=== PATIENT | female | born 1950 | race Caucasian/White ===

== ENCOUNTER 2020-04-20 09:05 | Outpatient (REF) | payer MEDICARE, MEDICAID, SELFPAY ==
--- NOTE | 2020-04-20 09:09 | MM_ITS ---
EXAMINATION: MM SCREENING DIGITAL BREAST TOMOSYNTHESIS, BILATERAL CLINICAL INFORMATION: Screening. Asymptomatic. The lifetime risk of breast cancer based on the Tyrer-Cuzick Model is 7.0%. COMPARISON: Mammography: April 15, 2019 and studies dating back to February 12, 2012 TECHNIQUE: Digital breast tomosynthesis is performed in both the craniocaudal and mediolateral oblique views along with computer-aided detection (CAD). Synthesized 2D images are generated from the tomosynthesis. FINDINGS: The breasts are heterogeneously dense, which may obscure small masses (ACR BI-RADS breast composition Category c). There are no significant masses, abnormal calcifications, or other abnormalities. MM/MM tomosynthesis screening BI IMPRESSION: There are no significant changes from prior study. ASSESSMENT: BI-RADS 1: Negative RECOMMENDATION: Routine annual mammography screening. This patient's information was entered into a reminder system with a target due date for their next mammogram.
== END 2020-04-20 09:06 | disposition home or self-care (01) ==
LOC: HO.MAMMO 09:05
PROVIDERS: PCP Internal Medicine; Visit Provider Internal Medicine
DX: Z12.31 Encounter for screening mammogram for malignant neoplasm of breast (principal)
CPT/HCPCS: 77063; 77067

== ENCOUNTER 2020-06-20 06:21 | Outpatient (REF) | payer MEDICARE, MEDICAID, SELFPAY ==
[2020-06-20 07:05] LABS: Basophils Absolute Auto 0.1 X10*3/uL (0.0-0.2); Basophils Percent Auto 0.9 % (0-2); Eosinophils Absolute Auto 0.3 X10*3/uL (0.0-0.4); Eosinophils Percent Auto 4.7 % (0-4); Hematocrit 38.9 % (37-47); Hemoglobin 12.8 g/dl (12.0-16.0); Imm Gran Abs Auto 0.02 X10*3/uL (0.00-0.03); Imm Gran Pct Auto 0.3 % (0.0-0.4); Lymphocytes Absolute Auto 1.7 X10*3/uL (1.2-4.9); Lymphocytes Percent Auto 24.8 % (20-40); MANUAL DIFF FLAG NO; Mean Corpuscular HGB Conc 32.9 g/dl (31.0-35.0); Mean Corpuscular Hemoglobin 29.3 pg (27.0-33.0); Mean Platelet Volume 10.2 fL (9.4-12.3); Monocytes Absolute Auto 0.5 X10*3/uL (0.1-1.2); Monocytes Percent Auto 7.5 % (2-11); Neutrophils Absolute Auto 4.2 X10*3/uL (2.0-8.3); Neutrophils Percent Auto 61.8 % (45-73); Platelet Count 289 X10*3/uL (160-400); Red Blood Count 4.37 X10*6/uL (4.20-5.50); Red Cell Distribution Width 12.1 % (11.0-16.0); White Blood Count 6.8 X10*3/uL (4.8-10.8)
[2020-06-20 07:24] LABS: Glucose Urine UA NEG (NEG); Leukocyte Esterase Urine 1+ (NEG); Nitrite Urine NEG (NEG); Urine Blood TRACE (NEG); Urine Ketones NEG (NEG); Urine Protein NEG (NEG-TRACE)
[2020-06-20 07:29] LABS: Appearance Urine HAZY; Color Urine YELLOW
[2020-06-20 07:47] LABS: Alanine Aminotransferase 16 U/L (0-31); Albumin Level 4.3 g/dL (3.5-5.0); Alkaline Phosphatase 60 U/L (39-117); Anion Gap 11 (12-20); Aspartate Amino Transferase 19 U/L (5-31); Bilirubin Total 0.7 mg/dL (0.0-1.0); Blood Urea Nitrogen 23 mg/dL (9-16); Calcium 9.2 mg/dL (8.4-10.2); Carbon Dioxide 29 mmol/L (22-29); Chloride 101 mmol/L (96-108); Cholesterol 182 mg/dL; Estimated Glomerular Filt Rate > 60; Glucose Fasting 108 mg/dL (60-99); HDL Cholesterol 51 mg/dL; LDL Cholesterol Calculated 110 mg/dl; Potassium 3.9 mmol/l (3.3-5.1); Sodium 137 mmol/L (135-145); Total Protein 7.1 g/dL (6.5-8.0); Triglycerides 109 mg/dL
[2020-06-20 07:57] LABS: Bacteria Urine 1+ /LPF; Squamous Epithelial Cell Urine 3+ /LPF
[2020-06-20 07:58] LABS: Estimated Average Glucose 126 mg/dL
[2020-06-20 08:13] LABS: TSH reflex Free T4 5.96 mIU/mL (0.32-4.0); Vitamin D 25-OH Total 21.7 ng/mL (>30)
[2020-06-20 08:55] LABS: Free T4 (Free Thyroxine) 1.01 ng/dL (0.71-1.85)
== END 2020-06-20 06:22 | disposition home or self-care (01) ==
LOC: HO.LAB 06:21
PROVIDERS: PCP Internal Medicine; Visit Provider Internal Medicine
DX: Z00.00 Encounter for general adult medical examination without abnormal findings (principal); E78.00 Pure hypercholesterolemia, unspecified; I10 Essential (primary) hypertension; R73.01 Impaired fasting glucose; M81.0 Age-related osteoporosis without current pathological fracture
CPT/HCPCS: 36415; 80053; 80061; 81001; 82306; 83036; 84439; 84443; 85025; 87086

== ENCOUNTER 2021-02-21 06:10 | Outpatient (REF) | payer MEDICARE, OTHER, SELFPAY ==
[2021-02-21 06:58] LABS: MANUAL DIFF FLAG NO
[2021-02-21 07:00] LABS: Basophils Absolute Auto 0.1 X10*3/uL (0.0-0.2); Basophils Percent Auto 0.8 % (0-2); Eosinophils Absolute Auto 0.4 X10*3/uL (0.0-0.4); Eosinophils Percent Auto 4.7 % (0-4); Hematocrit 38.6 % (37-47); Hemoglobin 12.8 g/dl (12.0-16.0); Imm Gran Abs Auto 0.02 X10*3/uL (0.00-0.03); Imm Gran Pct Auto 0.3 % (0.0-0.4); Lymphocytes Absolute Auto 1.9 X10*3/uL (1.2-4.9); Lymphocytes Percent Auto 25.4 % (20-40); Mean Corpuscular HGB Conc 33.2 g/dl (31.0-35.0); Mean Corpuscular Hemoglobin 29.9 pg (27.0-33.0); Mean Corpuscular Volume 90.2 fL (80-98); Mean Platelet Volume 10.5 fL (9.4-12.3); Monocytes Absolute Auto 0.6 X10*3/uL (0.1-1.2); Monocytes Percent Auto 7.8 % (2-11); Neutrophils Absolute Auto 4.5 X10*3/uL (2.0-8.3); Platelet Count 296 X10*3/uL (160-400); Red Blood Count 4.28 X10*6/uL (4.20-5.50); Red Cell Distribution Width 12.9 % (11.0-16.0); White Blood Count 7.4 X10*3/uL (4.8-10.8)
[2021-02-21 07:15] LABS: Glucose Urine UA NEG (NEG); Leukocyte Esterase Urine NEG (NEG); Nitrite Urine NEG (NEG); Urine Blood NEG (NEG); Urine Ketones NEG (NEG); Urine Protein NEG (NEG-TRACE)
[2021-02-21 07:18] LABS: Appearance Urine CLEAR; Color Urine YELLOW
[2021-02-21 07:28] LABS: Cholesterol 185 mg/dL; HDL Cholesterol 58 mg/dL; LDL Cholesterol Calculated 101 mg/dl; Triglycerides 131 mg/dL
[2021-02-21 07:51] LABS: Free T4 (Free Thyroxine) 0.98 ng/dL (0.71-1.85); Vitamin D 25-OH Total 37.3 ng/mL (>30)
== END 2021-02-21 06:11 | disposition home or self-care (01) ==
LOC: HO.LAB 06:10
PROVIDERS: PCP Internal Medicine; Visit Provider Internal Medicine
DX: E55.9 Vitamin D deficiency, unspecified (principal); I10 Essential (primary) hypertension; E78.00 Pure hypercholesterolemia, unspecified; R79.89 Other specified abnormal findings of blood chemistry; J30.9 Allergic rhinitis, unspecified
CPT/HCPCS: 36415; 80061; 81003; 82306; 84439; 84443; 85025

== ENCOUNTER 2021-03-13 08:18 | Outpatient (REF) | payer MEDICARE, MEDICAID, SELFPAY ==
--- NOTE | ~2021-03-13 | MM_ITS ---
EXAMINATION: BONE DENSITOMETRY CLINICAL INDICATION: Menopause. COMPARISON: Previous BD dated 02/10/2018 and baseline BD dated 06/01/2014. TECHNIQUE: Using a tydy DXA System (software version: 13.1) manufactured by [employer], dual-energy x-ray absorptiometry was performed of the lumbar spine and left hip. The images are of good technical quality. Summary results are attached. FINDINGS: AP SPINE L1-L4: Current: BMD 0.989 g/cm2, Z-score 0.2, T-score -1.6, osteopenia, 13.0% increase from previous, 9.2% increase from baseline (<5% change is not significant). Prior: BMD 0.875 g/cm2. Baseline: BMD 0.906 g/cm2. LEFT FEMUR, NECK: Current: BMD 0.855 g/cm2, Z-score 0.5, T-score -1.3, osteopenia. Prior: BMD 0.836 g/cm2. Baseline: BMD 0.832 g/cm2. LEFT FEMUR, TOTAL: Current: BMD 0.928 g/cm2, Z-score 1.0, T-score -0.6, normal, 3.8% increase from previous, 5.3% increase from baseline (<5% change is not significant). Prior: BMD 0.894 g/cm2. Baseline: BMD 0.881 g/cm2. IDENTIFIED RISK FACTORS: Menopause, Thiazide. HISTORY OF FRACTURE: None listed. MEDICATIONS: Vitamin D, bisphosphonate. MM/XR DEXA axial skeleton IMPRESSION: 1. DIAGNOSIS: Osteopenia based on the lowest T-score value of -1.6 in the lumbar spine applying World Health Organization criteria. 2. 10-YEAR FRACTURE RISK PREDICTION, FRAX: Major osteoporotic fracture (clinical spine, forearm, hip or shoulder) 5.4%. Hip fracture 0.8%. 3. Treatment Recommendations: NOF guidelines recommend consideration for treatment in postmenopausal women and men age 50 and older presenting with the following: -A hip or vertebral (clinical or morphometric) fracture. -T-score less than or equal to -2.5 at the femoral neck or spine after appropriate evaluation to exclude secondary causes. -Low bone mass at the hip or spine and a 10-year fracture probability by FRAX of greater than or equal to 3% for hip fracture or greater than or equal to 20% for major osteoporotic fracture based on the [place] adapted WHO algorithm. 4. Other Recommendations: All treatment decisions require clinical judgment and consideration of individual patient factors, including patient preferences, comorbidities, previous drug use, risk factors not captured in the FRAX model (e.g. frailty, falls, vitamin D deficiency, increased bone turnover, interval significant decline in bone density) and possible under or overestimation of fracture risk by FRAX. Additional medical evaluation for secondary cause of low bone mineral density may be appropriate. FUTURE SCAN RECOMMENDATION: People with diagnosed cases of osteoporosis or at high risk for fracture should have regular bone mineral density tests. For patients eligible for Medicare, routine testing is allowed once every 2 years. The testing frequency can be increased to one year for patients who have rapidly progressing disease, those who are receiving or discontinuing medical therapy to restore bone mass, or have additional risk factors.
== END 2021-03-13 08:19 | disposition home or self-care (01) ==
LOC: HO.MAMMO 08:18
PROVIDERS: Visit Provider Internal Medicine
DX: Z13.820 Encounter for screening for osteoporosis (principal); M85.80 Other specified disorders of bone density and structure, unspecified site; Z78.0 Asymptomatic menopausal state; Z79.899 Other long term (current) drug therapy
CPT/HCPCS: 77080

== ENCOUNTER 2021-04-22 08:13 | Outpatient (REF) | payer MEDICARE, MEDICAID, SELFPAY ==
--- NOTE | ~2021-04-22 | MM_ITS ---
EXAMINATION: MM SCREENING DIGITAL BREAST TOMOSYNTHESIS, BILATERAL CLINICAL INFORMATION: Screening. Asymptomatic. The lifetime risk of breast cancer based on the Tyrer-Cuzick Model is 6.5%. COMPARISON: Mammography: April 20, 2020 and studies dating back to July 20, 2011 TECHNIQUE: Digital breast tomosynthesis is performed in both the craniocaudal and mediolateral oblique views along with computer-aided detection (CAD). Synthesized 2D images are generated from the tomosynthesis. FINDINGS: The breasts are heterogeneously dense, which may obscure small masses (ACR BI-RADS breast composition Category c). There are no significant masses, abnormal calcifications, or other abnormalities. MM/MM tomosynthesis screening BI IMPRESSION: There are no significant changes from prior study. ASSESSMENT: BI-RADS 1: Negative RECOMMENDATION: Routine annual mammography screening. This patient's information was entered into a reminder system with a target due date for their next mammogram.
== END 2021-04-22 08:14 | disposition home or self-care (01) ==
LOC: HO.MAMMO 08:13
PROVIDERS: Visit Provider Internal Medicine
DX: Z12.31 Encounter for screening mammogram for malignant neoplasm of breast (principal)
CPT/HCPCS: 77063; 77067

== ENCOUNTER 2021-10-22 06:15 | Outpatient (REF) | payer MEDICARE, OTHER, SELFPAY ==
[2021-10-22 06:36] LABS: MANUAL DIFF FLAG NO
[2021-10-22 07:23] LABS: Basophils Absolute Auto 0.1 X10*3/uL (0.0-0.2); Basophils Percent Auto 0.8 % (0-2); Eosinophils Absolute Auto 0.3 X10*3/uL (0.0-0.4); Eosinophils Percent Auto 4.9 % (0-4); Hematocrit 37.1 % (37.0-47.0); Hemoglobin 12.2 g/dl (12.0-16.0); Imm Gran Abs Auto 0.02 X10*3/uL (0.00-0.03); Imm Gran Pct Auto 0.3 % (0.0-0.4); Lymphocytes Absolute Auto 1.8 X10*3/uL (1.2-4.9); Lymphocytes Percent Auto 27.2 % (20-40); Mean Corpuscular HGB Conc 32.9 g/dl (31.0-35.0); Mean Corpuscular Hemoglobin 29.8 pg (27.0-33.0); Mean Corpuscular Volume 90.5 fL (80.0-98.0); Mean Platelet Volume 10.4 fL (9.4-12.3); Monocytes Absolute Auto 0.6 X10*3/uL (0.1-1.2); Monocytes Percent Auto 9.4 % (2-11); Neutrophils Absolute Auto 3.7 x10*3/uL (2.0-8.3); Neutrophils Percent Auto 57.4 % (45-73); Platelet Count 288 X10*3/uL (160-400); Red Cell Distribution Width 12.5 % (11.0-16.0); White Blood Count 6.5 X10*3/uL (4.8-10.8)
[2021-10-22 07:51] LABS: Alanine Aminotransferase 16 U/L (0-31); Albumin Level 4.1 g/dL (3.5-5.0); Alkaline Phosphatase 63 U/L (39-117); Anion Gap 11 (12-20); Aspartate Amino Transferase 19 U/L (5-31); Bilirubin Total 0.7 mg/dL (0.0-1.0); Blood Urea Nitrogen 26 mg/dL (9-16); Calcium 9.6 mg/dL (8.4-10.2); Carbon Dioxide 30 mmol/L (22-29); Chloride 101 mmol/L (96-108); Cholesterol 188 mg/dL; Estimated Glomerular Filt Rate > 60; Glucose Fasting 123 mg/dL (60-99); HDL Cholesterol 48 mg/dL; LDL Cholesterol Calculated 112 mg/dl; Sodium 138 mmol/L (135-145); Triglycerides 143 mg/dL
[2021-10-22 08:14] LABS: TSH reflex Free T4 5.15 uIU/mL (0.32-4.0); Vitamin D 25-OH Total 24.8 ng/mL (>30)
[2021-10-22 08:21] LABS: Appearance Urine CLEAR; Color Urine YELLOW; Glucose Urine UA NEG (NEG); Leukocyte Esterase Urine NEG (NEG); Nitrite Urine NEG (NEG); Urine Blood NEG (NEG); Urine Ketones NEG (NEG); Urine Protein NEG (NEG-TRACE)
[2021-10-22 08:22] LABS: Estimated Average Glucose 128 mg/dL; Hemoglobin A1c % 6.1 %
[2021-10-22 09:17] LABS: Free T4 (Free Thyroxine) 0.92 ng/dL (0.71-1.85)
== END 2021-10-22 06:16 | disposition home or self-care (01) ==
LOC: HO.LAB 06:15
PROVIDERS: PCP Internal Medicine; Visit Provider Internal Medicine
DX: I10 Essential (primary) hypertension (principal); E78.00 Pure hypercholesterolemia, unspecified; E55.9 Vitamin D deficiency, unspecified; R73.01 Impaired fasting glucose
CPT/HCPCS: 36415; 80053; 80061; 81003; 82306; 83036; 84439; 84443; 85025

== ENCOUNTER 2021-10-31 10:04 | Outpatient (REF) | payer MEDICARE, OTHER, SELFPAY ==
--- NOTE | ~2021-10-31 | XR_ITS ---
EXAMINATION: XR FINGER, RIGHT CLINICAL INFORMATION: Pain in joints. COMPARISON: None. TECHNIQUE: 3 views right 2nd digit. FINDINGS: There is mild loss of joint space with periarticular spurring DIP joint 2nd digit with mild soft tissue swelling. In addition, there is mild loss of joint space in the PIP and DIP joints of all digits with mild periarticular spurring in the PIP joints of the 2nd and 3rd digits. Also visualized is mild loss of 1st carpometacarpal joint space with irregular-appearing articular surface. No acute fracture or lytic process seen. XR/XR finger RT min 2V IMPRESSION: Advanced degenerative changes in the DIP joint of the 2nd digits with exuberant periarticular spurring and mild soft tissue swelling. There are mild degenerative osteoarthritic changes PIP and DIP joints of the 2nd through 5th digits.
== END 2021-10-31 10:05 | disposition home or self-care (01) ==
LOC: HO.XRAY 10:04
PROVIDERS: PCP Internal Medicine; Visit Provider Internal Medicine
DX: M25.541 Pain in joints of right hand (principal)
CPT/HCPCS: 73140

== ENCOUNTER 2022-02-25 06:11 | Outpatient (REF) | payer MEDICARE, OTHER, SELFPAY ==
[2022-02-25 06:22] LABS: MANUAL DIFF FLAG NO
[2022-02-25 07:15] LABS: Basophils Absolute Auto 0.1 X10*3/uL (0.0-0.2); Basophils Percent Auto 1.1 % (0-2); Eosinophils Absolute Auto 0.4 X10*3/uL (0.0-0.4); Eosinophils Percent Auto 5.8 % (0-4); Hematocrit 37.1 % (37.0-47.0); Hemoglobin 12.4 g/dl (12.0-16.0); Imm Gran Abs Auto 0.02 X10*3/uL (0.00-0.03); Imm Gran Pct Auto 0.3 % (0.0-0.4); Lymphocytes Absolute Auto 2.2 X10*3/uL (1.2-4.9); Lymphocytes Percent Auto 34.3 % (20-40); Mean Corpuscular HGB Conc 33.4 g/dl (31.0-35.0); Mean Corpuscular Volume 89.6 fL (80.0-98.0); Mean Platelet Volume 10.4 fL (9.4-12.3); Monocytes Absolute Auto 0.5 X10*3/uL (0.1-1.2); Monocytes Percent Auto 7.8 % (2-11); Neutrophils Absolute Auto 3.2 x10*3/uL (2.0-8.3); Neutrophils Percent Auto 50.7 % (45-73); Platelet Count 283 X10*3/uL (160-400); Red Blood Count 4.14 X10*6/uL (4.20-5.50); Red Cell Distribution Width 12.7 % (11.0-16.0); White Blood Count 6.3 X10*3/uL (4.8-10.8)
[2022-02-25 07:17] LABS: Appearance Urine Clear; Color Urine Yellow; Glucose Urine UA Negative (Negative); Leukocyte Esterase Urine Negative (Negative); Nitrite Urine Negative (Negative); Urine Blood Negative (Negative); Urine Ketones Negative (Negative); Urine Protein Negative (Neg-Trace)
[2022-02-25 07:41] LABS: Alanine Aminotransferase 14 U/L (0-31); Albumin Level 4.3 g/dL (3.5-5.0); Alkaline Phosphatase 64 U/L (39-117); Anion Gap 14 (12-20); Aspartate Amino Transferase 18 U/L (5-31); Bilirubin Total 0.6 mg/dL (0.0-1.0); Blood Urea Nitrogen 23 mg/dL (9-16); Calcium 9.2 mg/dL (8.4-10.2); Carbon Dioxide 29 mmol/L (22-29); Chloride 102 mmol/L (96-108); Cholesterol 174 mg/dL; Estimated Glomerular Filt Rate 50; Glucose Fasting 104 mg/dL (60-99); HDL Cholesterol 55 mg/dL; LDL Cholesterol Calculated 90 mg/dl; Sodium 141 mmol/L (135-145); Total Protein 7.2 g/dL (6.5-8.0); Triglycerides 147 mg/dL; Uric Acid 7.8 mg/dL (2.4-5.7)
[2022-02-25 08:00] LABS: Erythrocyte Sedimentation Rate 7 MM/HR (0-20)
[2022-02-25 08:03] LABS: Thyroid Stimulating Hormone 5.28 uIU/mL (0.32-4.0); Vitamin D 25-OH Total 29.2 ng/mL (>30)
== END 2022-02-25 06:12 | disposition home or self-care (01) ==
LOC: HO.LAB 06:11
PROVIDERS: PCP Internal Medicine; Visit Provider Internal Medicine
DX: M25.549 Pain in joints of unspecified hand (principal); E78.00 Pure hypercholesterolemia, unspecified; R79.89 Other specified abnormal findings of blood chemistry; E55.9 Vitamin D deficiency, unspecified; I10 Essential (primary) hypertension
CPT/HCPCS: 36415; 80053; 80061; 81003; 82306; 84439; 84443; 84550; 85025; 85652

== ENCOUNTER 2022-04-28 09:13 | Outpatient (REF) | payer MEDICARE, OTHER, SELFPAY ==
--- NOTE | ~2022-04-28 | MM_ITS ---
EXAMINATION: MM SCREENING DIGITAL BREAST TOMOSYNTHESIS, BILATERAL CLINICAL INFORMATION: Screening. Asymptomatic. Status post left breast lumpectomy 1994 COMPARISON: Mammography: April 22, 2021 and studies dating back to January 10, 2014 TECHNIQUE: Digital breast tomosynthesis is performed in both the craniocaudal and mediolateral oblique views along with computer-aided detection (CAD). Synthesized 2D images are generated from the tomosynthesis. FINDINGS: There are scattered areas of fibroglandular density (ACR BI-RADS breast composition Category b). There are no significant masses, abnormal calcifications, or other abnormalities. MM/MM tomosynthesis screening BI IMPRESSION: No significant changes from prior exam. ASSESSMENT: BI-RADS 1: Negative RECOMMENDATION: Routine annual mammography screening. This patient's information was entered into a reminder system with a target due date for their next mammogram.
== END 2022-04-28 09:14 | disposition home or self-care (01) ==
LOC: HO.MAMMO 09:13
PROVIDERS: PCP Internal Medicine; Visit Provider Internal Medicine
DX: Z12.31 Encounter for screening mammogram for malignant neoplasm of breast (principal)
CPT/HCPCS: 77063; 77067

== ENCOUNTER 2022-06-25 06:21 | Outpatient (REF) | payer MEDICARE, OTHER, SELFPAY ==
[2022-06-25 06:26] LABS: MANUAL DIFF FLAG NO
[2022-06-25 07:26] LABS: Basophils Absolute Auto 0.1 X10*3/uL (0.0-0.2); Basophils Percent Auto 0.9 % (0-2); Eosinophils Absolute Auto 0.4 X10*3/uL (0.0-0.4); Eosinophils Percent Auto 5.8 % (0-4); Hemoglobin 12.6 g/dl (12.0-16.0); Imm Gran Abs Auto 0.01 X10*3/uL (0.00-0.03); Imm Gran Pct Auto 0.1 % (0.0-0.4); Lymphocytes Absolute Auto 1.8 X10*3/uL (1.2-4.9); Lymphocytes Percent Auto 27.4 % (20-40); Mean Corpuscular HGB Conc 32.3 g/dl (31.0-35.0); Mean Corpuscular Hemoglobin 29.2 pg (27.0-33.0); Mean Corpuscular Volume 90.5 fL (80.0-98.0); Mean Platelet Volume 10.6 fL (9.4-12.3); Monocytes Absolute Auto 0.5 X10*3/uL (0.1-1.2); Monocytes Percent Auto 7.3 % (2-11); Neutrophils Absolute Auto 3.9 x10*3/uL (2.0-8.3); Neutrophils Percent Auto 58.5 % (45-73); Platelet Count 305 X10*3/uL (160-400); Red Blood Count 4.31 X10*6/uL (4.20-5.50); Red Cell Distribution Width 12.5 % (11.0-16.0); White Blood Count 6.7 X10*3/uL (4.8-10.8)
[2022-06-25 07:58] LABS: Estimated Average Glucose 120 mg/dL; Hemoglobin A1c % 5.8 %
[2022-06-25 08:20] LABS: Alanine Aminotransferase 16 U/L (0-31); Albumin Level 4.4 g/dL (3.5-5.0); Alkaline Phosphatase 68 U/L (39-117); Anion Gap 14 (12-20); Aspartate Amino Transferase 17 U/L (5-31); Bilirubin Total 0.6 mg/dL (0.0-1.0); Blood Urea Nitrogen 29 mg/dL (9-16); Calcium 9.7 mg/dL (8.4-10.2); Carbon Dioxide 29 mmol/L (22-29); Chloride 102 mmol/L (96-108); Cholesterol 197 mg/dL; Estimated Glomerular Filt Rate 52; Glucose Fasting 108 mg/dL (60-99); HDL Cholesterol 54 mg/dL; LDL Cholesterol Calculated 112 mg/dl; Potassium 3.8 mmol/L (3.3-5.1); Sodium 141 mmol/L (135-145); Thyroid Stimulating Hormone 6.44 uIU/mL (0.32-4.0); Total Protein 7.3 g/dL (6.5-8.0); Triglycerides 159 mg/dL; Uric Acid 7.5 mg/dL (2.4-5.7)
[2022-06-25 08:25] LABS: Folate 16.2 ng/mL (> or = 4.0); Vitamin B12 462 pg/mL (200-900)
[2022-06-25 09:05] LABS: Appearance Urine Turbid; Color Urine Yellow; Glucose Urine UA Negative (Negative); Leukocyte Esterase Urine Moderate (2+) (Negative); Nitrite Urine Negative (Negative); PH 5.5 (5.0-9.0); UMIC TRIGGER UACC YES; Urine Blood Trace (Negative); Urine Ketones Negative (Negative); Urine Protein Negative (Neg-Trace)
[2022-06-25 09:13] LABS: Bacteria Urine 3+ (None Seen); Hyaline Casts Urine 0-2 /LPF (0-2); RBC Urine 0-2 /HPF (0-2); Squamous Epithelial Cell Urine >20 /HPF (0-2); UACC Culture Trigger YES; WBC Urine 21-50 /HPF (0-5)
[2022-06-25 13:12] LABS: Free T4 (Free Thyroxine) 0.88 ng/dL (0.71-1.85)
== END 2022-06-25 06:22 | disposition home or self-care (01) ==
LOC: HO.LAB 06:21
PROVIDERS: PCP Internal Medicine; Visit Provider Internal Medicine
DX: R73.01 Impaired fasting glucose (principal); E55.9 Vitamin D deficiency, unspecified; B02.29 Other postherpetic nervous system involvement; R20.2 Paresthesia of skin; E79.0 Hyperuricemia without signs of inflammatory arthritis and tophaceous disease; I10 Essential (primary) hypertension; E78.00 Pure hypercholesterolemia, unspecified
CPT/HCPCS: 36415; 80053; 80061; 81001; 81003; 82306; 82607; 82746; 83036; 84439; 84443; 84550; 85025; 87086

== ENCOUNTER 2023-01-13 06:02 | Outpatient (REF) | payer MEDICARE, OTHER, SELFPAY ==
[2023-01-13 06:19] LABS: MANUAL DIFF FLAG NO
[2023-01-13 07:25] LABS: Basophils Absolute Auto 0.1 X10*3/uL (0.0-0.2); Basophils Percent Auto 0.7 % (0-2); Eosinophils Absolute Auto 0.3 X10*3/uL (0.0-0.4); Hematocrit 36.4 % (37.0-47.0); Imm Gran Abs Auto 0.02 X10*3/uL (0.00-0.03); Imm Gran Pct Auto 0.3 % (0.0-0.4); Lymphocytes Percent Auto 29.2 % (20-40); Mean Corpuscular Hemoglobin 30.2 pg (27.0-33.0); Mean Corpuscular Volume 91.5 fL (80.0-98.0); Mean Platelet Volume 10.5 fL (9.4-12.3); Monocytes Absolute Auto 0.5 X10*3/uL (0.1-1.2); Monocytes Percent Auto 7.6 % (2-11); Neutrophils Absolute Auto 3.9 x10*3/uL (2.0-8.3); Neutrophils Percent Auto 57.2 % (45-73); Platelet Count 269 X10*3/uL (160-400); Red Blood Count 3.98 X10*6/uL (4.20-5.50); Red Cell Distribution Width 12.5 % (11.0-16.0); White Blood Count 6.9 X10*3/uL (4.8-10.8)
[2023-01-13 07:29] LABS: Appearance Urine Cloudy; Color Urine Yellow; Glucose Urine UA Negative (Negative); Leukocyte Esterase Urine Small (1+) (Negative); Nitrite Urine Negative (Negative); Specific Gravity - Urine 1.015 (1.005-1.025); UMIC TRIGGER UACC YES; Urine Blood Negative (Negative); Urine Ketones Negative (Negative); Urine Protein Negative (Neg-Trace)
[2023-01-13 07:31] LABS: Bacteria Urine 1+ (None Seen); Hyaline Casts Urine 0-2 /LPF (0-2); RBC Urine 0-2 /HPF (0-2); UACC Culture Trigger YES
[2023-01-13 07:31] LABS: Estimated Average Glucose 120 mg/dL; Hemoglobin A1c % 5.8 %
[2023-01-13 08:12] LABS: Alanine Aminotransferase 15 U/L (0-31); Albumin Level 4.2 g/dL (3.5-5.0); Alkaline Phosphatase 54 U/L (39-117); Anion Gap 12 (12-20); Aspartate Amino Transferase 18 U/L (5-31); Bilirubin Total 0.6 mg/dL (0.0-1.0); Blood Urea Nitrogen 24 mg/dL (9-16); Calcium 9.7 mg/dL (8.4-10.2); Carbon Dioxide 29 mmol/L (22-29); Chloride 103 mmol/L (96-108); Cholesterol 174 mg/dL; Estimated Glomerular Filt Rate > 60; Glucose Fasting 105 mg/dL (60-99); HDL Cholesterol 51 mg/dL; LDL Cholesterol Calculated 95 mg/dl; Potassium 3.8 mmol/L (3.3-5.1); Sodium 140 mmol/L (135-145); Total Protein 7.1 g/dL (6.5-8.0); Triglycerides 142 mg/dL
[2023-01-13 08:30] LABS: TSH reflex Free T4 5.46 uIU/mL (0.32-4.0); Vitamin D 25-OH Total 40.2 ng/mL (>30)
[2023-01-13 09:13] LABS: Free T4 (Free Thyroxine) 0.93 ng/dL (0.71-1.85)
== END 2023-01-13 06:03 | disposition home or self-care (01) ==
LOC: HO.LAB 06:02
PROVIDERS: PCP Internal Medicine; Visit Provider Internal Medicine
DX: E55.9 Vitamin D deficiency, unspecified (principal); I10 Essential (primary) hypertension; R73.01 Impaired fasting glucose; E78.00 Pure hypercholesterolemia, unspecified; R82.90 Unspecified abnormal findings in urine
CPT/HCPCS: 36415; 80053; 80061; 81001; 82306; 83036; 84439; 84443; 85025; 87086

== ENCOUNTER 2023-01-20 14:48 | Outpatient (AMB) | payer MEDICARE, MEDICAID, SELFPAY ==
[2023-01-20 14:52] VITALS: BP 116/60; PULSE 78; O2SAT 96; BMI 22.9
--- NOTE | 2023-01-20 14:52 | MHC.PC.OV ---
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 Accompanied by: Self / Same As Patient Allergies No Known Allergies [No Known Allergies*] Allergy (Verified 01/20/23 15:36) Medication List - Last Reconciled 01/20/23 by Jean Marie Lindsay MD alendronate 70 mg PO QWEEK 90 days atorvastatin 20 mg PO DAILY cholecalciferol (vitamin D3) 50 mcg PO DAILY 90 days famotidine 40 mg PO BEDTIME fluticasone propionate 50 mcg/actuation 2 sprays intranasal DAILY PRN 30 days hydrochlorothiazide 25 mg PO QAM latanoprost 0.005% 1 drp ophthalmic (eye) BEDTIME loratadine 10 mg PO DAILY PRN ropinirole 0.25 mg PO BEDTIME 30 days timolol maleate 0.5% 0 drps ophthalmic (eye) valsartan 160 mg PO DAILY 90 days Tobacco use date assessed: 01/20/23 Fall risk assessment: No Falls in past year Last assessed Fall Risk: 01/20/23 Dental Screening Dental Screen Date: 01/20/23 Did you have a dental visit in the last 12 months?: No Did you have a dental problem in the last 6 months where you did not have access to dental care?: No Was dental information given to patient?: Patient has dentist HPI 4M Follow Up hyperlipidemia, HTN HPI Details Patient comes in today for her follow up visit States that she feels okay She denies any headaches or dizziness Denies any chest pains, no SOB No nausea/vomiting, no abdominal pain No change in bowel habits noted Had her follow up labs done last week - to discuss her results [facility] Medical History Allergic rhinitis Benign essential hypertension Elevated TSH Glaucoma IFG (impaired fasting glucose) Impaired fasting glucose Medicare annual wellness visit, initial Osteoporosis Pure hypercholesterolemia Vitamin D deficiency Surgical History History of biopsy History of breast biopsy History of foot surgery History of hard lump in extremity History of tubal ligation Hx of colonoscopy (~09/22/16) Family History Father No problems noted. Mother Breast cancer Sister Breast cancer Sister Uterine cancer Brother DVT (deep venous thrombosis) Social History Housing: House Alcohol intake: current Alcohol intake frequency: a few times a week Alcohol type: wine Patient Tobacco Use Status: Former Tobacco user Second Hand Smoke Exposure: Yes service: No Current occupational status: retired Cognitive needs: No Hearing needs: No Vision needs: Yes Questionnaire PHQ-9 Over the last 2 weeks, how often have you been bothered by any of the following problems? 1. Little interest or pleasure in doing things: not at all 2. Feeling down, depressed, or hopeless: not at all 3. Trouble falling or staying asleep, or sleeping too much: not at all 4. Feeling tired or having little energy: not at all 5. Poor appetite or overeating: not at all 6. Feeling bad about yourself - or that you are a failure or have let yourself or your family down: not at all 7. Trouble concentrating on things, such as reading the newspaper or watching television: not at all 8. Moving or speaking so slowly that other people could have noticed. Or the opposite - being so fidgety or restless that you have been moving around a lot more than usual: not at all 9. Thoughts that you would be better off or of hurting yourself in some way: not at all Total score: 0 Depression Screening Interpretation: Negative 85223 - PHQ-9 Billing: Yes Source: Developed by Drs. Louis House, Supriya Dang, Severo Cid and colleagues, with an educational justine from [employer]. Thrive Questionnaire Date Thrive assessed: 01/20/23 I am a: Patient What is your living situation today?: I have a steady place to live Within the past 12 months, did the food you bought not last and you didn't have the money to get more?: Never true Within the past 12 months, did you worry whether your food would run out before you got money to buy more?: Never true Do you have trouble paying for medicines?: No Do you have trouble getting transportation to medical appointments?: No Do you have trouble paying your heating and electricity bill?: No Do you have trouble taking care of your child, family member or friend?: No Do you have trouble with day-to-day activities such as bathing, preparing meals, shopping, managing finances, etc.?: No Are you currently unemployed and looking for a job?: No Are you interested in more education?: No Please select the resources that you would like help with: None Currently or been in a relationship where the following occur: no concerns reported AUDIT C Alcohol Use Questionnaire (AUDIT-C) 1. How often do you have a drink containing alcohol?: 2-3 times a week 2. How many drinks containing alcohol do you have on a typical day when you are drinking?: 1 or 2 3. How often do you have six or more drinks on one occasion?: Never Total Score: 3 Score Reviewed/Action Taken: Yes LAITH-7 AMB Questionnaire LAITH-7 Date LAITH - 7 assessed: 01/20/23 Feeling nervous, anxious, or on edge: 0 = Not at all Not being able to stop or control worryin = Not at all Worrying too much about different things: 0 = Not at all Trouble relaxin = Not at all Being so restless that it is hard to sit still: 0 = Not at all Becoming easily annoyed or irritable: 0 = Not at all Feeling afraid as if something awful might happen: 0 = Not at all Total LAITH-7 score (0-4 normal; 5-9 mild; 10-14 moderate; 15-21 severe): 0 Source: Developed by Drs. Louis House, Supriya Dang, Severo Cid and colleagues, with an educational justine from [employer]. Review of Systems Const Denies chills, Denies fatigue, Denies fever(s) and Denies headache(s) ENT Denies dysphagia, Denies dizziness, Denies otalgia, Denies headache(s), Denies neck pain, Denies odynophagia and Denies sore throat Card Denies chest pain, Denies palpitations and Denies dyspnea Resp Denies cough and Denies dyspnea GI Denies abdominal pain, Denies constipation, Denies dysphagia, Denies heartburn, Denies diarrhea, Denies nausea, Denies odynophagia and Denies vomiting Denies difficulty voiding, Denies nocturia and Denies dysuria Musc Denies neck pain and Reports numbness (in the toes - worse at night) Neuro Details: (+) recurrent cramping pain in legs, worse at night Denies dizziness, Denies headache(s) and Reports numbness (in the toes - worse at night) Endo Denies fatigue and Denies palpitations Physical exam (Primary Care) Vital Signs: Last Vital Signs Pulse 78 01/20/23 14:52 BP 116/60 01/20/23 14:52 Pulse Ox 96 01/20/23 14:52 Oxygen Delivery Method Room Air 01/20/23 14:52 BMI result Body Mass Index 22.9 Tobacco/Smoking Status: Tobacco use Status Tobacco use date assessed 01/20/23 01/20/23 14:59 Patient Tobacco Use Status Former Tobacco user 01/20/23 14:59 PHQ-9: PHQ-9 Score PHQ-9: Total score 0 01/20/23 14:59 Depression Screening Interpretation: Negative Thrive Assessment: Date of Thrive Assessment Date Thrive assessed 01/20/23 01/20/23 14:59 Currently or been in a relationship where the following occur: no concerns reported Const General: no acute distress and alert HENMT Ears: TM's normal bilaterally and EAC's normal Face and sinus: Yes sinuses nontender Throat: Yes posterior oropharynx normal and Yes tonsils normal (no TP congestion noted) Neck Neck: Yes no lymphadenopathy and Yes supple Resp Auscultation: clear to auscultation bilaterally, no rales and no wheezes Cardio Rate: regular rate Rhythm: regular rhythm Heart sounds: no murmurs GI Palpation (GI): Soft to palpation and nontender Auscultation: normal bowel sounds Extrem General: Yes no clubbing, cyanosis or edema Results Reviewed Results Reviewed: Laboratory Tests 01/13/23 01/13/23 01/13/23 06:10 06:17 06:17 WBC 6.9 Hgb 12.0 Hct 36.4 L Plt Count 269 Sodium 140 Potassium 3.8 Creatinine 0.88 Estimated GFR > 60 Fasting Glucose 105 H Hemoglobin A1c % Calcium 9.7 AST 18 ALT 15 Triglycerides 142 Cholesterol 174 LDL Cholesterol, Calc 95 HDL Cholesterol 51 25-OH Vitamin D Total 40.2 TSH 5.46 H Free T4 0.93 Ur Specific [place] 1.015 Urine Protein Negative Urine Glucose (UA) Negative Urine Blood Negative 01/13/23 06:17 WBC Hgb Hct Plt Count Sodium Potassium Creatinine Estimated GFR Fasting Glucose Hemoglobin A1c % 5.8 Calcium AST ALT Triglycerides Cholesterol LDL Cholesterol, Calc HDL Cholesterol 25-OH Vitamin D Total TSH Free T4 Ur Specific [place] Urine Protein Urine Glucose (UA) Urine Blood Assessment and Plan Assessment & Plan (1) Pure hypercholesterolemia: Code(s): E78.00 - Pure hypercholesterolemia, unspecified Plan: Results of her labs done last week reviewed and discussed with patient - lipids have improved slightly from previous Reinforced low cholesterol diet Continue Atorvastatin 20 mg QD Will recheck labs in 4 months for follow up (2) Benign essential hypertension: Code(s): I10 - Essential (primary) hypertension Plan: Reinforced low sodium diet - goal is systolic BP of 130 to 140 mm or less Continue Valsartan 160 mg QD and HCTZ 25 mg QD (3) Impaired fasting glucose: Code(s): R73.01 - Impaired fasting glucose Plan: HgbA1c was at 5.8% on her labs done last week; was also at 5.8% a few months ago Reinforced low calorie diet/exercise as tolerated (4) Osteoporosis: Comment: BMD done in 2017 showed (+) osteoporosis - was started by previous PCP (Dr. Shearer) on Alendronate Rx in 2017 Code(s): M81.0 - Age-related osteoporosis without current pathological fracture Qualifiers: Osteoporosis type: age-related Presence of current pathological fracture: without current pathological fracture Qualified Code(s): M81.0 - Age-related osteoporosis without current pathological fracture Plan: Continue Alendronate 70 mg once a week and advised to continue Tx for a total of 5 years - Tx should be completed towards the end of this year since it was started sometime in 2018 Encouraged again to continue to stay active and exercise regularly and to continue on oral Calcium and Vitamin D supplements daily Repeat BMD done in February 2021 revealed (+) improvement in her BMD - AP spine BMD improved 13% from previous; left femur BMD is unchanged from previous but improved 5.3% from baseline Will continue to monitor BMD regularly to track her progress (5) Allergic rhinitis: Code(s): J30.9 - Allergic rhinitis, unspecified Qualifiers: Allergic rhinitis trigger: unspecified Allergic rhinitis seasonality: non-seasonal Qualified Code(s): J30.89 - Other allergic rhinitis Plan: Continue Loratadine 10 mg QD PRN and Fluticasone 50 mcg nasal spray QD PRN (6) Postherpetic neuralgia: Comment: S/P shingles in late April 2021 Code(s): B02.29 - Other postherpetic nervous system involvement Plan: S/P shingles in late April 2021; symptoms have gotten a lot better since Continue Gabapentin 100 mg TID (7) Vitamin D deficiency: Code(s): E55.9 - Vitamin D deficiency, unspecified Plan: Continue Vitamin D3 2000 units QD (8) Elevated TSH: Code(s): R79.89 - Other specified abnormal findings of blood chemistry Plan: TSH is still slightly elevated; Free T4 remains normal on her recent labs Patient remains clinically euthyroid - will continue to monitor her TFTs regularly (9) Osteoarthritis of finger: Code(s): M19.049 - Primary osteoarthritis, unspecified hand Qualifiers: Laterality: unspecified laterality Qualified Code(s): M19.049 - Primary osteoarthritis, unspecified hand Plan: X-rays of the right hand done in October 2021 revealed (+) advanced degenerative changes in the DIP joint of the 2nd digits with exuberant periarticular spurring and mild soft tissue swelling. There are mild degenerative osteoarthritic changes PIP and DIP joints of the 2nd through 5th digits (10) Glaucoma: Code(s): H40.9 - Unspecified glaucoma Qualifiers: Glaucoma type: unspecified Laterality: unspecified laterality Qualified Code(s): H40.9 - Unspecified glaucoma Plan: Continue Xalatan 0.005% eye drops 1 drop into affected eye once a day in the evening and Timolol 0.5% eyedrops 1 drop into affected eye once a day Follow up with ophthalmology (Dr. Powell) as scheduled Plan Follow up in 4 months Orders: Orders Comprehensive [place]. Panel Fast 4 Months E78.00 - Pure hypercholesterolemia, unspecified Lipid Panel 4 Months E78.00 - Pure hypercholesterolemia, unspecified Complete Blood Count Auto Diff 4 Months I10 - Essential (primary) hypertension Uric Acid 4 Months E79.0 - Hyperuricemia without signs of inflammatory arthritis and tophaceous disease Hemoglobin A1c 4 Months R73.01 - Impaired fasting glucose Free T4 (Free Thyroxine) 4 Months R79.89 - Other specified abnormal findings of blood chemistry Thyroid Stimulating Hormone 4 Months R79.89 - Other specified abnormal findings of blood chemistry Vitamin D 25-OH Total 4 Months E55.9 - Vitamin D deficiency, unspecified UA CC w/rflx Micro + Cult 4 Months R30.0 - Dysuria Coding Level of Care Code Est Pt Level 4 (92076) Diagnoses Pure hypercholesterolemia E78.00 Benign essential hypertension I10 Impaired fasting glucose R73.01 Osteoporosis M81.0 Osteoporosis type: age-related Presence of current pathological fracture: without current pathological fracture Allergic rhinitis J30.89 Allergic rhinitis trigger: unspecified Allergic rhinitis seasonality: non-seasonal Postherpetic neuralgia B02.29 Vitamin D deficiency E55.9 Elevated TSH R79.89 Osteoarthritis of finger M19.049 Laterality: unspecified laterality Glaucoma H40.9 Glaucoma type: unspecified Laterality: unspecified laterality
== END 2023-01-20 15:48 | disposition home or self-care (01) ==
PROVIDERS: Visit Provider Internal Medicine
DX: E78.00 Pure hypercholesterolemia, unspecified (principal); I10 Essential (primary) hypertension; E55.9 Vitamin D deficiency, unspecified; R73.01 Impaired fasting glucose; M81.0 Age-related osteoporosis without current pathological fracture; J30.89 Other allergic rhinitis; B02.29 Other postherpetic nervous system involvement; R79.89 Other specified abnormal findings of blood chemistry; M19.049 Primary osteoarthritis, unspecified hand; H40.9 Unspecified glaucoma
CPT/HCPCS: 99214

== ENCOUNTER 2023-05-04 08:55 | Outpatient (REF) | payer MEDICARE, OTHER, SELFPAY ==
--- NOTE | ~2023-05-04 | MM_ITS ---
EXAMINATION: MM SCREENING DIGITAL BREAST TOMOSYNTHESIS, BILATERAL CLINICAL INFORMATION: Screening. Asymptomatic. COMPARISON: Mammography: This study is compared with prior exams dating back to 2016. TECHNIQUE: Digital breast tomosynthesis is performed in both the craniocaudal and mediolateral oblique views along with computer-aided detection (CAD). Synthesized 2D images are generated from the tomosynthesis. FINDINGS: There are scattered areas of fibroglandular density (ACR BI-RADS breast composition Category b). There are no significant masses, abnormal calcifications, or other abnormalities. MM/MM tomosynthesis screening BI IMPRESSION: No mammographic evidence of malignancy. ASSESSMENT: BI-RADS BI-RADS 1 - Negative RECOMMENDATION: Routine annual mammography screening. 1 year F/U This examination should not preclude the clinical evaluation of a suspicious palpable abnormality. This patient's information was entered into a reminder system with a target due date for their next mammogram.
== END 2023-05-04 08:56 | disposition home or self-care (01) ==
LOC: HO.MAMMO 08:55
PROVIDERS: PCP Internal Medicine; Visit Provider Internal Medicine
DX: Z12.31 Encounter for screening mammogram for malignant neoplasm of breast (principal)
CPT/HCPCS: 77063; 77067

== ENCOUNTER → 2023-05-04 09:15 | Outpatient (BNV) | payer MEDICARE, SELFPAY | PROVIDERS: PCP Internal Medicine; Visit Provider Radiology Diagnostic Radiology | DX: Z12.31 Encounter for screening mammogram for malignant neoplasm of breast (principal) | CPT/HCPCS: 77063; 77067 ==

== ENCOUNTER 2023-05-19 06:00 | Outpatient (REF) | payer MEDICARE, OTHER, SELFPAY ==
[2023-05-19 06:19] LABS: MANUAL DIFF FLAG NO
[2023-05-19 06:58] LABS: Basophils Absolute Auto 0.1 X10*3/uL (0.0-0.2); Basophils Percent Auto 1.1 % (0-2); Eosinophils Absolute Auto 0.4 X10*3/uL (0.0-0.4); Eosinophils Percent Auto 5.9 % (0-4); Hematocrit 37.1 % (37.0-47.0); Hemoglobin 12.3 g/dl (12.0-16.0); Imm Gran Abs Auto 0.01 X10*3/uL (0.00-0.03); Imm Gran Pct Auto 0.1 % (0.0-0.4); Lymphocytes Percent Auto 27.9 % (20-40); Mean Corpuscular HGB Conc 33.2 g/dl (31.0-35.0); Mean Corpuscular Hemoglobin 30.4 pg (27.0-33.0); Mean Corpuscular Volume 91.8 fL (80.0-98.0); Mean Platelet Volume 10.5 fL (9.4-12.3); Monocytes Absolute Auto 0.6 X10*3/uL (0.1-1.2); Monocytes Percent Auto 7.9 % (2-11); Neutrophils Percent Auto 57.1 % (45-73); Platelet Count 294 X10*3/uL (160-400); Red Blood Count 4.04 X10*6/uL (4.20-5.50); Red Cell Distribution Width 12.7 % (11.0-16.0)
[2023-05-19 07:11] LABS: Estimated Average Glucose 131 mg/dL; Hemoglobin A1c % 6.2 % (<6.0)
[2023-05-19 07:17] LABS: Alanine Aminotransferase 14 U/L (0-31); Albumin Level 4.3 g/dL (3.5-5.0); Alkaline Phosphatase 61 U/L (39-117); Anion Gap 12 (12-20); Aspartate Amino Transferase 19 U/L (5-31); Bilirubin Total 0.7 mg/dL (0.0-1.0); Blood Urea Nitrogen 26 mg/dL (9-16); Calcium 9.7 mg/dL (8.4-10.2); Carbon Dioxide 29 mmol/L (22-29); Chloride 104 mmol/L (96-108); Cholesterol 182 mg/dL (<200); Estimated Glomerular Filt Rate > 60; Glucose Fasting 112 mg/dL (60-99); HDL Cholesterol 55 mg/dL (>40); LDL Cholesterol Calculated 98 mg/dL (<100); Potassium 3.9 mmol/L (3.3-5.1); Sodium 141 mmol/L (135-145); Total Protein 7.5 g/dL (6.5-8.0); Triglycerides 148 mg/dL (<150)
[2023-05-19 07:29] LABS: Uric Acid 7.2 mg/dL (2.4-5.7)
[2023-05-19 07:39] LABS: Free T4 (Free Thyroxine) 1.05 ng/dL (0.71-1.85); Thyroid Stimulating Hormone 5.25 uIU/mL (0.32-4.0)
[2023-05-19 07:48] LABS: Appearance Urine Clear; Color Urine Yellow; Glucose Urine UA Negative (Negative); Leukocyte Esterase Urine Trace (Negative); Nitrite Urine Negative (Negative); UMIC TRIGGER UACC YES; Urine Blood Negative (Negative); Urine Ketones Negative (Negative); Urine Protein Negative (Neg-Trace)
[2023-05-19 07:51] LABS: Bacteria Urine Trace (None Seen); Hyaline Casts Urine 0-2 /LPF (0-2); RBC Urine 0-2 /HPF (0-2); WBC Urine 0-5 /HPF (0-5)
== END 2023-05-19 06:01 | disposition home or self-care (01) ==
LOC: HO.LAB 06:00
PROVIDERS: PCP Internal Medicine; Visit Provider Internal Medicine
DX: E78.00 Pure hypercholesterolemia, unspecified (principal); E55.9 Vitamin D deficiency, unspecified; R73.01 Impaired fasting glucose; I10 Essential (primary) hypertension; E79.0 Hyperuricemia without signs of inflammatory arthritis and tophaceous disease
CPT/HCPCS: 36415; 80053; 80061; 81001; 82306; 83036; 84439; 84443; 84550; 85025

== ENCOUNTER 2023-05-26 08:43 | Outpatient (AMB) | payer MEDICARE, MEDICAID, SELFPAY ==
[2023-05-26 08:45] VITALS: BP 112/72; PULSE 75; O2SAT 96; BMI 22.7
--- NOTE | 2023-05-26 08:45 | MHC.PC.OV ---
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 Accompanied by: Self / Same As Patient Allergies No Known Allergies [No Known Allergies*] Allergy (Verified 05/26/23 09:06) Medication List - Last Reconciled 05/26/23 by Jean Marie Lindsay MD alendronate 70 mg PO QWEEK 90 days atorvastatin 20 mg PO DAILY cholecalciferol (vitamin D3) 50 mcg PO DAILY 90 days famotidine 40 mg PO BEDTIME fluticasone propionate 50 mcg/actuation 2 sprays intranasal DAILY PRN 30 days hydrochlorothiazide 25 mg PO QAM latanoprost 0.005% 1 drp ophthalmic (eye) BEDTIME loratadine 10 mg PO DAILY PRN ropinirole 0.25 mg PO BEDTIME 30 days timolol maleate 0.5% 0 drps ophthalmic (eye) valsartan 160 mg PO DAILY 90 days Tobacco use date assessed: 05/26/23 Fall risk assessment: No Falls in past year Last assessed Fall Risk: 05/26/23 Dental Screening Dental Screen Date: 05/26/23 Did you have a dental visit in the last 12 months?: No Did you have a dental problem in the last 6 months where you did not have access to dental care?: No Was dental information given to patient?: No HPI 4 month f/u HPI Details Patient comes in today for her follow up visit States that she feels okay Reports experiencing recurrent left leg pain, especially at night and when she tries to lie down on her left side Feels that the pain originates from her left lower back area behind her left hip States that the pain does not bother her when she is walking and moving around Still has on and off pain in her hands/fingers at times States that she just takes some OTC Ibuprofen as needed when her joint pains get worse and Ibuprofen is usually enough to calm her pain down She denies any headaches or dizziness Denies any chest pains, no SOB No nausea/vomiting, no abdominal pain No change in bowel habits noted Had her follow up labs done last week - to discuss her results [facility] Medical History IFG (impaired fasting glucose) Medicare annual wellness visit, initial Elevated TSH Vitamin D deficiency Allergic rhinitis Glaucoma Osteoporosis Impaired fasting glucose Benign essential hypertension Pure hypercholesterolemia Surgical History Hx of colonoscopy (~09/22/16) History of biopsy History of hard lump in extremity History of breast biopsy History of foot surgery History of tubal ligation Family History Father No problems noted. Mother Breast cancer Sister Breast cancer Sister Uterine cancer Brother DVT (deep venous thrombosis) Social History Housing: House Alcohol intake: current Alcohol intake frequency: a few times a week Alcohol type: wine Patient Tobacco Use Status: Former Tobacco user Second Hand Smoke Exposure: Yes service: No Current occupational status: retired Cognitive needs: No Hearing needs: No Vision needs: Yes Questionnaire PHQ-9 Over the last 2 weeks, how often have you been bothered by any of the following problems? 1. Little interest or pleasure in doing things: not at all 2. Feeling down, depressed, or hopeless: not at all 3. Trouble falling or staying asleep, or sleeping too much: not at all 4. Feeling tired or having little energy: not at all 5. Poor appetite or overeating: not at all 6. Feeling bad about yourself - or that you are a failure or have let yourself or your family down: not at all 7. Trouble concentrating on things, such as reading the newspaper or watching television: not at all 8. Moving or speaking so slowly that other people could have noticed. Or the opposite - being so fidgety or restless that you have been moving around a lot more than usual: not at all 9. Thoughts that you would be better off or of hurting yourself in some way: not at all Total score: 0 Depression Screening Interpretation: Negative Depression Screening Done: Yes 66391 - PHQ-9 Billing: Yes Source: Developed by Drs. Louis House, Supriya Dang, Severo Cid and colleagues, with an educational justine from [employer]. Thrive Questionnaire Date Thrive assessed: 05/26/23 I am a: Patient What is your living situation today?: I have a steady place to live Within the past 12 months, did the food you bought not last and you didn't have the money to get more?: Never true Within the past 12 months, did you worry whether your food would run out before you got money to buy more?: Never true Do you have trouble paying for medicines?: No Do you have trouble getting transportation to medical appointments?: No Do you have trouble paying your heating and electricity bill?: No Do you have trouble taking care of your child, family member or friend?: No Do you have trouble with day-to-day activities such as bathing, preparing meals, shopping, managing finances, etc.?: No Are you currently unemployed and looking for a job?: No Are you interested in more education?: No Please select the resources that you would like help with: None Currently or been in a relationship where the following occur: no concerns reported AUDIT C Alcohol Use Questionnaire (AUDIT-C) 1. How often do you have a drink containing alcohol?: 2-3 times a week 2. How many drinks containing alcohol do you have on a typical day when you are drinking?: 1 or 2 3. How often do you have six or more drinks on one occasion?: Never Total Score: 3 Score Reviewed/Action Taken: Yes LAITH-7 AMB Questionnaire LAITH-7 Date LAITH - 7 assessed: 05/26/23 Feeling nervous, anxious, or on edge: 0 = Not at all Not being able to stop or control worryin = Not at all Worrying too much about different things: 0 = Not at all Trouble relaxin = Not at all Being so restless that it is hard to sit still: 0 = Not at all Becoming easily annoyed or irritable: 0 = Not at all Feeling afraid as if something awful might happen: 0 = Not at all Total LAITH-7 score (0-4 normal; 5-9 mild; 10-14 moderate; 15-21 severe): 0 Source: Developed by Drs. Louis House, Supriya Dang, Severo Cid and colleagues, with an educational justine from [employer]. Review of Systems Const Denies fatigue, Denies fever(s) and Denies headache(s) ENT Denies dysphagia, Denies dizziness, Denies otalgia, Denies headache(s), Denies neck pain, Denies odynophagia and Denies sore throat Card Denies chest pain, Denies rapid heart rate, Denies palpitations and Denies dyspnea Resp Denies cough and Denies dyspnea GI Denies abdominal pain, Denies constipation, Denies dysphagia, Denies heartburn, Denies diarrhea, Denies nausea, Denies odynophagia and Denies vomiting Denies difficulty voiding, Denies nocturia, Denies dysuria and Denies urinary urgency Musc Reports back pain (on and off, over the left lower back, with pain radiating down leg often), Denies arthralgias, Denies neck pain and Reports numbness (on and off in the toes - worse at night) Skin/Breast Denies rash Neuro Details: (+) recurrent cramping pain in legs, worse at night Denies dizziness, Denies headache(s) and Reports numbness (on and off in the toes - worse at night) Endo Denies fatigue and Denies palpitations Physical exam (Primary Care) Vital Signs: Last Vital Signs Pulse 75 05/26/23 08:45 BP 112/72 05/26/23 08:45 Pulse Ox 96 05/26/23 08:45 Oxygen Delivery Method Room Air 05/26/23 08:45 BMI result Body Mass Index 22.7 Tobacco/Smoking Status: Tobacco use Status Tobacco use date assessed 05/26/23 05/26/23 08:50 Patient Tobacco Use Status Former Tobacco user 05/26/23 08:50 PHQ-9: PHQ-9 Score PHQ-9: Total score 0 05/26/23 08:50 Depression Screening Interpretation: Negative Thrive Assessment: Date of Thrive Assessment Date Thrive assessed 05/26/23 05/26/23 08:50 Currently or been in a relationship where the following occur: no concerns reported Const General: no acute distress and alert HENMT Ears: TM's normal bilaterally and EAC's normal Throat: Yes posterior oropharynx normal and Yes tonsils normal (no TP congestion noted) Neck Neck: Yes no lymphadenopathy and Yes supple Thyroid: Thyroid normal Resp Auscultation: clear to auscultation bilaterally, no rales and no wheezes Cardio Rate: regular rate Rhythm: regular rhythm Heart sounds: no murmurs GI Palpation (GI): Soft to palpation and nontender Auscultation: normal bowel sounds General: Yes no CVA tenderness Back/Spine/Pelvis Back: no CVA tenderness Thoracic/Lumbar Spine: lumbar spinal tenderness Sacroiliac joints: on the left tender to palpation Skin Rashes: no rashes Extrem General: Yes no clubbing, cyanosis or edema Results Reviewed Results Reviewed: Laboratory Tests 05/19/23 05/19/23 05/19/23 06:15 06:18 06:18 WBC 7.0 Hgb 12.3 Hct 37.1 Plt Count 294 Sodium 141 Potassium 3.9 Creatinine 0.89 Estimated GFR > 60 Fasting Glucose 112 H Hemoglobin A1c % 6.2 H Uric Acid 7.2 H Calcium 9.7 AST 19 ALT 14 Triglycerides 148 Cholesterol 182 LDL Cholesterol, Calc 98 HDL Cholesterol 55 25-OH Vitamin D Total 33.0 TSH 5.25 H Free T4 1.05 Ur Specific [place] 1.020 Urine Protein Negative Urine Glucose (UA) Negative Urine Blood Negative Assessment and Plan Assessment & Plan (1) Pure hypercholesterolemia: Code(s): E78.00 - Pure hypercholesterolemia, unspecified Plan: Results of her labs done last week reviewed and discussed with patient Reinforced low cholesterol diet Continue Atorvastatin 20 mg QD Will recheck her labs and fasting lipids in 4 months for follow up (2) Benign essential hypertension: Code(s): I10 - Essential (primary) hypertension Plan: Reinforced low sodium diet - goal is systolic BP of 130 to 140 mm or less Continue Valsartan 160 mg QD and HCTZ 25 mg QD (3) Impaired fasting glucose: Code(s): R73.01 - Impaired fasting glucose Plan: Her HgbA1c has increased to 6.2% on her labs done last week; was at 5.8% a few months ago Reinforced low calorie diet/exercise as tolerated (4) Osteoporosis: Comment: BMD done in 2018 showed (+) osteoporosis - was started by previous PCP (Dr. Shearer) on Alendronate Rx in 2018 Code(s): M81.0 - Age-related osteoporosis without current pathological fracture Qualifiers: Osteoporosis type: age-related Presence of current pathological fracture: without current pathological fracture Qualified Code(s): M81.0 - Age-related osteoporosis without current pathological fracture Plan: Continue Alendronate 70 mg once a week and advised to continue Tx for a total of 5 years - Tx should be completed towards the end of this year since it was started sometime in 2018 Encouraged again to continue to stay active and exercise regularly and to continue on oral Calcium and Vitamin D supplements daily Repeat BMD done in February 2021 revealed (+) improvement in her BMD - AP spine BMD improved 13% from previous; left femur BMD is unchanged from previous but improved 5.3% from baseline Will continue to monitor BMD regularly to track her progress - will order repeat BMD at her next follow up appt in early 2023 (5) Allergic rhinitis: Code(s): J30.9 - Allergic rhinitis, unspecified Qualifiers: Allergic rhinitis trigger: unspecified Allergic rhinitis seasonality: non-seasonal Qualified Code(s): J30.89 - Other allergic rhinitis Plan: Continue Loratadine 10 mg QD PRN and Fluticasone 50 mcg nasal spray QD PRN (6) Postherpetic neuralgia: Comment: S/P shingles in late April 2021 Code(s): B02.29 - Other postherpetic nervous system involvement Plan: S/P shingles in late April 2021; symptoms have gotten a lot better since Continue Gabapentin 100 mg TID (7) Vitamin D deficiency: Code(s): E55.9 - Vitamin D deficiency, unspecified Plan: Continue Vitamin D3 2000 units QD (8) Elevated TSH: Code(s): R79.89 - Other specified abnormal findings of blood chemistry Plan: TSH is still slightly elevated; Free T4 remains normal on her recent labs Patient remains clinically euthyroid - will continue to monitor her TFTs regularly (9) Osteoarthritis of finger: Code(s): M19.049 - Primary osteoarthritis, unspecified hand Qualifiers: Laterality: unspecified laterality Qualified Code(s): M19.049 - Primary osteoarthritis, unspecified hand Plan: X-rays of the right hand done in October 2021 revealed (+) advanced degenerative changes in the DIP joint of the 2nd digits with exuberant periarticular spurring and mild soft tissue swelling. There are mild degenerative osteoarthritic changes PIP and DIP joints of the 2nd through 5th digits Patient states that her joint pains (in her hands) are mostly manageable - takes OTC Ibuprofen only as needed (10) Low back pain radiating to left lower extremity: Code(s): M54.50 - Low back pain, unspecified; M79.605 - Pain in left leg Plan: Discussed that her recurrent left lower back pain and left lower extremity radicular pain appear to be most likely originating from her lower back - lumbar spine x-rays done back in 2014 revealed (+) hypertrophic sclerotic facet arthropathy at L5-S1, withmild spondylitic changes with endplate spurring Left hip x-rays done in 2019 came out normal Will send patient for repeat x-rays of the lumbar spine and left hip as well as left SI joint x-rays for further evaluation (11) Hyperuricemia: Code(s): E79.0 - Hyperuricemia without signs of inflammatory arthritis and tophaceous disease Plan: Advised that her serum uric acid level continues to gradually decline/improve and her uric acid level is now at 7.2 on her recent labs Patient denies experiencing any acute gout flares/joint pains other than those in her left lower back and hands/fingers, which are not likely due to gout Reinforced low purine diet (12) Glaucoma: Code(s): H40.9 - Unspecified glaucoma Qualifiers: Glaucoma type: unspecified Laterality: unspecified laterality Qualified Code(s): H40.9 - Unspecified glaucoma Plan: Continue Xalatan 0.005% eye drops 1 drop into affected eye once a day in the evening and Timolol 0.5% eyedrops 1 drop into affected eye once a day Follow up with ophthalmology (Dr. Powell) as scheduled Plan Follow up in 4 months Orders: Orders XR hip LT min 2V Today M25.552 - Pain in left hip, M54.50 - Low back pain, unspecified, M79.605 - Pain in left leg XR lumbar spine 2-3V Today M54.50 - Low back pain, unspecified, M79.605 - Pain in left leg XR sacroiliac joint min 3V Today M54.50 - Low back pain, unspecified, M79.605 - Pain in left leg Complete Blood Count Auto Diff 4 Months I10 - Essential (primary) hypertension Comprehensive [place]. Panel Fast 4 Months E78.00 - Pure hypercholesterolemia, unspecified UA CC w/rflx Micro + Cult 4 Months R30.0 - Dysuria Thyroid Stimulating Hormone 4 Months R79.89 - Other specified abnormal findings of blood chemistry Lipid Panel 4 Months E78.00 - Pure hypercholesterolemia, unspecified Hemoglobin A1c 4 Months R73.01 - Impaired fasting glucose Vitamin D 25-OH Total 4 Months E55.9 - Vitamin D deficiency, unspecified Free T4 (Free Thyroxine) 4 Months R79.89 - Other specified abnormal findings of blood chemistry Coding Level of Care Code Est Pt Level 4 (15529) Diagnoses Pure hypercholesterolemia E78.00 Benign essential hypertension I10 Impaired fasting glucose R73.01 Age-related osteoporosis without current pathological fracture M81.0 Osteoporosis type: age-related Presence of current pathological fracture: without current pathological fracture Non-seasonal allergic rhinitis, unspecified trigger J30.89 Allergic rhinitis trigger: unspecified Allergic rhinitis seasonality: non-seasonal Postherpetic neuralgia B02.29 Vitamin D deficiency E55.9 Elevated TSH R79.89 Osteoarthritis of finger, 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 Laterality: unspecified laterality Low back pain radiating to left lower extremity M54.50; M79.605 Hyperuricemia E79.0 Glaucoma, unspecified glaucoma type, unspecified laterality H40.9 Glaucoma type: unspecified Laterality: unspecified laterality
== END 2023-05-26 09:27 | disposition home or self-care (01) ==
PROVIDERS: PCP Internal Medicine; Visit Provider Internal Medicine
DX: E78.00 Pure hypercholesterolemia, unspecified (principal); I10 Essential (primary) hypertension; R73.01 Impaired fasting glucose; M81.0 Age-related osteoporosis without current pathological fracture; J30.89 Other allergic rhinitis; B02.29 Other postherpetic nervous system involvement; E55.9 Vitamin D deficiency, unspecified; R79.89 Other specified abnormal findings of blood chemistry; M19.049 Primary osteoarthritis, unspecified hand; M54.50 Low back pain, unspecified; M79.605 Pain in left leg; E79.0 Hyperuricemia without signs of inflammatory arthritis and tophaceous disease
CPT/HCPCS: 99214

== ENCOUNTER 2023-05-31 08:57 | Outpatient (REF) | payer MEDICARE, OTHER, SELFPAY ==
--- NOTE | ~2023-05-31 | XR_ITS ---
EXAMINATION: XR LUMBOSACRAL SPINE CLINICAL INFORMATION: Low back pain COMPARISON: 01/22/2015 TECHNIQUE: Three views of the lumbosacral spine. FINDINGS: There is mild dextroscoliosis of lumbar spine. There is straightening of lumbar lordosis. Vertebral bodies are well aligned and intervertebral discs are preserved. There are mild narrowing of L4-L5 and L5-S1 intervertebral disc spaces. There is marginal spurring of the endplates of L4-S1. Soft tissues are unremarkable. XR/XR lumbar spine 2-3V IMPRESSION: Mild degenerative changes of L4-S1 with straightening of lumbar lordosis
--- NOTE | ~2023-05-31 | XR_ITS ---
EXAMINATION: XR HIP, LEFT CLINICAL INFORMATION: Pain COMPARISON: None available. TECHNIQUE: Two views of the left hip . FINDINGS: No fracture. Alignment is anatomic. Hip joint space is maintained. Soft tissues are unremarkable. XR/XR hip LT min 2V IMPRESSION: Normal left hip.
--- NOTE | ~2023-05-31 | XR_ITS ---
EXAMINATION: XR SACROILIAC JOINTS CLINICAL INFORMATION: Low back pain COMPARISON: None available. TECHNIQUE: 3 views of the sacroiliac joints FINDINGS: Bones and soft tissues are normal. No fracture. Alignment is anatomic. Sacroiliac joint spaces are well-maintained without erosions or surrounding sclerosis. XR/XR sacroiliac joint min 3V IMPRESSION: Normal sacroiliac joints.
== END 2023-05-31 08:58 | disposition home or self-care (01) ==
LOC: HO.XRAY 08:57
PROVIDERS: PCP Internal Medicine; Visit Provider Internal Medicine
DX: M54.50 Low back pain, unspecified (principal); M79.605 Pain in left leg; M25.552 Pain in left hip
CPT/HCPCS: 72100; 72202; 73502

== ENCOUNTER 2023-07-09 08:11 | Outpatient (AMB) | payer MEDICARE, MEDICAID, SELFPAY ==
[2023-07-09 08:32] VITALS: BP 160/80; PULSE 77; TEMP 36.7; O2SAT 96; BMI 23.2
--- NOTE | 2023-07-09 08:32 | AM.OFFWIN_ITS ---
Intake Vital Signs 07/09/23 08:32 Height 5 ft 4 in Weight 135 lb BMI 23.2 BP 160/80 H Blood Pressure Location Rt brachial Position Sitting Pulse 77 Pulse Source Pulse Oximeter Temp 98.1 F Temp Source Oral Pulse Oximetry (%) 96 Oxygen Delivery Method Room Air Intake Visit Reasons: EST/right leg pain (lobby) Intake Note: pt is here today for rt leg pain started wednesday Patient Tobacco Use Status: Former Tobacco user Allergies No Known Allergies [No Known Allergies*] Allergy (Verified 07/09/23 08:37) Do you need a note to return to daycare/school/sports/work: No HPI HPI Comments History of Present Illness Details 72 y/o female who presents to walk in [facility] with c/o right LE severe pain that started Wednesday. Pt reports that pain starts at the Hip bone radiating down to right foot and toes. Describes the pain as throbbing and burning . Denies CP, SOB. Denies skin changes. Denies injury or trauma. [facility] Medical History IFG (impaired fasting glucose) Medicare annual wellness visit, initial Elevated TSH Vitamin D deficiency Allergic rhinitis Glaucoma Osteoporosis Impaired fasting glucose Benign essential hypertension Pure hypercholesterolemia Surgical History Hx of colonoscopy (~09/22/16) History of biopsy History of hard lump in extremity History of breast biopsy History of foot surgery History of tubal ligation Family History Father No problems noted. Mother Breast cancer Sister Breast cancer Sister Uterine cancer Brother DVT (deep venous thrombosis) Social History Housing: House Alcohol intake: current Alcohol intake frequency: a few times a week Alcohol type: wine Patient Tobacco Use Status: Former Tobacco user Second Hand Smoke Exposure: Yes service: No Current occupational status: retired Cognitive needs: No Hearing needs: No Vision needs: Yes Review of Systems Const All systems reviewed & are unremarkable except as noted in HPI and below Physical Exam Vital Signs: Last Vital Signs Temp 98.1 F 07/09/23 08:32 Pulse 77 07/09/23 08:32 BP 160/80 H 07/09/23 08:32 Pulse Ox 96 07/09/23 08:32 Oxygen Delivery Method Room Air 07/09/23 08:32 BMI result Body Mass Index 23.2 Const General: no acute distress Skin General skin exam: no rashes or lesions noted and no erythema Rashes: no rashes Trauma: no lacerations or abrasions Wounds: no wounds Hair: normal Neuro Gait exam (Neuro): Normal gait present Motor exam (neuro): 5/5 motor strength present throughout Sensory Exam: Abnormal lower extremity sensory exam Extrem General: Yes normal to inspection and Yes full ROM Right lower extremity: normal to inspection, full ROM, normal capillary refill, hip/thigh Details: normal to inspection and normal ROM; no tenderness and no swelling, knee Details: normal to inspection; no tenderness, no swelling and ROM abnormal and lower leg; no cyanosis, no edema and joint enlargement noted Left lower extremity: normal to inspection, full ROM and normal capillary refill; no cyanosis, no edema and joint enlargement noted Assessment & Plan Assessment & Plan (1) Right leg pain: Code(s): M79.604 - Pain in right leg Plan: - Ordered STAT US r/o DVT - Advised if pain worse to go to ED - Take Ibuprofen/Acetaminophen for pain relief. - Warm/cold therapy for pain relief. Orders: Orders US venous duplex LE RT Today M79.604 - Pain in right leg Coding Level of Care Code Est Pt Level 3 (09242) Diagnoses Right leg pain M79.604 Time Spent (min) 15
== END 2023-07-09 09:31 | disposition home or self-care (01) ==
PROVIDERS: PCP Internal Medicine; Visit Provider Nurse Practitioner Family
DX: M79.604 Pain in right leg (principal)
CPT/HCPCS: 99213

== ENCOUNTER 2023-07-09 10:53 | Outpatient (REF) | payer MEDICARE, OTHER, SELFPAY ==
--- NOTE | ~2023-07-09 | US_ITS ---
EXAMINATION: US VENOUS ULTRASOUND WITH DOPPLER LOWER EXTREMITY, RIGHT CLINICAL INFORMATION: Right leg pain. COMPARISON: None available. TECHNIQUE: Ultrasound of the deep veins is performed from the hip to the calf with compression sonography and color and pulse Doppler assessment. Spectral analysis with color-flow imaging is performed. FINDINGS: The common femoral vein is compressible and exhibits a normal phasic waveform; this suggests that the iliac veins are widely patent above. Within the proximal thigh, the visualized profunda femoris vein is normal. The examined greater saphenous vein and saphenofemoral junction are normal. Superficial femoral vein is patent in the proximal, mid and distal thigh. Popliteal vein is normal to the level of the trifurcation. On compression arana scale and color Doppler images, the visualized posterior tibial and peroneal veins of the calf are patent. No evidence of Walker's cyst. US/US venous duplex LE RT IMPRESSION: No evidence of deep vein thrombosis in the right lower extremity.
== END 2023-07-09 10:54 | disposition home or self-care (01) ==
LOC: HO.HMGCX 10:53
PROVIDERS: Visit Provider Physician Assistant Medical
DX: M79.604 Pain in right leg (principal)
CPT/HCPCS: 93971

== ENCOUNTER 2023-09-16 06:15 | Outpatient (REF) | payer MEDICARE, SELFPAY ==
[2023-09-16 06:27] LABS: MANUAL DIFF FLAG NO
[2023-09-16 07:29] LABS: Estimated Average Glucose 131 mg/dL; Hemoglobin A1c % 6.2 % (<6.0)
[2023-09-16 07:30] LABS: Basophils Percent Auto 0.6 % (0-2); Eosinophils Absolute Auto 0.1 X10*3/uL (0.0-0.4); Eosinophils Percent Auto 1.9 % (0-4); Hematocrit 35.1 % (37.0-47.0); Hemoglobin 11.9 g/dl (12.0-16.0); Imm Gran Abs Auto 0.03 X10*3/uL (0.00-0.03); Imm Gran Pct Auto 0.5 % (0.0-0.4); Lymphocytes Absolute Auto 1.3 X10*3/uL (1.2-4.9); Lymphocytes Percent Auto 20.5 % (20-40); Mean Corpuscular HGB Conc 33.9 g/dl (31.0-35.0); Mean Corpuscular Hemoglobin 30.4 pg (27.0-33.0); Mean Corpuscular Volume 89.5 fL (80.0-98.0); Mean Platelet Volume 10.1 fL (9.4-12.3); Monocytes Absolute Auto 0.5 X10*3/uL (0.1-1.2); Monocytes Percent Auto 7.8 % (2-11); Neutrophils Absolute Auto 4.3 x10*3/uL (2.0-8.3); Neutrophils Percent Auto 68.7 % (45-73); Platelet Count 274 X10*3/uL (160-400); Red Blood Count 3.92 X10*6/uL (4.20-5.50); Red Cell Distribution Width 12.9 % (11.0-16.0); White Blood Count 6.3 X10*3/uL (4.8-10.8)
[2023-09-16 07:46] LABS: Alanine Aminotransferase 16 U/L (0-31); Alkaline Phosphatase 62 U/L (39-117); Anion Gap 15 (12-20); Aspartate Amino Transferase 16 U/L (5-31); Bilirubin Total 0.3 mg/dL (0.0-1.0); Blood Urea Nitrogen 21 mg/dL (9-16); Calcium 9.2 mg/dL (8.4-10.2); Carbon Dioxide 28 mmol/L (22-29); Chloride 102 mmol/L (96-108); Cholesterol 195 mg/dL (<200); Estimated Glomerular Filt Rate > 60; Glucose Fasting 106 mg/dL (60-99); HDL Cholesterol 64 mg/dL (>40); LDL Cholesterol Calculated 111 mg/dL (<100); Potassium 3.7 mmol/L (3.3-5.1); Sodium 141 mmol/L (135-145); Total Protein 6.9 g/dL (6.5-8.0); Triglycerides 100 mg/dL (<150)
[2023-09-16 07:53] LABS: Free T4 (Free Thyroxine) 0.92 ng/dL (0.71-1.85); Thyroid Stimulating Hormone 5.84 uIU/mL (0.32-4.0); Vitamin D 25-OH Total 26.5 ng/mL (>30)
[2023-09-16 08:26] LABS: Appearance Urine Cloudy; Color Urine Yellow; Glucose Urine UA Negative (Negative); Leukocyte Esterase Urine Moderate (2+) (Negative); Nitrite Urine Negative (Negative); PH 6.5 (5.0-9.0); Specific Gravity - Urine 1.015 (1.005-1.025); UMIC TRIGGER UACC YES; Urine Blood Negative (Negative); Urine Ketones Negative (Negative); Urine Protein Negative (Neg-Trace)
[2023-09-16 08:29] LABS: Bacteria Urine 3+ (None Seen); Hyaline Casts Urine 0-2 /LPF (0-2); RBC Urine 0-2 /HPF (0-2); UACC Culture Trigger YES
== END 2023-09-16 06:16 | disposition home or self-care (01) ==
LOC: HO.LAB 06:15
PROVIDERS: PCP Internal Medicine; Visit Provider Internal Medicine
DX: I10 Essential (primary) hypertension (principal); R79.89 Other specified abnormal findings of blood chemistry; E78.00 Pure hypercholesterolemia, unspecified; R73.01 Impaired fasting glucose; E55.9 Vitamin D deficiency, unspecified
CPT/HCPCS: 36415; 80053; 80061; 81001; 82306; 83036; 84439; 84443; 85025; 87086

== ENCOUNTER 2023-09-24 09:29 | Outpatient (AMB) | payer MEDICARE, MEDICAID, SELFPAY ==
--- NOTE | 2023-09-24 09:36 | MHC.PC.OV ---
Vital Signs 09/24/23 09:38 Height 5 ft 4 in Weight 132 lb 4 oz BMI 22.7 BP 100/60 Blood Pressure Location Lt brachial Position Sitting Pulse 78 Pulse Source Pulse Oximeter Pulse Oximetry (%) 94 Oxygen Delivery Method Room Air Intake Visit Reasons: HTN, hyperlipidemia, IFG, hyperuricemia Intake Note: Patient is here to follow up on HTN, IFG, Hyperuricemia, Hyperlipidemia and lab results. 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 Curb Builder: Not Required per policy Accompanied by: Self / Same As Patient Allergies No Known Allergies [No Known Allergies*] Allergy (Verified 09/24/23 10:19) Medication List - Last Reconciled 09/24/23 by Jean Marie Lindsay MD alendronate 70 mg PO QWEEK 90 days atorvastatin 20 mg PO DAILY cholecalciferol (vitamin D3) 50 mcg PO DAILY 90 days famotidine 40 mg PO BEDTIME fluticasone propionate 50 mcg/actuation 2 sprays intranasal DAILY PRN 30 days hydrochlorothiazide 25 mg PO QAM latanoprost 0.005% 1 drp ophthalmic (eye) BEDTIME loratadine 10 mg PO DAILY PRN ropinirole 0.25 mg PO BEDTIME 30 days timolol maleate 0.5% 0 drps ophthalmic (eye) valsartan 160 mg PO DAILY 90 days Tobacco use date assessed: 09/24/23 Fall risk assessment: No Falls in past year Last assessed Fall Risk: 09/24/23 Dental Screening Dental Screen Date: 09/24/23 Did you have a dental visit in the last 12 months?: No Did you have a dental problem in the last 6 months where you did not have access to dental care?: No Was dental information given to patient?: No HPI HTN, hyperlipidemia, IFG, hyperuricemia HPI Details Patient comes in today for her follow up visit States that she feels okay Still has recurrent right lower back pain and right sciatica-like symptoms Was seen by Dr. Luciano for this last month and was tried on some oral prednisone, which she states provided only some temporary relief States that she is currently being scheduled for a nerve conduction test for further evaluation She denies any headaches or dizziness Denies any chest pains, no SOB No nausea/vomiting, no abdominal pain No change in bowel habits noted Had her follow up labs done last week - to discuss her results [facility] Medical History IFG (impaired fasting glucose) Medicare annual wellness visit, initial Elevated TSH Vitamin D deficiency Allergic rhinitis Glaucoma Osteoporosis Impaired fasting glucose Benign essential hypertension Pure hypercholesterolemia Surgical History Hx of colonoscopy (~09/22/16) History of biopsy History of hard lump in extremity History of breast biopsy History of foot surgery History of tubal ligation Family History Father No problems noted. Mother Breast cancer Sister Breast cancer Sister Uterine cancer Brother DVT (deep venous thrombosis) Social History Housing: House Alcohol intake: current Alcohol intake frequency: a few times a month Alcohol type: wine Patient Tobacco Use Status: Former Tobacco user e-Cigarette/Vaping Use: Never Used Second Hand Smoke Exposure: Yes service: No Current occupational status: retired Cognitive needs: No Hearing needs: No Vision needs: Yes (glasses) Questionnaire PHQ-9 Over the last 2 weeks, how often have you been bothered by any of the following problems? 1. Little interest or pleasure in doing things: not at all 2. Feeling down, depressed, or hopeless: not at all 3. Trouble falling or staying asleep, or sleeping too much: not at all 4. Feeling tired or having little energy: not at all 5. Poor appetite or overeating: not at all 6. Feeling bad about yourself - or that you are a failure or have let yourself or your family down: not at all 7. Trouble concentrating on things, such as reading the newspaper or watching television: not at all 8. Moving or speaking so slowly that other people could have noticed. Or the opposite - being so fidgety or restless that you have been moving around a lot more than usual: not at all 9. Thoughts that you would be better off or of hurting yourself in some way: not at all Total score: 0 Depression Screening Interpretation: Negative Depression Screening Done: Yes [id number] - PHQ-9 Billing: Yes Source: Developed by Drs. Louis House, Severo Corral and colleagues, with an educational justine from [employer]. Thrive Questionnaire Date Thrive assessed: 09/24/23 I am a: Patient What is your living situation today?: I have a steady place to live Within the past 12 months, did the food you bought not last and you didn't have the money to get more?: Never true Within the past 12 months, did you worry whether your food would run out before you got money to buy more?: Never true Do you have trouble paying for medicines?: No Do you have trouble getting transportation to medical appointments?: No Do you have trouble paying your heating and electricity bill?: No Do you have trouble taking care of your child, family member or friend?: No Do you have trouble with day-to-day activities such as bathing, preparing meals, shopping, managing finances, etc.?: No Are you currently unemployed and looking for a job?: No Are you interested in more education?: No Currently or been in a relationship where the following occur: no concerns reported THRIVE Score: 0 AUDIT C Alcohol Use Questionnaire (AUDIT-C) 1. How often do you have a drink containing alcohol?: 2-4 times a month 2. How many drinks containing alcohol do you have on a typical day when you are drinking?: 1 or 2 Total Score: 2 Score Reviewed/Action Taken: Yes LAITH-7 AMB Questionnaire LAITH-7 Date LAITH - 7 assessed: 09/24/23 Feeling nervous, anxious, or on edge: 0 = Not at all Not being able to stop or control worryin = Not at all Worrying too much about different things: 0 = Not at all Trouble relaxin = Not at all Being so restless that it is hard to sit still: 0 = Not at all Becoming easily annoyed or irritable: 0 = Not at all Feeling afraid as if something awful might happen: 0 = Not at all Total LAITH-7 score (0-4 normal; 5-9 mild; 10-14 moderate; 15-21 severe): 0 Source: Developed by Drs. Louis House, Severo Corral and colleagues, with an educational justine from [employer]. Review of Systems Const Denies chills, Denies fatigue, Denies fever(s) and Denies headache(s) ENT Denies dysphagia, Denies dizziness, Denies otalgia, Denies headache(s), Denies neck pain, Denies odynophagia and Denies sore throat Card Denies chest pain, Denies rapid heart rate, Denies palpitations and Denies dyspnea Resp Denies cough and Denies dyspnea GI Denies abdominal pain, Denies constipation, Denies dysphagia, Denies heartburn, Denies diarrhea, Denies nausea, Denies odynophagia and Denies vomiting Denies difficulty voiding, Denies nocturia, Denies dysuria and Denies urinary urgency Musc Reports back pain (on and off, over the right lower back, with pain radiating down leg often), Denies arthralgias, Denies neck pain and Reports numbness (on and off in the toes - worse at night) Skin/Breast Denies rash Neuro Details: (+) on and off cramping pain in legs, worse at night Denies dizziness, Denies headache(s) and Reports numbness (on and off in the toes - worse at night) Endo Denies fatigue and Denies palpitations Physical exam (Primary Care) Vital Signs: Last Vital Signs Pulse 78 09/24/23 09:38 BP 100/60 09/24/23 09:38 Pulse Ox 94 09/24/23 09:38 Oxygen Delivery Method Room Air 09/24/23 09:38 BMI result Body Mass Index 22.7 Tobacco/Smoking Status: Tobacco use Status Tobacco use date assessed 09/24/23 09/24/23 09:43 Patient Tobacco Use Status Former Tobacco user 09/24/23 09:43 e-Cigarette/Vaping Use Never Used 09/24/23 09:43 PHQ-9: PHQ-9 Score PHQ-9: Total score 0 09/24/23 09:43 Depression Screening Interpretation: Negative Thrive Assessment: Date of Thrive Assessment Date Thrive assessed 09/24/23 09/24/23 09:43 Currently or been in a relationship where the following occur: no concerns reported Const General: no acute distress and alert HENMT Ears: TM's normal bilaterally and EAC's normal Throat: Yes posterior oropharynx normal and Yes tonsils normal (no TP congestion noted) Neck Neck: Yes no lymphadenopathy and Yes supple Thyroid: Thyroid normal Resp Auscultation: clear to auscultation bilaterally, no rales and no wheezes Cardio Rate: regular rate Rhythm: regular rhythm Heart sounds: no murmurs GI Palpation (GI): Soft to palpation and nontender Auscultation: normal bowel sounds General: Yes no CVA tenderness Back/Spine/Pelvis Back: no CVA tenderness Thoracic/Lumbar Spine: lumbar spinal tenderness Sacroiliac joints: on the right tender to palpation Skin Rashes: no rashes Extrem General: Yes no clubbing, cyanosis or edema Results Reviewed Results Reviewed: Laboratory Tests 09/16/23 09/16/23 06:25 06:26 WBC 6.3 Hgb 11.9 L Hct 35.1 L Plt Count 274 Sodium 141 Potassium 3.7 Creatinine 0.86 Estimated GFR > 60 Fasting Glucose 106 H Hemoglobin A1c % 6.2 H Calcium 9.2 AST 16 ALT 16 Triglycerides 100 Cholesterol 195 LDL Cholesterol, Calc 111 H HDL Cholesterol 64 25-OH Vitamin D Total 26.5 L TSH 5.84 H Free T4 0.92 Ur Specific [place] 1.015 Urine Protein Negative Urine Glucose (UA) Negative Urine Blood Negative Urine Nitrite Negative Ur Leukocyte Esterase Moderate (2+) H Assessment and Plan Assessment & Plan (1) Pure hypercholesterolemia: Code(s): E78.00 - Pure hypercholesterolemia, unspecified Plan: Results of her labs done last week reviewed and discussed with patient Reinforced low cholesterol diet Continue Atorvastatin 20 mg QD Will recheck her labs and fasting lipids in 4 months for follow up (2) Benign essential hypertension: Code(s): I10 - Essential (primary) hypertension Plan: Reinforced low sodium diet - goal is systolic BP of 130 to 140 mm or less Continue Valsartan 160 mg QD and HCTZ 25 mg QD (3) Impaired fasting glucose: Code(s): R73.01 - Impaired fasting glucose Plan: Her HgbA1c has remained unchanged from previous at 6.2% on her labs done last week Reinforced low calorie/low carb diet/exercise as tolerated (4) Osteoporosis: Comment: BMD done in 2018 showed (+) osteoporosis - was started by previous PCP (Dr. Shearer) on Alendronate Rx in 2018 Code(s): M81.0 - Age-related osteoporosis without current pathological fracture Qualifiers: Osteoporosis type: age-related Presence of current pathological fracture: without current pathological fracture Qualified Code(s): M81.0 - Age-related osteoporosis without current pathological fracture Plan: Continue Alendronate 70 mg once a week and advised to continue Tx for a total of 5 years - Tx was completed at the end of 2022 since it was started sometime in 2017 Patient is encouraged again to continue to stay active and exercise regularly and to continue on oral Calcium and Vitamin D supplements daily Repeat BMD done in February 2021 revealed (+) improvement in her BMD - AP spine BMD improved 13% from previous; left femur BMD is unchanged from previous but improved 5.3% from baseline Will continue to monitor BMD regularly to track her progress Advised that it is now time to recheck her BMD - repeat BMD ordered (5) Allergic rhinitis: Code(s): J30.9 - Allergic rhinitis, unspecified Qualifiers: Allergic rhinitis trigger: unspecified Allergic rhinitis seasonality: non-seasonal Qualified Code(s): J30.89 - Other allergic rhinitis Plan: Continue Loratadine 10 mg QD PRN and Fluticasone 50 mcg nasal spray QD PRN (6) Postherpetic neuralgia: Comment: S/P shingles in late April 2021 Code(s): B02.29 - Other postherpetic nervous system involvement Plan: S/P shingles in late April 2021; symptoms have gotten a lot better since Continue Gabapentin 100 mg TID (7) Vitamin D deficiency: Code(s): E55.9 - Vitamin D deficiency, unspecified Plan: Continue Vitamin D3 2000 units QD - cautioned that her Vitamin D level has dropped from previous and she should take this regularly (8) Elevated TSH: Code(s): R79.89 - Other specified abnormal findings of blood chemistry Plan: TSH is still slightly elevated; Free T4 remains normal on her recent labs Patient remains clinically euthyroid - will continue to monitor her TFTs regularly (9) Osteoarthritis of finger: Code(s): M19.049 - Primary osteoarthritis, unspecified hand Qualifiers: Laterality: unspecified laterality Qualified Code(s): M19.049 - Primary osteoarthritis, unspecified hand Plan: X-rays of the right hand done in October 2021 revealed (+) advanced degenerative changes in the DIP joint of the 2nd digits with exuberant periarticular spurring and mild soft tissue swelling. There are mild degenerative osteoarthritic changes PIP and DIP joints of the 2nd through 5th digits Patient states that her joint pains (in her hands) are mostly manageable - takes OTC Ibuprofen only as needed (10) Low back pain radiating to left lower extremity: Code(s): M54.50 - Low back pain, unspecified; M79.605 - Pain in left leg Plan: Appears resolved She is advised again that her left lower back pain and left lower extremity radicular pain appear to have most likely originated from her lower back - lumbar spine x-rays done back in 2014 revealed (+) hypertrophic sclerotic facet arthropathy at L5-S1, withmild spondylitic changes with endplate spurring Left hip x-rays done in 2018 came out normal Repeat x-rays of the lumbar spine and left hip as well as left SI joint x-rays done back in May 2023 revealed only (+) mild degenerative changes of L4-S1 with straightening of lumbar lordosis; her hip and SI joint x-rays were normal She was seen by neurology last month for right-sided sciatica and is currently being scheduled for NCV for further evaluation (11) Hyperuricemia: Code(s): E79.0 - Hyperuricemia without signs of inflammatory arthritis and tophaceous disease Plan: Advised that her serum uric acid level has remained slightly elevated at 7.2 on her recent labs Patient denies experiencing any acute gout flares/joint pains other than those in her left lower back and hands/fingers, which are not likely due to gout Reinforced low purine diet (12) Glaucoma: Code(s): H40.9 - Unspecified glaucoma Qualifiers: Glaucoma type: unspecified Laterality: unspecified laterality Qualified Code(s): H40.9 - Unspecified glaucoma Plan: Continue Xalatan 0.005% eye drops 1 drop into affected eye once a day in the evening and Timolol 0.5% eyedrops 1 drop into affected eye once a day Follow up with ophthalmology (Dr. Powell) as scheduled Plan Follow up in 4 months Orders: Orders UA CC w/rflx Micro + Cult 4 Months R30.0 - Dysuria Comprehensive [place]. Panel Fast 4 Months E78.00 - Pure hypercholesterolemia, unspecified Vitamin D 25-OH Total 4 Months E55.9 - Vitamin D deficiency, unspecified Thyroid Stimulating Hormone 4 Months R79.89 - Other specified abnormal findings of blood chemistry XR DEXA axial skeleton Today Z78.0 - Asymptomatic menopausal state Uric Acid 4 Months M10.9 - Gout, unspecified Complete Blood Count Auto Diff 4 Months D64.9 - Anemia, unspecified Lipid Panel 4 Months E78.00 - Pure hypercholesterolemia, unspecified IRON PROFILE 4 Months D50.9 - Iron deficiency anemia, unspecified Hemoglobin A1c 4 Months R73.01 - Impaired fasting glucose Free T4 (Free Thyroxine) 4 Months R79.89 - Other specified abnormal findings of blood chemistry Thyroxine Binding Globulin 4 Months R79.89 - Other specified abnormal findings of blood chemistry Coding Level of Care Code Est Pt Level 4 (73253) Diagnoses Pure hypercholesterolemia E78.00 Benign essential hypertension I10 Impaired fasting glucose R73.01 Age-related osteoporosis without current pathological fracture M81.0 Osteoporosis type: age-related Presence of current pathological fracture: without current pathological fracture Non-seasonal allergic rhinitis, unspecified trigger J30.89 Allergic rhinitis trigger: unspecified Allergic rhinitis seasonality: non-seasonal Postherpetic neuralgia B02.29 Vitamin D deficiency E55.9 Elevated TSH R79.89 Osteoarthritis of finger, 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 Laterality: unspecified laterality Low back pain radiating to left lower extremity M54.50; M79.605 Hyperuricemia E79.0 Glaucoma, unspecified glaucoma type, unspecified laterality H40.9 Glaucoma type: unspecified Laterality: unspecified laterality
[2023-09-24 09:38] VITALS: BP 100/60; PULSE 78; O2SAT 94; BMI 22.7
== END 2023-09-24 10:26 | disposition home or self-care (01) ==
PROVIDERS: PCP Internal Medicine; Visit Provider Internal Medicine
DX: E78.00 Pure hypercholesterolemia, unspecified (principal); I10 Essential (primary) hypertension; R73.01 Impaired fasting glucose; M81.0 Age-related osteoporosis without current pathological fracture; J30.89 Other allergic rhinitis; B02.29 Other postherpetic nervous system involvement; E55.9 Vitamin D deficiency, unspecified; R79.89 Other specified abnormal findings of blood chemistry; M19.049 Primary osteoarthritis, unspecified hand; M54.50 Low back pain, unspecified; M79.605 Pain in left leg; E79.0 Hyperuricemia without signs of inflammatory arthritis and tophaceous disease
CPT/HCPCS: 99214

== ENCOUNTER 2024-01-12 06:01 | Outpatient (REF) | payer MEDICARE, MEDICAID, SELFPAY ==
[2024-01-12 06:24] LABS: MANUAL DIFF FLAG NO
[2024-01-12 08:57] LABS: Basophils Absolute Auto 0.1 X10*3/uL (0.0-0.2); Basophils Percent Auto 1.1 % (0-2); Eosinophils Absolute Auto 0.4 X10*3/uL (0.0-0.4); Eosinophils Percent Auto 6.3 % (0-4); Hematocrit 36.1 % (37.0-47.0); Hemoglobin 11.9 g/dl (12.0-16.0); Imm Gran Abs Auto 0.02 X10*3/uL (0.00-0.03); Imm Gran Pct Auto 0.3 % (0.0-0.4); Lymphocytes Absolute Auto 1.5 X10*3/uL (1.2-4.9); Lymphocytes Percent Auto 24.2 % (20-40); Mean Corpuscular Hemoglobin 29.6 pg (27.0-33.0); Mean Corpuscular Volume 89.8 fL (80.0-98.0); Mean Platelet Volume 10.8 fL (9.4-12.3); Monocytes Absolute Auto 0.5 X10*3/uL (0.1-1.2); Monocytes Percent Auto 8.1 % (2-11); Neutrophils Absolute Auto 3.7 x10*3/uL (2.0-8.3); Platelet Count 289 X10*3/uL (160-400); Red Blood Count 4.02 X10*6/uL (4.20-5.50); Red Cell Distribution Width 12.7 % (11.0-16.0); White Blood Count 6.2 X10*3/uL (4.8-10.8)
[2024-01-12 09:43] LABS: Alanine Aminotransferase 15 U/L (0-31); Albumin Level 4.2 g/dL (3.5-5.0); Alkaline Phosphatase 66 U/L (39-117); Anion Gap 14 (12-20); Aspartate Amino Transferase 19 U/L (5-31); Bilirubin Total 0.4 mg/dL (0.0-1.0); Blood Urea Nitrogen 24 mg/dL (9-16); Calcium 9.6 mg/dL (8.4-10.2); Carbon Dioxide 28 mmol/L (22-29); Chloride 102 mmol/L (96-108); Cholesterol 175 mg/dL (<200); Estimated Glomerular Filt Rate > 60; Glucose Fasting 104 mg/dL (60-99); HDL Cholesterol 52 mg/dL (>40); Iron 61 mcg/dL (30-160); LDL Cholesterol Calculated 94 mg/dL (<100); Percent Iron Saturation 22 % (15-50); Potassium 3.8 mmol/L (3.3-5.1); Sodium 140 mmol/L (135-145); Thyroid Stimulating Hormone 5.26 uIU/mL (0.32-4.0); Total Iron Binding Capacity 278 mcg/dL (228-428); Total Protein 7.2 g/dL (6.5-8.0); Triglycerides 146 mg/dL (<150); Unsaturated Iron Binding 217 ug/dL; Uric Acid 7.9 mg/dL (2.4-5.7); Vitamin D 25-OH Total 41.7 ng/mL (>30)
[2024-01-12 10:37] LABS: Appearance Urine Clear; Color Urine Yellow; Glucose Urine UA Negative (Negative); Leukocyte Esterase Urine Trace (Negative); Nitrite Urine Negative (Negative); PH 6.5 (5.0-9.0); Specific Gravity - Urine 1.015 (1.005-1.025); UMIC TRIGGER UACC YES; Urine Blood Negative (Negative); Urine Ketones Negative (Negative); Urine Protein Negative (Neg-Trace)
[2024-01-12 11:26] LABS: Bacteria Urine None Seen (None Seen); Hyaline Casts Urine 0-2 /LPF (0-2); RBC Urine 0-2 /HPF (0-2); WBC Urine 0-5 /HPF (0-5)
[2024-01-12 12:36] LABS: Estimated Average Glucose 126 mg/dL; Hemoglobin A1C 149.2975 umol/L
[2024-01-16 12:19] LABS: Thyroxine Binding Globulin 15.9 mcg/mL (13.5-30.9)
== END 2024-01-12 06:02 | disposition home or self-care (01) ==
LOC: HO.LAB 06:01
PROVIDERS: PCP Internal Medicine; Visit Provider Internal Medicine
DX: D64.9 Anemia, unspecified (principal); E78.00 Pure hypercholesterolemia, unspecified; D50.9 Iron deficiency anemia, unspecified; R73.01 Impaired fasting glucose; R79.89 Other specified abnormal findings of blood chemistry; E55.9 Vitamin D deficiency, unspecified; M10.9 Gout, unspecified
CPT/HCPCS: 36415; 80053; 80061; 81001; 81003; 82306; 83036; 83540; 84439; 84442; 84443; 84550; 85025

== ENCOUNTER 2024-01-21 09:48 | Outpatient (AMB) | payer MEDICARE, MEDICAID, SELFPAY ==
[2024-01-21 10:03] VITALS: BP 104/58; PULSE 72; O2SAT 95; BMI 22.3
--- NOTE | 2024-01-21 10:03 | MHC.PC.OV ---
Vital Signs 01/21/24 10:03 Height 5 ft 4 in Weight 130 lb BMI 22.3 BP 104/58 L Blood Pressure Location Lt brachial Position Sitting Pulse 72 Pulse Source Pulse Oximeter Pulse Oximetry (%) 95 Oxygen Delivery Method Room Air Intake Visit Reasons: 4 Month F/U Prefinish Operator Required: No Accompanied by: Self / Same As Patient Allergies No Known Allergies [No Known Allergies*] Allergy (Verified 01/21/24 11:15) Medication List - Last Reconciled 01/21/24 by Jean Marie Lindsay MD alendronate 70 mg PO QWEEK 90 days atorvastatin 20 mg PO DAILY cholecalciferol (vitamin D3) 50 mcg PO DAILY 90 days famotidine 40 mg PO BEDTIME fluticasone propionate 50 mcg/actuation 2 sprays intranasal DAILY PRN 30 days hydrochlorothiazide 25 mg PO QAM latanoprost 0.005% 1 drp ophthalmic (eye) BEDTIME loratadine 10 mg PO DAILY PRN ropinirole 0.25 mg PO BEDTIME 30 days timolol maleate 0.5% 0 drps ophthalmic (eye) valsartan 160 mg PO DAILY 90 days Tobacco use date assessed: 09/24/23 Fall risk assessment: No Falls in past year Last assessed Fall Risk: 01/21/24 Dental Screening Dental Screen Date: 09/24/23 HPI 4 Month F/U HPI Details Patient comes in today for her follow up visit States that she has been experiencing on and off dizziness for a while now Notes that she would sometimes wake up already feeling dizzy States that her dizziness is usually more of a sensation of lightheadedness and pressure-like sensation around her head but would on occasion, feel like her surroundings are moving or spinning around Also notes (+) problems with her hearing for a while now and feels that this has been slowly getting worse lately; she denies any ringing sensation in her ears and denies any ear pain or pressure She denies any headaches Denies any chest pains, no SOB No nausea/vomiting, no abdominal pain No change in bowel habits noted She had her follow up labs done last week - to discuss her results [facility] Medical History (Updated 01/21/24 @ 11:49 by Jean Marie Lindsay MD) IFG (impaired fasting glucose) Medicare annual wellness visit, initial Elevated TSH Vitamin D deficiency Allergic rhinitis Glaucoma Osteoporosis Impaired fasting glucose Benign essential hypertension Pure hypercholesterolemia Surgical History (Updated 01/21/24 @ 11:23 by Jean Marie Lindsay MD) Hx of colonoscopy (~09/22/16) History of biopsy History of hard lump in extremity History of breast biopsy History of foot surgery History of tubal ligation Family History Father No problems noted. Mother Breast cancer Sister Breast cancer Sister Uterine cancer Brother DVT (deep venous thrombosis) Social History Housing: House Alcohol intake: current Alcohol intake frequency: a few times a month Alcohol type: wine Patient Tobacco Use Status: Former Tobacco user e-Cigarette/Vaping Use: Never Used Second Hand Smoke Exposure: Yes service: No Current occupational status: retired Cognitive needs: No Hearing needs: No Vision needs: Yes (glasses) Questionnaire Thrive Questionnaire Date Thrive assessed: 09/24/23 LAITH-7 AMB Questionnaire LAITH-7 Date LAITH - 7 assessed: 09/24/23 Source: Developed by Drs. Louis House, Supriya Dang, Severo Cid and colleagues, with an educational justine from [employer]. Review of Systems Const Denies chills, Denies fatigue, Denies fever(s) and Denies headache(s) ENT Denies dysphagia, Reports dizziness (on and off - see HPI), Denies otalgia, Denies headache(s), Denies neck pain, Denies odynophagia, Denies tinnitus and Denies sore throat Card Denies chest pain, Denies rapid heart rate, Denies palpitations and Denies dyspnea Resp Denies cough and Denies dyspnea GI Denies abdominal pain, Denies constipation, Denies dysphagia, Denies heartburn, Denies diarrhea, Denies nausea, Denies odynophagia and Denies vomiting Denies difficulty voiding, Denies nocturia, Denies dysuria and Denies urinary urgency Musc Reports back pain (on and off, over the right lower back), Denies arthralgias, Denies neck pain and Reports numbness (on and off in the toes - worse at night) Skin/Breast Denies rash Neuro Details: (+) on and off cramping pain in legs, worse at night Reports dizziness (on and off - see HPI), Denies headache(s) and Reports numbness (on and off in the toes - worse at night) Endo Denies fatigue and Denies palpitations Physical exam (Primary Care) Vital Signs: Last Vital Signs Pulse 72 01/21/24 10:03 BP 104/58 L 01/21/24 10:03 Pulse Ox 95 01/21/24 10:03 Oxygen Delivery Method Room Air 01/21/24 10:03 BMI result Body Mass Index 5.2 Tobacco/Smoking Status: Tobacco use Status Tobacco use date assessed 09/24/23 01/21/24 10:05 Patient Tobacco Use Status Former Tobacco user 01/21/24 10:05 e-Cigarette/Vaping Use Never Used 01/21/24 10:05 Thrive Assessment: Date of Thrive Assessment Date Thrive assessed 09/24/23 01/21/24 10:05 Const General: no acute distress and alert HENMT Ears: TM's normal bilaterally and EAC's normal Throat: Yes posterior oropharynx normal and Yes tonsils normal (no TP congestion noted) Neck Neck: Yes no lymphadenopathy and Yes supple Thyroid: Thyroid normal Resp Auscultation: clear to auscultation bilaterally, no rales and no wheezes Cardio Rate: regular rate Rhythm: regular rhythm Heart sounds: no murmurs GI Palpation (GI): Soft to palpation and nontender Auscultation: normal bowel sounds General: Yes no CVA tenderness Back/Spine/Pelvis Back: no CVA tenderness Thoracic/Lumbar Spine: lumbar spinal tenderness (mild) Skin Rashes: no rashes Extrem General: Yes no clubbing, cyanosis or edema Results Reviewed Results Reviewed: Laboratory Tests 01/12/24 01/12/24 06:20 06:21 WBC 6.2 Hgb 11.9 L Hct 36.1 L Plt Count 289 Sodium 140 Potassium 3.8 Creatinine 0.85 Estimated GFR > 60 Fasting Glucose 104 H Hemoglobin A1c % 6.0 Uric Acid 7.9 H Calcium 9.6 AST 19 ALT 15 Triglycerides 146 Cholesterol 175 LDL Cholesterol, Calc 94 HDL Cholesterol 52 25-OH Vitamin D Total 41.7 TSH 5.26 H Free T4 0.90 T4-Binding Globulin 15.9 Ur Specific [place] 1.015 Urine Protein Negative Urine Glucose (UA) Negative Urine Blood Negative Urine Nitrite Negative Ur Leukocyte Esterase Trace H Assessment and Plan Assessment & Plan (1) Pure hypercholesterolemia: Code(s): E78.00 - Pure hypercholesterolemia, unspecified Plan: Results of her labs done last week reviewed and discussed with patient Reinforced low cholesterol diet Continue Atorvastatin 20 mg QD Will recheck her labs and fasting lipids in 4 months for follow up (2) Benign essential hypertension: Code(s): I10 - Essential (primary) hypertension Plan: Reinforced low sodium diet - goal is systolic BP of 130 to 140 mm or less Continue Valsartan 160 mg QD and HCTZ 25 mg QD Patient is advised that her blood pressure appears to be lower than usual for her today and she should continue to monitor her blood pressure regularly If her BP continues to stay low consistently, may need to consider lowering the dose of her diuretic (HCTZ) (3) Impaired fasting glucose: Code(s): R73.01 - Impaired fasting glucose Plan: Her HgbA1c was at 6.0% on her labs done last week - was previously at 6.2% a few months ago Reinforced low calorie/low carb diet/exercise as tolerated (4) Osteoporosis: Comment: BMD done in 2017 showed (+) osteoporosis - was started by previous PCP (Dr. Shearer) on Alendronate Rx in 2017 Code(s): M81.0 - Age-related osteoporosis without current pathological fracture Qualifiers: Osteoporosis type: age-related Presence of current pathological fracture: without current pathological fracture Qualified Code(s): M81.0 - Age-related osteoporosis without current pathological fracture Plan: Continue Alendronate 70 mg once a week and advised to continue Tx for a total of 5 years - Tx was completed at the end of 2022 since it was started sometime in 2017 Patient is encouraged again to continue to stay active and exercise regularly and to continue on oral Calcium and Vitamin D supplements daily Repeat BMD done in February 2021 revealed (+) improvement in her BMD - AP spine BMD improved 13% from previous; left femur BMD is unchanged from previous but improved 5.3% from baseline Will continue to monitor BMD regularly to track her progress Repeat BMD was previously ordered and she is scheduled to have this done in April 2024 (5) Allergic rhinitis: Code(s): J30.9 - Allergic rhinitis, unspecified Qualifiers: Allergic rhinitis trigger: unspecified Allergic rhinitis seasonality: non-seasonal Qualified Code(s): J30.89 - Other allergic rhinitis Plan: Continue Loratadine 10 mg QD PRN and Fluticasone 50 mcg nasal spray QD PRN (6) Postherpetic neuralgia: Comment: S/P shingles in late April 2021 Code(s): B02.29 - Other postherpetic nervous system involvement Plan: S/P shingles in late April 2021; symptoms have gotten a lot better since Continue Gabapentin 100 mg TID (7) Dizziness: Code(s): R42 - Dizziness and giddiness Plan: Patient has been experiencing recurrent bouts of dizziness for a few months now and these do not seem to be due to paroxysmal vertigo, based on her description of her symptoms Will refer her to ENT for further evaluation and management - suspect the possibility of Meniere's disease (8) Hearing loss: Code(s): H91.90 - Unspecified hearing loss, unspecified ear Qualifiers: Hearing loss type: unspecified Laterality: unspecified laterality Qualified Code(s): H91.90 - Unspecified hearing loss, unspecified ear Plan: Unclear at this time if this is simply hearing loss as a result of aging or if this is related to her symptoms of recurrent dizziness Will refer her to ENT for further evaluation and management (9) Vitamin D deficiency: Code(s): E55.9 - Vitamin D deficiency, unspecified Plan: Continue Vitamin D3 2000 units QD (10) Elevated TSH: Code(s): R79.89 - Other specified abnormal findings of blood chemistry Plan: Her TSH is still slightly elevated but free T4 remains normal on her recent labs Patient remains clinically euthyroid - will continue to monitor her TFTs regularly (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 There are mild degenerative osteoarthritic changes PIP and DIP joints of the 2nd through 5th digits Patient states that her joint pains (in her hands) are mostly manageable - takes OTC Ibuprofen only as needed (12) Low back pain radiating to left lower extremity: Code(s): M54.50 - Low back pain, unspecified; M79.605 - Pain in left leg Plan: Appears resolved with no recurrence She is advised again that her left lower back pain and left lower extremity radicular pain appear to have most likely originated from her lower back - lumbar spine x-rays done back in 2014 revealed (+) hypertrophic sclerotic facet arthropathy at L5-S1, withmild spondylitic changes with endplate spurring Left hip x-rays done in 2018 came out normal Repeat x-rays of the lumbar spine and left hip as well as left SI joint x-rays done back in May 2023 revealed only (+) mild degenerative changes of L4-S1 with straightening of lumbar lordosis; her hip and SI joint x-rays were normal (13) Hyperuricemia: Code(s): E79.0 - Hyperuricemia without signs of inflammatory arthritis and tophaceous disease Plan: Patient is advised that her serum uric acid level remained elevated at 7.9 on her recent labs (was at 7.2 previously) Patient denies experiencing any acute gout flares/joint pains other than those in her left lower back and hands/fingers, which are not likely due to gout Reinforced low purine diet and will continue to monitor this regularly (14) Glaucoma: Code(s): H40.9 - Unspecified glaucoma Qualifiers: Glaucoma type: unspecified Laterality: unspecified laterality Qualified Code(s): H40.9 - Unspecified glaucoma Plan: Continue Xalatan 0.005% eye drops 1 drop into affected eye once a day in the evening and Timolol 0.5% eyedrops 1 drop into affected eye once a day Follow up with ophthalmology (Dr. Powell) as scheduled Plan Follow up in 4 months Orders: Orders Complete Blood Count Auto Diff 4 Months D64.9 - Anemia, unspecified Comprehensive [place]. Panel Fast 4 Months E78.00 - Pure hypercholesterolemia, unspecified UA CC w/rflx Micro + Cult 4 Months R30.0 - Dysuria Vitamin D 25-OH Total 4 Months E55.9 - Vitamin D deficiency, unspecified Uric Acid 4 Months E79.0 - Hyperuricemia without signs of inflammatory arthritis and tophaceous disease Hemoglobin A1c 4 Months R73.01 - Impaired fasting glucose Lipid Panel 4 Months E78.00 - Pure hypercholesterolemia, unspecified Free T4 (Free Thyroxine) 4 Months R79.89 - Other specified abnormal findings of blood chemistry Thyroid Stimulating Hormone 4 Months R79.89 - Other specified abnormal findings of blood chemistry Referrals Ear/Nose/Throat Referral H91.90 - Unspecified hearing loss, unspecified ear, R42 - Dizziness and giddiness Coding Level of Care Code Est Pt Level 4 (39734) Complex EM visit Add On G2211 Diagnoses Pure hypercholesterolemia E78.00 Benign essential hypertension I10 Impaired fasting glucose R73.01 Age-related osteoporosis without current pathological fracture M81.0 Osteoporosis type: age-related Presence of current pathological fracture: without current pathological fracture Non-seasonal allergic rhinitis, unspecified trigger J30.89 Allergic rhinitis trigger: unspecified Allergic rhinitis seasonality: non-seasonal Postherpetic neuralgia B02.29 Dizziness R42 Hearing loss, unspecified hearing loss type, unspecified laterality H91.90 Hearing loss type: unspecified Laterality: unspecified laterality Vitamin D deficiency E55.9 Elevated TSH R79.89 Osteoarthritis of finger, 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 Laterality: unspecified laterality Low back pain radiating to left lower extremity M54.50; M79.605 Hyperuricemia E79.0 Glaucoma, unspecified glaucoma type, unspecified laterality H40.9 Glaucoma type: unspecified Laterality: unspecified laterality
== END 2024-01-21 11:06 | disposition home or self-care (01) ==
PROVIDERS: PCP Internal Medicine; Visit Provider Internal Medicine
DX: E78.00 Pure hypercholesterolemia, unspecified (principal); I10 Essential (primary) hypertension; R73.01 Impaired fasting glucose; M81.0 Age-related osteoporosis without current pathological fracture; J30.89 Other allergic rhinitis; B02.29 Other postherpetic nervous system involvement; R42 Dizziness and giddiness; H91.90 Unspecified hearing loss, unspecified ear; E55.9 Vitamin D deficiency, unspecified; R79.89 Other specified abnormal findings of blood chemistry; M19.049 Primary osteoarthritis, unspecified hand; M54.50 Low back pain, unspecified; M79.605 Pain in left leg; E79.0 Hyperuricemia without signs of inflammatory arthritis and tophaceous disease; H40.9 Unspecified glaucoma
CPT/HCPCS: 99214; G2211

== ENCOUNTER 2024-05-05 08:46 | Outpatient (REF) | payer MEDICARE, MEDICAID, SELFPAY ==
--- NOTE | ~2024-05-05 | MM_ITS ---
EXAMINATION: MM SCREENING DIGITAL BREAST TOMOSYNTHESIS, BILATERAL CLINICAL INFORMATION: Screening. Asymptomatic. COMPARISON: Mammography: Comparison is made with available priors TECHNIQUE: Digital breast mammography with tomosynthesis is performed in both the craniocaudal and mediolateral oblique views along with computer-aided detection (CAD). FINDINGS: There are scattered areas of fibroglandular density (ACR BI-RADS breast composition Category b). There are no significant masses, abnormal calcifications, or other abnormalities. MM/MM tomosynthesis screening BI IMPRESSION: No mammographic evidence of malignancy. ASSESSMENT: BI-RADS BI-RADS 1 - Negative RECOMMENDATION: Routine annual mammography screening. 1 year F/U This examination should not preclude the clinical evaluation of a suspicious palpable abnormality. This patient's information was entered into a reminder system with a target due date for their next mammogram. Electronically signed by: Chastity Guerrero DO 05/16/2024 09:13 AM [facility]
--- NOTE | ~2024-05-05 | MM_ITS ---
EXAMINATION: BONE DENSITOMETRY CLINICAL INDICATION: Menopause. COMPARISON: Previous BD dated 03/13/2021 and baseline BD dated 06/01/2014. TECHNIQUE: Using a [employer] DXA System (software version: 13.1) manufactured by [employer], dual-energy x-ray absorptiometry was performed of the lumbar spine and left hip. The images are of good technical quality. Summary results are attached. FINDINGS: LEFT FEMUR, NECK: Current: BMD 0.847 g/cm2, Z-score 0.6, T-score -1.4, osteopenia. Prior: BMD 0.855 g/cm2. Baseline: BMD 0.832 g/cm2. LEFT FEMUR, TOTAL: Current: BMD 0.939 g/cm2, Z-score 1.3, T-score -0.5, normal, 1.2% increase from previous, 6.6% increase from baseline (<5% change is not significant). Prior: BMD 0.928 g/cm2. Baseline: BMD 0.881 g/cm2. AP SPINE L1-L4: Current: BMD 1.006 g/cm2, Z-score 0.5, T-score -1.5, osteopenia, 1.7% increase from previous, 11.0% increase from baseline (<5% change is not significant). Prior: BMD 0.989 g/cm2. Baseline: BMD 0.906 g/cm2. IDENTIFIED RISK FACTORS: Menopause, thiazide. HISTORY OF FRACTURE: None listed. MEDICATIONS: Bisphosphonate. MM/XR DEXA axial skeleton IMPRESSION: 1. DIAGNOSIS: Osteopenia based on the lowest T-score value of -1.5 in the lumbar spine applying World Health Organization criteria. 2. 10-YEAR FRACTURE RISK PREDICTION, FRAX: Not performed in this patient on estrogen or bone building treatments. 3. Treatment Recommendations: NOF guidelines recommend consideration for treatment in postmenopausal women and men age 50 and older presenting with the following: -A hip or vertebral (clinical or morphometric) fracture. -T-score less than or equal to -2.5 at the femoral neck or spine after appropriate evaluation to exclude secondary causes. -Low bone mass at the hip or spine and a 10-year fracture probability by FRAX of greater than or equal to 3% for hip fracture or greater than or equal to 20% for major osteoporotic fracture based on the [place] adapted WHO algorithm. 4. Other Recommendations: All treatment decisions require clinical judgment and consideration of individual patient factors, including patient preferences, comorbidities, previous drug use, risk factors not captured in the FRAX model (e.g. frailty, falls, vitamin D deficiency, increased bone turnover, interval significant decline in bone density) and possible under or overestimation of fracture risk by FRAX. Additional medical evaluation for secondary cause of low bone mineral density may be appropriate. FUTURE SCAN RECOMMENDATION: People with diagnosed cases of osteoporosis or at high risk for fracture should have regular bone mineral density tests. For patients eligible for Medicare, routine testing is allowed once every 2 years. The testing frequency can be increased to one year for patients who have rapidly progressing disease, those who are receiving or discontinuing medical therapy to restore bone mass, or have additional risk factors. Electronically signed by: Ajay Starks MD 05/05/2024 11:45 AM [facility]
== END 2024-05-05 08:47 | disposition home or self-care (01) ==
LOC: HO.MAMMO 08:46
PROVIDERS: PCP Internal Medicine; Visit Provider Internal Medicine
DX: Z12.31 Encounter for screening mammogram for malignant neoplasm of breast (principal); Z13.820 Encounter for screening for osteoporosis; Z78.0 Asymptomatic menopausal state
CPT/HCPCS: 77063; 77067; 77080

== ENCOUNTER → 2024-05-05 09:00 | Outpatient (BNV) | payer MEDICARE, MEDICAID, SELFPAY | PROVIDERS: PCP Internal Medicine; Visit Provider Internal Medicine | DX: Z12.31 Encounter for screening mammogram for malignant neoplasm of breast (principal) | CPT/HCPCS: 77063; 77067 ==

== ENCOUNTER 2024-05-30 06:17 | Outpatient (REF) | payer MEDICARE, MEDICAID, SELFPAY ==
[2024-05-30 06:45] LABS: MANUAL DIFF FLAG NO
[2024-05-30 07:32] LABS: Basophils Absolute Auto 0.1 X10*3/uL (0.0-0.2); Eosinophils Absolute Auto 0.4 X10*3/uL (0.0-0.4); Eosinophils Percent Auto 5.1 % (0-4); Hematocrit 36.6 % (37.0-47.0); Hemoglobin 12.1 g/dl (12.0-16.0); Imm Gran Abs Auto 0.02 X10*3/uL (0.00-0.03); Imm Gran Pct Auto 0.3 % (0.0-0.4); Lymphocytes Absolute Auto 1.9 X10*3/uL (1.2-4.9); Lymphocytes Percent Auto 26.1 % (20-40); Mean Corpuscular HGB Conc 33.1 g/dl (31.0-35.0); Mean Corpuscular Hemoglobin 29.7 pg (27.0-33.0); Mean Corpuscular Volume 89.7 fL (80.0-98.0); Mean Platelet Volume 10.3 fL (9.4-12.3); Monocytes Absolute Auto 0.5 X10*3/uL (0.1-1.2); Monocytes Percent Auto 7.3 % (2-11); Neutrophils Absolute Auto 4.3 x10*3/uL (2.0-8.3); Neutrophils Percent Auto 60.2 % (45-73); Platelet Count 300 X10*3/uL (160-400); Red Blood Count 4.08 X10*6/uL (4.20-5.50); Red Cell Distribution Width 12.4 % (11.0-16.0); White Blood Count 7.1 X10*3/uL (4.8-10.8)
[2024-05-30 07:39] LABS: Appearance Urine Clear; Color Urine Yellow; Glucose Urine UA Negative (Negative); Leukocyte Esterase Urine Moderate (2+) (Negative); Nitrite Urine Negative (Negative); Specific Gravity - Urine 1.015 (1.005-1.025); UMIC TRIGGER UACC YES; Urine Blood Negative (Negative); Urine Ketones Negative (Negative); Urine Protein Negative (Neg-Trace)
[2024-05-30 07:42] LABS: Estimated Average Glucose 128 mg/dL; Hemoglobin A1C 132.0391 umol/L; Hemoglobin A1c % 6.1 % (<6.0); Total Hemoglobin (HGBA1C) 3059.1792 umol/L
[2024-05-30 07:46] LABS: Bacteria Urine 2+ (None Seen); Hyaline Casts Urine 0-2 /LPF (0-2); RBC Urine 0-2 /HPF (0-2); UACC Culture Trigger YES
[2024-05-30 08:01] LABS: Alanine Aminotransferase 20 U/L (0-31); Albumin Level 4.1 g/dL (3.5-5.0); Alkaline Phosphatase 65 U/L (39-117); Anion Gap 11 (12-20); Aspartate Amino Transferase 25 U/L (5-31); Bilirubin Total 0.4 mg/dL (0.0-1.0); Blood Urea Nitrogen 22 mg/dL (9-16); Calcium 9.5 mg/dL (8.4-10.2); Carbon Dioxide 29 mmol/L (22-29); Chloride 103 mmol/L (96-108); Cholesterol 170 mg/dL (<200); Estimated Glomerular Filt Rate 54; Glucose Fasting 103 mg/dL (60-99); HDL Cholesterol 58 mg/dL (>40); LDL Cholesterol Calculated 86 mg/dL (<100); Potassium 3.4 mmol/L (3.3-5.1); Sodium 140 mmol/L (135-145); Total Protein 6.9 g/dL (6.5-8.0); Triglycerides 131 mg/dL (<150); Uric Acid 6.9 mg/dL (2.4-5.7)
[2024-05-30 08:19] LABS: Free T4 (Free Thyroxine) 0.96 ng/dL (0.71-1.85); Thyroid Stimulating Hormone 5.55 uIU/mL (0.32-4.0); Vitamin D 25-OH Total 39.5 ng/mL (>30)
== END 2024-05-30 06:18 | disposition home or self-care (01) ==
LOC: HO.LAB 06:17
PROVIDERS: PCP Internal Medicine; Visit Provider Internal Medicine
DX: D64.9 Anemia, unspecified (principal); E55.9 Vitamin D deficiency, unspecified; E78.00 Pure hypercholesterolemia, unspecified; E79.0 Hyperuricemia without signs of inflammatory arthritis and tophaceous disease; R73.01 Impaired fasting glucose; R30.0 Dysuria
CPT/HCPCS: 36415; 80053; 80061; 81001; 82306; 83036; 84439; 84443; 84550; 85025; 87086

== ENCOUNTER 2024-06-02 10:33 | Outpatient (AMB) | payer MEDICARE, MEDICAID, SELFPAY ==
--- NOTE | 2024-06-02 10:40 | A.OFFPC_ITS ---
Vital Signs 06/02/24 10:41 Height 5 ft 4 in Weight 130 lb 6 oz BMI 22.4 BP 130/60 Blood Pressure Location Lt brachial Position Sitting Pulse 76 Pulse Source Pulse Oximeter Pulse Oximetry (%) 90 L Oxygen Delivery Method Room Air Intake Visit Reasons: 4 Month F/U Intake Note: Patient is here to follow up on HTN, Hypercholesterolemia, RLS. 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 Cigar Bander Hand: Not Required per policy Accompanied by: Self / Same As Patient Allergies No Known Allergies [No Known Allergies*] Allergy (Verified 06/02/24 11:03) Medication List - Last Reconciled 06/02/24 by Jean Marie Lindsay MD atorvastatin 20 mg PO DAILY cholecalciferol (vitamin D3) 50 mcg PO DAILY 90 days famotidine 40 mg PO BEDTIME fluticasone propionate 50 mcg/actuation 2 sprays intranasal DAILY PRN 30 days hydrochlorothiazide 25 mg PO QAM latanoprost 0.005% 1 drp ophthalmic (eye) BEDTIME loratadine 10 mg PO DAILY PRN ropinirole 0.25 mg PO BEDTIME 30 days timolol maleate 0.5% 0 drps ophthalmic (eye) valsartan 160 mg PO DAILY 90 days Tobacco use date assessed: 06/02/24 Fall risk assessment: No Falls in past year Last assessed Fall Risk: 06/02/24 Dental Screening Dental Screen Date: 09/24/23 HPI 4 Month F/U HPI Details Patient comes in today for her follow up visit States that she feels okay Still has on and off dizziness but states that these have not gotten significantly worse since her last visit She has described her dizziness as more of a sensation of lightheadedness and pressure-like sensation around her head She's also had problems with her hearing but denies any ringing sensation, pain or pressure in her ears She was previously referred to ENT for further evaluation and is scheduled to see them in a couple of more months She denies any headaches Denies any chest pains, no SOB No nausea/vomiting, no abdominal pain No change in bowel habits noted She had her follow up labs done a few days ago - to discuss her results She would also like to know how her recent BMD test came out FOR[facility]LY [facility] Medical History (Updated 06/04/24 @ 15:24 by Jean Marie Lindsay MD) Lumbar degenerative disc disease IFG (impaired fasting glucose) Medicare annual wellness visit, initial Elevated TSH Vitamin D deficiency Allergic rhinitis Glaucoma Osteoporosis Impaired fasting glucose Benign essential hypertension Pure hypercholesterolemia Surgical History Hx of colonoscopy (~09/22/16) History of biopsy History of hard lump in extremity History of breast biopsy History of foot surgery History of tubal ligation Family History Father No problems noted. Mother Breast cancer Sister Breast cancer Sister Uterine cancer Brother DVT (deep venous thrombosis) Social History Housing: House Alcohol intake: current Alcohol intake frequency: a few times a month Alcohol type: wine Patient Tobacco Use Status: Former Tobacco user e-Cigarette/Vaping Use: Never Used Second Hand Smoke Exposure: Yes service: No Current occupational status: retired Cognitive needs: No Hearing needs: No Vision needs: Yes (glasses) Questionnaire Thrive Questionnaire Date Thrive assessed: 09/24/23 LAITH-7 AMB Questionnaire LAITH-7 Date LAITH - 7 assessed: 09/24/23 Source: Developed by Drs. Louis House, Supriya Dang, Severo Cid and colleagues, with an educational justine from [employer]. Review of Systems Const Denies chills, Denies fatigue, Denies fever(s) and Denies headache(s) ENT Denies dysphagia, Reports dizziness (on and off - see HPI), Denies otalgia, Denies headache(s), Reports hearing loss, Denies neck pain, Denies odynophagia, Denies tinnitus and Denies sore throat Card Denies chest pain, Denies rapid heart rate, Denies palpitations and Denies dyspnea Resp Denies chest congestion, Denies cough and Denies dyspnea GI Denies abdominal pain, Denies constipation, Denies dysphagia, Denies heartburn, Denies diarrhea, Denies nausea, Denies odynophagia and Denies vomiting Denies difficulty voiding, Denies nocturia, Denies dysuria and Denies urinary urgency Musc Reports back pain (on and off, over the right lower back), Denies arthralgias, Denies neck pain and Reports numbness (on and off in the toes - worse at night) Skin/Breast Denies rash Neuro Details: (+) on and off cramping pain in legs, worse at night Reports dizziness (on and off - see HPI), Denies headache(s) and Reports numbness (on and off in the toes - worse at night) Endo Denies fatigue and Denies palpitations Physical exam (Primary Care) Vital Signs: Last Vital Signs Pulse 76 06/02/24 10:41 BP 130/60 06/02/24 10:41 Pulse Ox 90 L 06/02/24 10:41 Oxygen Delivery Method Room Air 06/02/24 10:41 BMI result Body Mass Index 22.4 Tobacco/Smoking Status: Tobacco use Status Tobacco use date assessed 06/02/24 06/02/24 10:41 Patient Tobacco Use Status Former Tobacco user 06/02/24 10:41 e-Cigarette/Vaping Use Never Used 06/02/24 10:41 Thrive Assessment: Date of Thrive Assessment Date Thrive assessed 09/24/23 06/02/24 10:41 Const General: no acute distress and alert HENMT Ears: TM's normal bilaterally and EAC's normal Throat: Yes posterior oropharynx normal and Yes tonsils normal (no TP congestion noted) Neck Neck: Yes no lymphadenopathy and Yes supple Thyroid: Thyroid normal Resp Auscultation: clear to auscultation bilaterally, no rales and no wheezes Cardio Rate: regular rate Rhythm: regular rhythm Heart sounds: no murmurs GI Palpation (GI): Soft to palpation and nontender Auscultation: normal bowel sounds General: Yes no CVA tenderness Back/Spine/Pelvis Back: no CVA tenderness Thoracic/Lumbar Spine: lumbar spinal tenderness (mild) Skin Rashes: no rashes Extrem General: Yes no clubbing, cyanosis or edema Results Reviewed Results Reviewed: Laboratory Tests 05/30/24 05/30/24 06:40 06:44 WBC 7.1 Hgb 12.1 Hct 36.6 L Plt Count 300 Sodium 140 Potassium 3.4 Creatinine 1.01 Estimated GFR 54 Fasting Glucose 103 H Hemoglobin A1c % 6.1 H Uric Acid 6.9 H Calcium 9.5 AST 25 ALT 20 Triglycerides 131 Cholesterol 170 LDL Cholesterol, Calc 86 HDL Cholesterol 58 25-OH Vitamin D Total 39.5 TSH 5.55 H Free T4 0.96 Ur Specific [place] 1.015 Urine Protein Negative Urine Glucose (UA) Negative Urine Blood Negative Urine Nitrite Negative Ur Leukocyte Esterase Moderate (2+) H Coding Level of Care Code Est Pt Level 4 (62613) Complex EM visit Add On G2211 Diagnoses Pure hypercholesterolemia E78.00 Benign essential hypertension I10 Impaired fasting glucose R73.01 Age-related osteoporosis without current pathological fracture M81.0 Osteoporosis type: age-related Presence of current pathological fracture: without current pathological fracture Non-seasonal allergic rhinitis, unspecified trigger J30.89 Allergic rhinitis trigger: unspecified Allergic rhinitis seasonality: non-seasonal Postherpetic neuralgia B02.29 Dizziness R42 Hearing loss, unspecified hearing loss type, unspecified laterality H91.90 Hearing loss type: unspecified Laterality: unspecified laterality Vitamin D deficiency E55.9 Elevated TSH R79.89 Osteoarthritis of finger, 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 Laterality: unspecified laterality Hyperuricemia E79.0 Degeneration of intervertebral disc of lumbar region with discogenic back pain M51.360 Disc-related pain type: discogenic back pain only Glaucoma, unspecified glaucoma type, unspecified laterality H40.9 Glaucoma type: unspecified Laterality: unspecified laterality Assessment & Plan Assessment & Plan (1) Pure hypercholesterolemia: Code(s): E78.00 - Pure hypercholesterolemia, unspecified Category: Medical Plan: Results of her labs done a few days ago reviewed and discussed with patient Reinforced low cholesterol diet Continue Atorvastatin 20 mg QD Will recheck her labs and fasting lipids in 4 months for follow up (2) Benign essential hypertension: Code(s): I10 - Essential (primary) hypertension Category: Medical Plan: Reinforced low sodium diet - goal is systolic BP of 130 to 140 mm or less Continue Valsartan 160 mg QD and HCTZ 25 mg QD Patient is advised that her blood pressure appears to be lower than usual for her today and she should continue to monitor her blood pressure regularly If her BP continues to stay low consistently, may need to consider lowering the dose of her diuretic (HCTZ) (3) Impaired fasting glucose: Code(s): R73.01 - Impaired fasting glucose Category: Medical Plan: Her HgbA1c was at 6.1% on her labs done a few days ago - was previously at 6.0% a few months ago Reinforced low calorie/low carb diet/exercise as tolerated (4) Osteoporosis: Comment: BMD done in 2018 showed (+) osteoporosis - was started by previous PCP (Dr. Shearer) on Alendronate Rx in 2018 Code(s): M81.0 - Age-related osteoporosis without current pathological fracture Category: Medical Qualifiers: Osteoporosis type: age-related Presence of current pathological fracture: without current pathological fracture Qualified Code(s): M81.0 - Age- related osteoporosis without current pathological fracture Plan: Patient is S/P Tx with Alendronate x 5 years - Tx was started sometime in 2017 and completed at the end of 2022 Her repeat BMD done last month on 05/05/2024 revealed (+) improvement from previous and she is now in the osteopenic range, based on the lowest T-score value of -1.5 in the lumbar spine Her BMD is mostly unchanged from her previous numbers but has improved by 6.6% from her baseline in 2013 in the left femur and by 11% from her baseline in 2013 in the AP spine Her BMD done in February 2021 revealed (+) improvement in her BMD - AP spine BMD improved 13% from previous; left femur BMD is unchanged from previous but improved 5.3% from baseline Patient is encouraged again to continue to stay active and exercise regularly and to continue on oral Calcium and Vitamin D supplements daily Will continue to monitor BMD regularly every 2 to 3 years to track her progress (5) Allergic rhinitis: Code(s): J30.9 - Allergic rhinitis, unspecified Category: Medical Qualifiers: Allergic rhinitis trigger: unspecified Allergic rhinitis seasonality: non-seasonal Qualified Code(s): J30.89 - Other allergic rhinitis Plan: Continue Loratadine 10 mg QD PRN and Fluticasone 50 mcg nasal spray QD PRN (6) Postherpetic neuralgia: Comment: S/P shingles in late April 2021 Code(s): B02.29 - Other postherpetic nervous system involvement Category: Medical Plan: S/P shingles in late April 2021; symptoms have gotten a lot better since Continue Gabapentin 100 mg TID (7) Dizziness: Code(s): R42 - Dizziness and giddiness Category: Medical Plan: Patient has been experiencing recurrent bouts of dizziness for a few months now and these do not seem to be due to paroxysmal vertigo, based on her description of her symptoms She was referred to ENT for further evaluation and management, as we are suspecting the possibility of Meniere's disease, but she has not yet been seen (8) Hearing loss: Code(s): H91.90 - Unspecified hearing loss, unspecified ear Category: Medical Qualifiers: Hearing loss type: unspecified Laterality: unspecified laterality Butch lified Code(s): H91.90 - Unspecified hearing loss, unspecified ear Plan: It is unclear whether this is simply hearing loss as a result of aging or if this is related to her symptoms of recurrent dizziness She has been referred to ENT for further evaluation and management and she is currently still waiting to be seen (9) Vitamin D deficiency: Code(s): E55.9 - Vitamin D deficiency, unspecified Category: Medical Plan: Continue Vitamin D3 2000 units QD (10) Elevated TSH: Code(s): R79.89 - Other specified abnormal findings of blood chemistry Category: Medical Plan: Her TSH is still slightly elevated but free T4 remains normal on her recent labs Patient remains clinically euthyroid - will continue to monitor her TFTs regularly (11) Osteoarthritis of finger: Code(s): M19.049 - Primary osteoarthritis, unspecified hand Category: Medical Qualifiers: Laterality: unspecified laterality Qualified Code(s): M19.049 - Primary osteoarthritis, unspecified hand Plan: X-rays of the right hand done in October 2021 revealed (+) advanced degenerative changes in the DIP joint of the 2nd digits with exuberant periarticular spurring and mild soft tissue swelling. There are mild degenerative osteoarthritic changes PIP and DIP joints of the 2nd through 5th digits Patient states that her joint pains (in her hands) are mostly manageable - takes OTC Ibuprofen only as needed (12) Hyperuricemia: Code(s): E79.0 - Hyperuricemia without signs of inflammatory arthritis and tophaceous disease Category: Medical Plan: Her serum uric acid level has improved to 6.9 on her recent labs (was previously at 7.9 and 7.2 earlier this year) Patient denies experiencing any acute gout flares/joint pains other than those in her left lower back and hands/fingers, which are not likely due to gout Reinforced low purine diet and will continue to monitor this regularly (13) Lumbar degenerative disc disease: Code(s): M51.369 - Other intervertebral disc degeneration, lumbar region without mention of lumbar back pain or lower extremity pain Category: Medical Qualifiers: Disc-related pain type: discogenic back pain only Qualified Code(s): M51.360 - Other intervertebral disc degeneration, lumbar region with discogenic back pain only Plan: Resolved with no recurrence lately Reinforced activity and weight-lifting restrictions Lumbar spine x-rays done back in 2014 revealed (+) hypertrophic sclerotic facet arthropathy at L5-S1, with mild spondylitic changes with endplate spurring Left hip x-rays done in 2018 came out normal Repeat x-rays of the lumbar spine and left hip as well as left SI joint x-rays done back in May 2023 revealed only (+) mild degenerative changes of L4-S1 with straightening of lumbar lordosis; her hip and SI joint x-rays were normal (14) Glaucoma: Code(s): H40.9 - Unspecified glaucoma Category: Medical Qualifiers: Glaucoma type: unspecified Laterality: unspecified laterality Qualified Code(s): H40.9 - Unspecified glaucoma Plan: Continue Xalatan 0.005% eye drops 1 drop into affected eye once a day in the evening and Timolol 0.5% eyedrops 1 drop into affected eye once a day Follow up with ophthalmology (Dr. Powell) as scheduled Plan Follow up in 4 months Orders: Orders Lipid Panel 4 Months E78.00 - Pure hypercholesterolemia, unspecified Comprehensive [place]. Panel Fast 4 Months E78.00 - Pure hypercholesterolemia, unspecified Hemoglobin A1c 4 Months R73.01 - Impaired fasting glucose Complete Blood Count Auto Diff 4 Months D64.9 - Anemia, unspecified Thyroid Stimulating Hormone 4 Months R79.89 - Other specified abnormal findings of blood chemistry Free T4 (Free Thyroxine) 4 Months R79.89 - Other specified abnormal findings of blood chemistry Uric Acid 4 Months E79.0 - Hyperuricemia without signs of inflammatory arthritis and tophaceous disease
[2024-06-02 10:41] VITALS: BP 130/60; PULSE 76; O2SAT 90; BMI 22.4
== END 2024-06-02 11:16 | disposition home or self-care (01) ==
PROVIDERS: PCP Internal Medicine; Visit Provider Internal Medicine
DX: E78.00 Pure hypercholesterolemia, unspecified (principal); I10 Essential (primary) hypertension; R73.01 Impaired fasting glucose; M81.0 Age-related osteoporosis without current pathological fracture; J30.89 Other allergic rhinitis; B02.29 Other postherpetic nervous system involvement; R42 Dizziness and giddiness; E55.9 Vitamin D deficiency, unspecified; M19.041 Primary osteoarthritis, right hand; E79.0 Hyperuricemia without signs of inflammatory arthritis and tophaceous disease; M51.360 Other intervertebral disc degeneration, lumbar region with discogenic back pain only; H40.9 Unspecified glaucoma

== ENCOUNTER → 2024-06-02 10:33 | Outpatient (BNVA) | payer MEDICARE, MEDICAID, SELFPAY | PROVIDERS: PCP Internal Medicine; Visit Provider Internal Medicine | DX: E78.00 Pure hypercholesterolemia, unspecified (principal); I10 Essential (primary) hypertension; R73.01 Impaired fasting glucose; M81.0 Age-related osteoporosis without current pathological fracture; J30.89 Other allergic rhinitis; B02.29 Other postherpetic nervous system involvement; R42 Dizziness and giddiness; H91.90 Unspecified hearing loss, unspecified ear; E55.9 Vitamin D deficiency, unspecified; M19.049 Primary osteoarthritis, unspecified hand; E79.0 Hyperuricemia without signs of inflammatory arthritis and tophaceous disease; M51.360 Other intervertebral disc degeneration, lumbar region with discogenic back pain only; H40.9 Unspecified glaucoma | CPT/HCPCS: 99212 ==

== ENCOUNTER 2024-10-04 06:09 | Outpatient (REF) | payer MEDICARE, MEDICAID, SELFPAY ==
[2024-10-04 06:37] LABS: MANUAL DIFF FLAG NO
[2024-10-04 07:33] LABS: Basophils Absolute Auto 0.1 X10*3/uL (0.0-0.2); Basophils Percent Auto 1.3 % (0-2); Eosinophils Absolute Auto 0.4 X10*3/uL (0.0-0.4); Eosinophils Percent Auto 5.4 % (0-4); Hemoglobin 12.3 g/dl (12.0-16.0); Imm Gran Abs Auto 0.02 X10*3/uL (0.00-0.03); Imm Gran Pct Auto 0.3 % (0.0-0.4); Lymphocytes Absolute Auto 1.8 X10*3/uL (1.2-4.9); Lymphocytes Percent Auto 26.2 % (20-40); Mean Corpuscular HGB Conc 34.2 g/dl (31.0-35.0); Mean Corpuscular Hemoglobin 30.4 pg (27.0-33.0); Mean Corpuscular Volume 88.9 fL (80.0-98.0); Monocytes Absolute Auto 0.6 X10*3/uL (0.1-1.2); Monocytes Percent Auto 8.9 % (2-11); Neutrophils Absolute Auto 3.9 x10*3/uL (2.0-8.3); Neutrophils Percent Auto 57.9 % (45-73); Platelet Count 279 X10*3/uL (160-400); Red Blood Count 4.05 X10*6/uL (4.20-5.50); Red Cell Distribution Width 12.6 % (11.0-16.0); White Blood Count 6.7 X10*3/uL (4.8-10.8)
[2024-10-04 07:36] LABS: Estimated Average Glucose 126 mg/dL; Hemoglobin A1C 137.4275 umol/L; Total Hemoglobin (HGBA1C) 3298.3225 umol/L
[2024-10-04 07:53] LABS: Appearance Urine Clear; Color Urine Yellow; Glucose Urine UA Negative (Negative); Leukocyte Esterase Urine Small (1+) (Negative); Nitrite Urine Negative (Negative); Specific Gravity - Urine 1.015 (1.005-1.025); UMIC TRIGGER UACC YES; Urine Blood Negative (Negative); Urine Ketones Negative (Negative); Urine Protein Negative (Neg-Trace)
[2024-10-04 08:09] LABS: Alanine Aminotransferase 15 U/L (0-31); Albumin Level 4.2 g/dL (3.5-5.0); Alkaline Phosphatase 73 U/L (39-117); Anion Gap 13 (12-20); Aspartate Amino Transferase 25 U/L (5-31); Bilirubin Total 0.5 mg/dL (0.0-1.0); Blood Urea Nitrogen 29 mg/dL (9-16); Calcium 9.4 mg/dL (8.4-10.2); Carbon Dioxide 27 mmol/L (22-29); Chloride 103 mmol/L (96-108); Cholesterol 174 mg/dL (<200); Estimated Glomerular Filt Rate > 60; Glucose Fasting 97 mg/dL (60-99); HDL Cholesterol 61 mg/dL (>40); LDL Cholesterol Calculated 86 mg/dL (<100); Potassium 3.9 mmol/L (3.3-5.1); Sodium 139 mmol/L (135-145); Total Protein 7.1 g/dL (6.5-8.0); Triglycerides 137 mg/dL (<150); Uric Acid 7.3 mg/dL (2.4-5.7)
[2024-10-04 08:11] LABS: Bacteria Urine 2+ (None Seen); Hyaline Casts Urine 0-2 /LPF (0-2); RBC Urine 0-2 /HPF (0-2); UACC Culture Trigger YES; WBC Urine 0-5 /HPF (0-5)
[2024-10-04 08:25] LABS: Free T4 (Free Thyroxine) 0.93 ng/dL (0.71-1.85)
== END 2024-10-04 06:10 | disposition home or self-care (01) ==
LOC: HO.LAB 06:09
PROVIDERS: PCP Internal Medicine; Visit Provider Internal Medicine
DX: R30.0 Dysuria (principal); E78.00 Pure hypercholesterolemia, unspecified; R73.01 Impaired fasting glucose; D64.9 Anemia, unspecified
CPT/HCPCS: 36415; 80053; 80061; 81001; 83036; 84439; 84443; 84550; 85025; 87086

== ENCOUNTER 2024-10-09 09:44 | Outpatient (AMB) | payer MEDICARE, MEDICAID, SELFPAY ==
[2024-10-09 09:52] VITALS: BP 140/80; PULSE 78; O2SAT 97; BMI 21.9
--- NOTE | 2024-10-09 09:52 | A.OFFPC_ITS ---
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 Accompanied by: Self / Same As Patient Allergies No Known Allergies [No Known Allergies*] Allergy (Verified 10/09/24 10:12) Medication List - Last Reconciled 10/09/24 by Jean Marie Lindsay MD atorvastatin 20 mg PO DAILY cholecalciferol (vitamin D3) 50 mcg PO DAILY 90 days famotidine 40 mg PO BEDTIME fluticasone propionate 50 mcg/actuation 2 sprays intranasal DAILY PRN 30 days hydrochlorothiazide 25 mg PO QAM latanoprost 0.005% 1 drp ophthalmic (eye) BEDTIME loratadine 10 mg PO DAILY PRN ropinirole 0.25 mg PO BEDTIME 30 days timolol maleate 0.5% 0 drps ophthalmic (eye) valsartan 160 mg PO DAILY 90 days Tobacco use date assessed: 10/09/24 Fall risk assessment: No Falls in past year Last assessed Fall Risk: 10/09/24 Dental Screening Dental Screen Date: 10/09/24 Did you have a dental visit in the last 12 months?: No Did you have a dental problem in the last 6 months where you did not have access to dental care?: No Was dental information given to patient?: Patient has [facility] HPI Details Patient comes in today for her follow up visit States that she feels okay She denies any headaches; states that she still has occasional brief dizzy sp ells but they are not occurring as often as they did before She was reportedly seen by ENT in [place] but recalls that they advised her that they could not find anything wrong and was unable to tell her what is exactly triggering her on and off dizziness Denies any chest pains, no increased SOB No nausea/vomiting, no abdominal pain No change in bowel habits noted She had her follow up labs done last week - to discuss her results [facility] Medical History Lumbar degenerative disc disease IFG (impaired fasting glucose) Medicare annual wellness visit, initial Elevated TSH Vitamin D deficiency Allergic rhinitis Glaucoma Osteoporosis Impaired fasting glucose Benign essential hypertension Pure hypercholesterolemia Surgical History Hx of colonoscopy (~09/22/16) History of biopsy History of hard lump in extremity History of breast biopsy History of foot surgery History of tubal ligation Family History Father No problems noted. Mother Breast cancer Sister Breast cancer Sister Uterine cancer Brother DVT (deep venous thrombosis) Social History Housing: House Alcohol intake: current Alcohol intake frequency: a few times a month Alcohol type: wine Patient Tobacco Use Status: Former Tobacco user e-Cigarette/Vaping Use: Never Used Second Hand Smoke Exposure: Yes service: No Current occupational status: retired Cognitive needs: No Hearing needs: No Vision needs: Yes (glasses) Questionnaire PHQ-9 Over the last 2 weeks, how often have you been bothered by any of the following problems? 1. Little interest or pleasure in doing things: not at all 2. Feeling down, depressed, or hopeless: not at all 3. Trouble falling or staying asleep, or sleeping too much: not at all 4. Feeling tired or having little energy: not at all 5. Poor appetite or overeating: not at all 6. Feeling bad about yourself - or that you are a failure or have let yourself or your family down: not at all 7. Trouble concentrating on things, such as reading the newspaper or watching television: not at all 8. Moving or speaking so slowly that other people could have noticed. Or the opposite - being so fidgety or restless that you have been moving around a lot more than usual: not at all 9. Thoughts that you would be better off or of hurting yourself in some way: not at all Total score: 0 Depression Screening Interpretation: Negative Depression Screening Done: Yes 73163 - PHQ-9 Billing: Yes Source: Developed by Drs. Louis House, Supriya Dang, Severo Cid and colleagues, with an educational justine from [employer]. Thrive Questionnaire Date Thrive assessed: 10/09/24 I am a: Patient What is your living situation today?: I have a steady place to live Within the past 12 months, did the food you bought not last and you didn't have the money to get more?: Never true Within the past 12 months, did you worry whether your food would run out before you got money to buy more?: Never true Do you have trouble paying for medicines?: No Do you have trouble getting transportation to medical appointments?: No Do you have trouble paying your heating and electricity bill?: No Do you have trouble taking care of your child, family member or friend?: No Do you have trouble with day-to-day activities such as bathing, preparing meals, shopping, managing finances, etc.?: No Are you currently unemployed and looking for a job?: No Are you interested in more education?: No Please select the resources that you would like help with: None Currently or been in a relationship where the following occur: No concerns reported THRIVE Score: 0 AUDIT C Alcohol Use Questionnaire (AUDIT-C) 1. How often do you have a drink containing alcohol?: Monthly or less 2. How many drinks containing alcohol do you have on a typical day when you are drinking?: 1 or 2 3. How often do you have six or more drinks on one occasion?: Never Total Score: 1 Score Reviewed/Action Taken: Yes LAITH-7 AMB Questionnaire LAITH-7 Date LAITH - 7 assessed: 10/09/24 Feeling nervous, anxious, or on edge: 0 = Not at all Not being able to stop or control worryin = Not at all Worrying too much about different things: 0 = Not at all Trouble relaxin = Not at all Being so restless that it is hard to sit still: 0 = Not at all Becoming easily annoyed or irritable: 0 = Not at all Feeling afraid as if something awful might happen: 0 = Not at all Total LAITH-7 score (0-4 normal; 5-9 mild; 10-14 moderate; 15-21 severe): 0 Source: Developed by Drs. Louis House, Supriya Dang, Severo Cid and colleagues, with an educational justine from [employer]. Review of Systems Const Denies chills, Denies fatigue, Denies fever(s) and Denies headache(s) ENT Denies dysphagia, Reports dizziness (occasionally - states that these have not been occurring as often as before), Denies otalgia, Denies headache(s), Reports hearing loss, Denies neck pain, Denies odynophagia and Denies sore throat Card Denies chest pain, Denies rapid heart rate, Denies palpitations and Denies dyspnea Resp Denies chest congestion, Denies cough and Denies dyspnea GI Denies abdominal pain, Denies constipation, Denies dysphagia, Denies heartburn, Denies diarrhea, Denies nausea, Denies odynophagia and Denies vomiting Denies difficulty voiding, Denies nocturia, Denies dysuria and Denies urinary urgency Musc Reports back pain (on and off, over the right lower back), Denies arthralgias, Denies neck pain and Reports numbness (on and off in the toes - worse at night) Skin/Breast Denies rash Neuro Details: (+) on and off cramping pain in legs, worse at night Reports dizziness (occasionally - states that these have not been occurring as often as before), Denies headache(s) and Reports numbness (on and off in the toes - worse at night) Endo Denies fatigue and Denies palpitations Physical exam (Primary Care) Vital Signs: Last Vital Signs Pulse 78 10/09/24 09:52 BP 140/80 H 10/09/24 09:52 Pulse Ox 97 10/09/24 09:52 Oxygen Delivery Method Room Air 10/09/24 09:52 BMI result Body Mass Index 21.9 Tobacco/Smoking Status: Tobacco use Status Tobacco use date assessed 10/09/24 10/09/24 09:57 Patient Tobacco Use Status Former Tobacco user 10/09/24 09:57 e-Cigarette/Vaping Use Never Used 10/09/24 09:57 PHQ-9: PHQ-9 Score PHQ-9: Total score 0 10/09/24 09:57 Depression Screening Interpretation: Negative Thrive Assessment: Date of Thrive Assessment Date Thrive assessed 10/09/24 10/09/24 09:57 Currently or been in a relationship where the following occur: No concerns reported Const General: no acute distress and alert HENMT Ears: TM's normal bilaterally and EAC's normal Throat: Yes posterior oropharynx normal and Yes tonsils normal (no TP congestion noted) Neck Neck: Yes supple and No lymphadenopathy Thyroid: Thyroid normal Resp Auscultation: clear to auscultation bilaterally, no rales and no wheezes Cardio Rate: regular rate Rhythm: regular rhythm Heart sounds: no murmurs GI Palpation (GI): Soft to palpation and nontender Auscultation: normal bowel sounds General: Yes no CVA tenderness Back/Spine/Pelvis Back: no CVA tenderness Thoracic/Lumbar Spine: lumbar spinal tenderness (mild) Skin Rashes: no rashes Extrem General: Yes no clubbing, cyanosis or edema Results Reviewed Results Reviewed: Laboratory Tests 10/04/24 10/04/24 06:31 06:35 WBC 6.7 Hgb 12.3 Hct 36.0 L Plt Count 279 Sodium 139 Potassium 3.9 Creatinine 0.88 Estimated GFR > 60 Fasting Glucose 97 Hemoglobin A1c % 6.0 Uric Acid 7.3 H Calcium 9.4 AST 25 ALT 15 Triglycerides 137 Cholesterol 174 LDL Cholesterol, Calc 86 HDL Cholesterol 61 TSH 5.40 H Free T4 0.93 Ur Specific [place] 1.015 Urine Protein Negative Urine Glucose (UA) Negative Urine Blood Negative Urine Nitrite Negative Ur Leukocyte Esterase Small (1+) H Coding Level of Care Code Est Pt Level 4 (61808) Complex EM visit Add On G2211 Diagnoses Pure hypercholesterolemia E78.00 Benign essential hypertension I10 Impaired fasting glucose R73.01 Age-related osteoporosis without current pathological fracture M81.0 Osteoporosis type: age-related Presence of current pathological fracture: without current pathological fracture Non-seasonal allergic rhinitis, unspecified trigger J30.89 Allergic rhinitis trigger: unspecified Allergic rhinitis seasonality: non-seasonal Postherpetic neuralgia B02.29 Elevated TSH R79.89 Vitamin D deficiency E55.9 Osteoarthritis of finger, 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 Laterality: unspecified laterality Hyperuricemia E79.0 Degeneration of intervertebral disc of lumbar region with discogenic back pain M51.360 Disc-related pain type: discogenic back pain only Dizziness R42 Hearing loss, unspecified hearing loss type, unspecified laterality H91.90 Hearing loss type: unspecified Laterality: unspecified laterality Glaucoma, unspecified glaucoma type, unspecified laterality H40.9 Glaucoma type: unspecified Laterality: unspecified laterality Additional Codes PHQ-9 - 75022 - PHQ-9 Billing: Yes ([id number]) Assessment & Plan Assessment & Plan (1) Pure hypercholesterolemia: Code(s): E78.00 - Pure hypercholesterolemia, unspecified Category: Medical Plan: Results of her labs done last week reviewed and discussed with patient Reinforced low cholesterol diet Continue Atorvastatin 20 mg QD Will recheck her labs and fasting lipids in 4 months for follow up (2) Benign essential hypertension: Code(s): I10 - Essential (primary) hypertension Category: Medical Plan: Reinforced low sodium diet - goal is systolic BP of 130 to 140 mm or less Continue Valsartan 160 mg QD and HCTZ 25 mg QD Patient is reminded to continue monitoring her blood pressure regularly (3) Impaired fasting glucose: Code(s): R73.01 - Impaired fasting glucose Category: Medical Plan: Her HgbA1c was at 6.0% on her labs done last week - was previously at 6.1% a few months ago Reinforced low calorie/low carb diet/exercise as tolerated (4) Osteoporosis: Comment: BMD done in 2018 showed (+) osteoporosis - was started by previous PCP (Dr. Shearer) on Alendronate Rx in 2018 Code(s): M81.0 - Age-related osteoporosis without current pathological fracture Category: Medical Qualifiers: Osteoporosis type: age-related Presence of current pathological fracture: without current pathological fracture Qualified Code(s): M81.0 - Age- related osteoporosis without current pathological fracture Plan: Patient is S/P Tx with Alendronate x 5 years - Tx was started sometime in 2017 and completed at the end of 2022 Her repeat BMD done on 05/05/2024 revealed (+) improvement from previous and she is now in the osteopenic range, based on the lowest T-score value of -1.5 in the lumbar spine Patient is encouraged again to continue to stay active and exercise regularly and to continue on oral Calcium and Vitamin D supplements daily Will continue to monitor her BMD every 2 to 3 years (5) Allergic rhinitis: Code(s): J30.9 - Allergic rhinitis, unspecified Category: Medical Qualifiers: Allergic rhinitis trigger: unspecified Allergic rhinitis seasonality: non-seasonal Qualified Code(s): J30.89 - Other allergic rhinitis Plan: Continue Loratadine 10 mg QD PRN and Fluticasone 50 mcg nasal spray QD PRN (6) Postherpetic neuralgia: Comment: S/P shingles in late April 2021 Code(s): B02.29 - Other postherpetic nervous system involvement Category: Medical Plan: S/P shingles in late April 2021; symptoms have improved a lot since Continue Gabapentin 100 mg TID (7) Elevated TSH: Code(s): R79.89 - Other specified abnormal findings of blood chemistry Category: Medical Plan: Her TSH is still slightly elevated but free T4 remains normal on her recent labs Patient remains clinically euthyroid - will continue to monitor her TFTs regularly (8) Vitamin D deficiency: Code(s): E55.9 - Vitamin D deficiency, unspecified Category: Medical Plan: Continue Vitamin D3 2000 units QD (9) Osteoarthritis of finger: Code(s): M19.049 - Primary osteoarthritis, unspecified hand Category: Medical Qualifiers: Laterality: unspecified laterality Qualified Code(s): M19.049 - Primary osteoarthritis, unspecified hand Plan: X-rays of the right hand done in October 2021 revealed (+) advanced degenerative changes in the DIP joint of the 2nd digits with exuberant periarticular spurring and mild soft tissue swelling. There are mild degenerative osteoarthritic changes PIP and DIP joints of the 2nd through 5th digits Patient states that her joint pains (in her hands) have been mostly manageable and she takes OTC Ibuprofen only as needed (10) Hyperuricemia: Code(s): E79.0 - Hyperuricemia without signs of inflammatory arthritis and tophaceous disease Category: Medical Plan: Her serum uric acid level is again up slightly at 7.3 (was previously at 6.9 a few months ago) Patient denies experiencing any acute gout flares/joint pains other than those in her left lower back and hands/fingers, which are not likely due to gout Reinforced low purine diet Will continue to monitor her serum uric acid level regularly (11) Lumbar degenerative disc disease: Code(s): M51.369 - Other intervertebral disc degeneration, lumbar region without mention of lumbar back pain or lower extremity pain Category: Medical Qualifiers: Disc-related pain type: discogenic back pain only Qualified Code(s): M51.360 - Other intervertebral disc degeneration, lumbar region with discogenic back pain only Plan: Resolved with no recurrence lately Reinforced activity and weight-lifting restrictions Lumbar spine x-rays done back in 2014 revealed (+) hypertrophic sclerotic facet arthropathy at L5-S1, with mild spondylitic changes with endplate spurring Left hip x-rays done in 2019 came out normal Repeat x-rays of the lumbar spine and left hip as well as left SI joint x-rays done back in May 2023 revealed only (+) mild degenerative changes of L4-S1 with straightening of lumbar lordosis; her hip and SI joint x-rays were normal (12) Dizziness: Code(s): R42 - Dizziness and giddiness Category: Medical Plan: Patient states that she still has occasional bouts of dizziness but they are not occurring as often as they used to She was seen by ENT in [place] for further evaluation but states that she was advised that they have not been able to identify what is causing her recurrent symptoms We have not received any reports from ENT so far and will have office request for a copy of her OV notes sent over for review (13) Hearing loss: Code(s): H91.90 - Unspecified hearing loss, unspecified ear Category: Medical Qualifiers: Hearing loss type: unspecified Laterality: unspecified laterality Qualified Code(s): H91.90 - Unspecified hearing loss, unspecified ear Plan: Patient states that she failed her hearing test and was advised to wear hearing aids but she asked to hold off on this as she is concerned about cost and also that she will just end up misplacing her hearing aids (14) Glaucoma: Code(s): H40.9 - Unspecified glaucoma Category: Medical Qualifiers: Glaucoma type: unspecified Laterality: unspecified laterality Qualified Code(s): H40.9 - Unspecified glaucoma Plan: Continue Xalatan 0.005% eye drops 1 drop into affected eye once a day in the evening and Timolol 0.5% eyedrops 1 drop into affected eye once a day Follow up with ophthalmology (Dr. Powell) as scheduled Plan Follow up in 4 months Orders: Orders Free T4 (Free Thyroxine) 4 Months R79.89 - Other specified abnormal findings of blood chemistry Uric Acid 4 Months E79.0 - Hyperuricemia without signs of inflammatory arthritis and tophaceous disease Complete Blood Count Auto Diff 4 Months D64.9 - Anemia, unspecified Lipid Panel 4 Months E78.00 - Pure hypercholesterolemia, unspecified Comprehensive [place]. Panel Fast 4 Months E78.00 - Pure hypercholesterolemia, unspecified Thyroid Stimulating Hormone 4 Months R79.89 - Other specified abnormal findings of blood chemistry Hemoglobin A1c 4 Months R73.01 - Impaired fasting glucose UA CC w/rflx Micro + Cult 4 Months R30.0 - Dysuria Vitamin D 25-OH Total 4 Months E55.9 - Vitamin D deficiency, unspecified Vitamin B12 and Folate 4 Months E53.8 - Deficiency of other specified B group vitamins
[2024-10-09 10:27] VITALS: BP 128/70
== END 2024-10-09 10:31 | disposition home or self-care (01) ==
LOC: HO.HMCH 09:44
PROVIDERS: PCP Internal Medicine; Visit Provider Internal Medicine
DX: E78.00 Pure hypercholesterolemia, unspecified (principal); I10 Essential (primary) hypertension; R73.01 Impaired fasting glucose; M81.0 Age-related osteoporosis without current pathological fracture; J30.89 Other allergic rhinitis; B02.29 Other postherpetic nervous system involvement; R79.89 Other specified abnormal findings of blood chemistry; E55.9 Vitamin D deficiency, unspecified; M19.049 Primary osteoarthritis, unspecified hand; E79.0 Hyperuricemia without signs of inflammatory arthritis and tophaceous disease; M51.360 Other intervertebral disc degeneration, lumbar region with discogenic back pain only; R42 Dizziness and giddiness

== ENCOUNTER → 2024-10-09 09:44 | Outpatient (BNVA) | payer MEDICARE, MEDICAID, SELFPAY | PROVIDERS: PCP Internal Medicine; Visit Provider Internal Medicine | DX: E78.00 Pure hypercholesterolemia, unspecified (principal); I10 Essential (primary) hypertension; R73.01 Impaired fasting glucose; M81.0 Age-related osteoporosis without current pathological fracture; J30.89 Other allergic rhinitis; B02.29 Other postherpetic nervous system involvement; E55.9 Vitamin D deficiency, unspecified; M19.049 Primary osteoarthritis, unspecified hand; E79.0 Hyperuricemia without signs of inflammatory arthritis and tophaceous disease; M51.360 Other intervertebral disc degeneration, lumbar region with discogenic back pain only; R42 Dizziness and giddiness; H91.90 Unspecified hearing loss, unspecified ear; H40.9 Unspecified glaucoma; D64.9 Anemia, unspecified; R30.0 Dysuria; E53.8 Deficiency of other specified B group vitamins | CPT/HCPCS: 96127; 99212 ==

== ENCOUNTER 2025-02-07 06:02 | Outpatient (REF) | payer MEDICARE, MEDICAID, SELFPAY ==
[2025-02-07 06:28] LABS: MANUAL DIFF FLAG NO
[2025-02-07 07:48] LABS: Hemoglobin A1C 140.6454 umol/L; Total Hemoglobin (HGBA1C) 3273.6635 umol/L
[2025-02-07 07:50] LABS: Hematocrit 36.3 % (37.0-47.0); Hemoglobin 12.1 g/dl (12.0-16.0); Imm Gran Abs Auto 0.01 X10*3/uL (0.00-0.03); Imm Gran Pct Auto 0.2 % (0.0-0.4); Lymphocytes Absolute Auto 1.7 X10*3/uL (1.2-4.9); Mean Corpuscular HGB Conc 33.3 g/dl (31.0-35.0); Mean Corpuscular Hemoglobin 29.7 pg (27.0-33.0); Mean Corpuscular Volume 89.0 fL (80.0-98.0); NRBC Abs Auto 0.000 X10*3/uL (0.0-0.012); NRBC Pct Auto 0.0 /100WBC (0.0-0.2); Platelet Count 305 X10*3/uL (160-400); Red Blood Count 4.08 X10*6/uL (4.20-5.50); White Blood Count 6.5 X10*3/uL (4.8-10.8)
[2025-02-07 08:06] LABS: Appearance Urine Clear; Glucose Urine UA Negative (Negative); PH 5.5 (5.0-9.0); Specific Gravity - Urine 1.020 (1.005-1.025); UMIC TRIGGER UACC YES
[2025-02-07 08:12] LABS: UACC Culture Trigger YES
[2025-02-07 08:44] LABS: Folate 14.5 ng/mL (> or = 4.0); Vitamin B12 388 pg/mL (200-900)
[2025-02-07 08:52] LABS: Alanine Aminotransferase 19 U/L (0-31); Albumin Level 4.6 g/dL (3.5-5.0); Alkaline Phosphatase 75 U/L (39-117); Anion Gap 13 (12-20); Aspartate Amino Transferase 22 U/L (5-31); Blood Urea Nitrogen 29 mg/dL (9-16); Calcium 9.6 mg/dL (8.4-10.2); Carbon Dioxide 29 mmol/L (22-29); Chloride 103 mmol/L (96-108); Cholesterol 174 mg/dL (<200); Estimated Glomerular Filt Rate 56; Free T4 (Free Thyroxine) 1.00 ng/dL (0.71-1.85); HDL Cholesterol 50 mg/dL (>40); Potassium 3.7 mmol/L (3.3-5.1); Sodium 141 mmol/L (135-145); Thyroid Stimulating Hormone 6.41 uIU/mL (0.32-4.0); Total Protein 7.3 g/dL (6.5-8.0); Triglycerides 140 mg/dL (<150)
[2025-02-07 10:56] LABS: Uric Acid 7.9 mg/dL (2.4-5.7)
== END 2025-02-07 06:03 | disposition home or self-care (01) ==
LOC: HO.LAB 06:02
PROVIDERS: PCP Internal Medicine; Visit Provider Internal Medicine
DX: R30.0 Dysuria (principal); R73.01 Impaired fasting glucose; D64.9 Anemia, unspecified; E79.0 Hyperuricemia without signs of inflammatory arthritis and tophaceous disease; E55.9 Vitamin D deficiency, unspecified; E53.8 Deficiency of other specified B group vitamins; E78.00 Pure hypercholesterolemia, unspecified
CPT/HCPCS: 36415; 80053; 80061; 81001; 81003; 82306; 82607; 82746; 83036; 84439; 84443; 84550; 85025; 87086

== ENCOUNTER 2025-02-13 09:43 | Outpatient (AMB) | payer MEDICARE, MEDICAID, SELFPAY ==
[2025-02-13 09:48] VITALS: BP 120/60; PULSE 71; TEMP 36.2; O2SAT 97; BMI 21.9
--- NOTE | 2025-02-13 09:48 | A.OFFPC_ITS ---
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 Workroom Required: No Accompanied by: Self / Same As Patient Allergies No Known Allergies (No Known Allergies*) Allergy (Verified 02/13/25 10:05) Medication List - Last Reconciled 02/13/25 by Jean Marie Lindsay MD atorvastatin 20 mg PO DAILY cholecalciferol (vitamin D3) 50 mcg PO DAILY 90 days famotidine 40 mg PO BEDTIME fluticasone propionate 50 mcg/actuation 2 sprays intranasal DAILY PRN 30 days hydrochlorothiazide 25 mg PO QAM latanoprost 0.005% 1 drp ophthalmic (eye) BEDTIME loratadine 10 mg PO DAILY PRN ropinirole 0.25 mg PO BEDTIME 30 days timolol maleate 0.5% 0 drps ophthalmic (eye) valsartan 160 mg PO DAILY 90 days Tobacco use date assessed: 02/13/25 Fall risk assessment: No Falls in past year Last assessed Fall Risk: 02/13/25 Dental Screening Dental Screen Date: 02/13/25 Did you have a dental visit in the last 12 months?: No Did you have a dental problem in the last 6 months where you did not have access to dental care?: No Was dental information given to patient?: Patient has dentist HPI HTN, hyperlipidemia, IFG, osteoporosis, OA HPI Details Patient comes in today for her follow up visit States that she feels okay She denies any headaches; denies any frequent/recurrent dizziness lately Denies any chest pains, no increased SOB No nausea/vomiting, no abdominal pain No change in bowel habits noted She had her follow up labs donea few days ago - to discuss her results [facility] Medical History Lumbar degenerative disc disease IFG (impaired fasting glucose) Medicare annual wellness visit, initial Elevated TSH Vitamin D deficiency Allergic rhinitis Glaucoma Osteoporosis Impaired fasting glucose Benign essential hypertension Pure hypercholesterolemia Surgical History Hx of colonoscopy (~09/22/16) History of biopsy History of hard lump in extremity History of breast biopsy History of foot surgery History of tubal ligation Family History Father No problems noted. Mother Breast cancer Sister Breast cancer Sister Uterine cancer Brother DVT (deep venous thrombosis) Social History Housing: House Alcohol intake: current Alcohol intake frequency: a few times a month Alcohol type: wine Patient Tobacco Use Status: Former Tobacco user e-Cigarette/Vaping Use: Never Used Second Hand Smoke Exposure: Yes service: No Current occupational status: retired Cognitive needs: No Hearing needs: No Vision needs: Yes (glasses) Questionnaire PHQ-9 Over the last 2 weeks, how often have you been bothered by any of the following problems? 1. Little interest or pleasure in doing things: not at all 2. Feeling down, depressed, or hopeless: not at all 3. Trouble falling or staying asleep, or sleeping too much: not at all 4. Feeling tired or having little energy: not at all 5. Poor appetite or overeating: not at all 6. Feeling bad about yourself - or that you are a failure or have let yourself or your family down: not at all 7. Trouble concentrating on things, such as reading the newspaper or watching television: not at all 8. Moving or speaking so slowly that other people could have noticed. Or the opposite - being so fidgety or restless that you have been moving around a lot more than usual: not at all 9. Thoughts that you would be better off or of hurting yourself in some way: not at all Total score: 0 Depression Screening Interpretation: Negative Depression Screening Done: Yes 51092 - PHQ-9 Billing: Yes Source: Developed by Drs. Louis House, Supriya Dang, Severo Cid and colleagues, with an educational justine from [employer]. Thrive Questionnaire Date Thrive assessed: 02/13/25 I am a: Patient What is your living situation today?: I have a steady place to live Within the past 12 months, did the food you bought not last and you didn't have the money to get more?: Never true Within the past 12 months, did you worry whether your food would run out before you got money to buy more?: Never true Do you have trouble paying for medicines?: No Do you have trouble getting transportation to medical appointments?: No Do you have trouble paying your heating and electricity bill?: No Do you have trouble taking care of your child, family member or friend?: No Do you have trouble with day-to-day activities such as bathing, preparing meals, shopping, managing finances, etc.?: No Are you currently unemployed and looking for a job?: Yes Are you interested in more education?: No Please select the resources that you would like help with: None Currently or been in a relationship where the following occur: No concerns reported THRIVE Score: 0 AUDIT C Alcohol Use Questionnaire (AUDIT-C) 1. How often do you have a drink containing alcohol?: Monthly or less 2. How many drinks containing alcohol do you have on a typical day when you are drinking?: 1 or 2 Total Score: 1 Score Reviewed/Action Taken: Yes LAITH-7 AMB Questionnaire LAITH-7 Date LAITH - 7 assessed: 02/13/25 Feeling nervous, anxious, or on edge: 0 = Not at all Not being able to stop or control worryin = Not at all Worrying too much about different things: 0 = Not at all Trouble relaxin = Not at all Being so restless that it is hard to sit still: 0 = Not at all Becoming easily annoyed or irritable: 0 = Not at all Feeling afraid as if something awful might happen: 0 = Not at all Total LAITH-7 score (0-4 normal; 5-9 mild; 10-14 moderate; 15-21 severe): 0 Source: Developed by Drs. Louis House, Supriya Dang, Severo Cid and colleagues, with an educational justine from [employer]. Review of Systems Const Denies chills, Denies fatigue, Denies fever(s) and Denies headache(s) ENT Denies dysphagia, Reports dizziness (occasionally - states that these occur rarely nowadays), Denies otalgia, Denies headache(s), Reports hearing loss, Denies neck pain, Denies odynophagia and Denies sore throat Card Denies chest pain, Denies rapid heart rate, Denies palpitations and Denies dyspnea Resp Denies chest congestion, Denies cough and Denies dyspnea GI Denies abdominal pain, Denies constipation, Denies dysphagia, Denies heartburn, Denies diarrhea, Denies nausea, Denies odynophagia and Denies vomiting Denies difficulty voiding, Denies nocturia, Denies dysuria and Denies urinary urgency Musc Reports back pain (on and off, over the right lower back), Denies arthralgias, Denies neck pain and Reports numbness (on and off in the toes - worse at night) Skin/Breast Denies rash Neuro Details: (+) on and off cramping pain in legs, worse at night Reports dizziness (occasionally - states that these occur rarely nowadays), Denies headache(s) and Reports numbness (on and off in the toes - worse at night) Endo Denies fatigue and Denies palpitations Physical exam (Primary Care) Vital Signs: Oxygen Delivery Method Room Air 02/13/25 09:48 Tobacco/Smoking Status: Tobacco use Status Tobacco use date assessed 10/09/24 02/13/25 09:49 Patient Tobacco Use Status Former Tobacco user 02/13/25 09:49 e-Cigarette/Vaping Use Never Used 02/13/25 09:49 PHQ-9: PHQ-9 Score PHQ-9: Total score 0 02/13/25 09:49 Depression Screening Interpretation: Negative Thrive Assessment: Date of Thrive Assessment Date Thrive assessed 02/08/25 02/13/25 09:49 Currently or been in a relationship where the following occur: No concerns reported Const General: no acute distress and alert HENMT Ears: TM's normal bilaterally and EAC's normal Throat: Yes posterior oropharynx normal and Yes tonsils normal (no TP congestion noted) Neck Neck: Yes supple and No lymphadenopathy Thyroid: Thyroid normal Resp Auscultation: clear to auscultation bilaterally, no rales and no wheezes Cardio Rate: regular rate Rhythm: regular rhythm Heart sounds: no murmurs GI Palpation (GI): Soft to palpation and nontender Auscultation: normal bowel sounds General: Yes no CVA tenderness Back/Spine/Pelvis Back: no CVA tenderness Thoracic/Lumbar Spine: lumbar spinal tenderness (mild) Skin Rashes: no rashes Extrem General: Yes no clubbing, cyanosis or edema Results Reviewed Results Reviewed: Laboratory Tests 02/07/25 02/07/25 06:22 06:26 WBC 6.5 Hgb 12.1 Hct 36.3 L Plt Count 305 Sodium 141 Potassium 3.7 Creatinine 0.97 Estimated GFR 56 Fasting Glucose 101 H Hemoglobin A1c % 6.1 H Uric Acid 7.9 H Calcium 9.6 AST 22 ALT 19 Triglycerides 140 Cholesterol 174 LDL Cholesterol, Calc 96 HDL Cholesterol 50 Vitamin B12 388 25-OH Vitamin D Total 35.2 TSH 6.41 H Free T4 1.00 Ur Specific [place] 1.020 Urine Protein Negative Urine Glucose (UA) Negative Urine Blood Negative Urine Nitrite Negative Ur Leukocyte Esterase Moderate (2+) H Coding Level of Care Code Est Pt Level 4 (37765) Diagnoses Pure hypercholesterolemia E78.00 Benign essential hypertension I10 Impaired fasting glucose R73.01 Age-related osteoporosis without current pathological fracture M81.0 Osteoporosis type: age-related Presence of current pathological fracture: without current pathological fracture Non-seasonal allergic rhinitis, unspecified trigger J30.89 Allergic rhinitis trigger: unspecified Allergic rhinitis seasonality: non-seasonal Postherpetic neuralgia B02.29 Elevated TSH R79.89 Vitamin D deficiency E55.9 Osteoarthritis of finger, 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 Laterality: unspecified laterality Hyperuricemia E79.0 Degeneration of intervertebral disc of lumbar region with discogenic back pain M51.360 Disc-related pain type: discogenic back pain only Dizziness R42 Hearing loss, unspecified hearing loss type, unspecified laterality H91.90 Hearing loss type: unspecified Laterality: unspecified laterality Glaucoma, unspecified glaucoma type, unspecified laterality H40.9 Glaucoma type: unspecified Laterality: unspecified laterality Additional Codes PHQ-9 - 30862 - PHQ-9 Billing: Yes ([id number]) Assessment & Plan Assessment & Plan (1) Pure hypercholesterolemia: Code(s): E78.00 - Pure hypercholesterolemia, unspecified Category: Medical Plan: Results of her labs done a few days ago reviewed and discussed with patient Reinforced low cholesterol diet Continue Atorvastatin 20 mg QD Will recheck her labs and fasting lipids in 4 months for follow up (2) Benign essential hypertension: Code(s): I10 - Essential (primary) hypertension Category: Medical Plan: Reinforced low sodium diet - goal is systolic BP of 130 to 140 mm or less Continue Valsartan 160 mg QD and HCTZ 25 mg QD Patient is reminded to continue monitoring her blood pressure regularly (3) Impaired fasting glucose: Code(s): R73.01 - Impaired fasting glucose Category: Medical Plan: Her HgbA1c was at 6.1% on her labs done a few days ago - was previously at 6.0% a few months ago Reinforced low calorie/low carb diet/exercise as tolerated (4) Osteoporosis: Comment: BMD done in 2018 showed (+) osteoporosis - was started by previous PCP (Dr. Shearer) on Alendronate Rx in 2018 Code(s): M81.0 - Age-related osteoporosis without current pathological fracture Category: Medical Qualifiers: Osteoporosis type: age-related Presence of current pathological fracture: without current pathological fracture Qualified Code(s): M81.0 - Age- related osteoporosis without current pathological fracture Plan: Patient is S/P Tx with Alendronate x 5 years - Tx was started sometime in 2017 and completed at the end of 2022 Her repeat BMD done on 05/05/2024 revealed (+) improvement from previous and she is now in the osteopenic range, based on the lowest T-score value of -1.5 in the lumbar spine Patient is encouraged again to continue to stay active and exercise regularly and to continue on oral Calcium and Vitamin D supplements daily Will continue to monitor her BMD every 2 to 3 years (5) Allergic rhinitis: Code(s): J30.9 - Allergic rhinitis, unspecified Category: Medical Qualifiers: Allergic rhinitis trigger: unspecified Allergic rhinitis seasonality: non-seasonal Qualified Code(s): J30.89 - Other allergic rhinitis Plan: Continue Loratadine 10 mg QD PRN and Fluticasone 50 mcg nasal spray QD PRN (6) Postherpetic neuralgia: Comment: S/P shingles in late April 2021 Code(s): B02.29 - Other postherpetic nervous system involvement Category: Medical Plan: S/P shingles in late April 2021; symptoms have improved a lot since Continue Gabapentin 100 mg TID (7) Elevated TSH: Code(s): R79.89 - Other specified abnormal findings of blood chemistry Category: Medical Plan: Her TSH is still slightly elevated but free T4 remains normal on her recent labs Patient remains clinically euthyroid - will continue to monitor her TFTs regularly (8) Vitamin D deficiency: Code(s): E55.9 - Vitamin D deficiency, unspecified Category: Medical Plan: Continue Vitamin D3 2000 units QD (9) Osteoarthritis of finger: Code(s): M19.049 - Primary osteoarthritis, unspecified hand Category: Medical Qualifiers: Laterality: unspecified laterality Qualified Code(s): M19.049 - Primary osteoarthritis, unspecified hand Plan: X-rays of the right hand done in October 2021 revealed (+) advanced degenerative changes in the DIP joint of the 2nd digits with exuberant periarticular spurring and mild soft tissue swelling. There are mild degenerative osteoarthritic changes PIP and DIP joints of the 2nd through 5th digits Patient states that her joint pains (in her hands) have been mostly manageable and she takes OTC Ibuprofen only as needed (10) Hyperuricemia: Code(s): E79.0 - Hyperuricemia without signs of inflammatory arthritis and tophaceous disease Category: Medical Plan: Her serum uric acid level has increased slightly to 7.9 on her recent labs (was previously at 7.3 a few months ago) Patient denies experiencing any acute gout flares/joint pains other than those in her left lower back and hands/fingers, which are not likely due to gout Reinforced low purine diet Will continue to monitor her serum uric acid level regularly (11) Lumbar degenerative disc disease: Code(s): M51.369 - Other intervertebral disc degeneration, lumbar region without mention of lumbar back pain or lower extremity pain Category: Medical Qualifiers: Disc-related pain type: discogenic back pain only Qualified Code(s): M51.360 - Other intervertebral disc degeneration, lumbar region with discogenic back pain only Plan: Resolved with no recurrence lately Reinforced activity and weight-lifting restrictions Lumbar spine x-rays done back in 2014 revealed (+) hypertrophic sclerotic facet arthropathy at L5-S1, with mild spondylitic changes with endplate spurring Left hip x-rays done in 2018 came out normal Repeat x-rays of the lumbar spine and left hip as well as left SI joint x-rays done back in May 2023 revealed only (+) mild degenerative changes of L4-S1 with straightening of lumbar lordosis; her hip and SI joint x-rays were normal (12) Dizziness: Code(s): R42 - Dizziness and giddiness Category: Medical Plan: Patient states that she still has occasional bouts of dizziness but they are not occurring as often as they used to She was seen by ENT in [place] for further evaluation but states that she was advised that they have not been able to identify what is causing her recurrent symptoms We have not received any reports from ENT so far and will have office request for a copy of her OV notes sent over for review (13) Hearing loss: Code(s): H91.90 - Unspecified hearing loss, unspecified ear Category: Medical Qualifiers: Hearing loss type: unspecified Laterality: unspecified laterality Qualified Code(s): H91.90 - Unspecified hearing loss, unspecified ear Plan: Patient states that she failed her hearing test and was advised to wear hearing aids but she asked to hold off on this as she is concerned about cost and also that she will just end up misplacing her hearing aids (14) Glaucoma: Code(s): H40.9 - Unspecified glaucoma Category: Medical Qualifiers: Glaucoma type: unspecified Laterality: unspecified laterality Qualified Code(s): H40.9 - Unspecified glaucoma Plan: Continue Xalatan 0.005% eye drops 1 drop into affected eye once a day in the evening and Timolol 0.5% eyedrops 1 drop into affected eye once a day Follow up with ophthalmology (Dr. Powell) as scheduled Plan Follow up in 4 months Orders: Orders Complete Blood Count Auto Diff 4 Months D64.9 - Anemia, unspecified Comprehensive [place]. Panel Fast 4 Months E78.00 - Pure hypercholesterolemia, unspecified Lipid Panel 4 Months E78.00 - Pure hypercholesterolemia, unspecified UA CC w/rflx Micro + Cult 4 Months R30.0 - Dysuria Vitamin B12 and Folate 4 Months E53.8 - Deficiency of other specified B group vitamins Free T4 (Free Thyroxine) 4 Months R79.89 - Other specified abnormal findings of blood chemistry Thyroid Stimulating Hormone 4 Months R79.89 - Other specified abnormal findings of blood chemistry Uric Acid 4 Months E79.0 - Hyperuricemia without signs of inflammatory arthritis and tophaceous disease Hemoglobin A1c 4 Months R73.01 - Impaired fasting glucose
== END 2025-02-13 10:22 | disposition home or self-care (01) ==
LOC: HO.HMCH 09:44
PROVIDERS: PCP Internal Medicine; Visit Provider Internal Medicine
DX: E78.00 Pure hypercholesterolemia, unspecified (principal); I10 Essential (primary) hypertension; R73.01 Impaired fasting glucose; M81.0 Age-related osteoporosis without current pathological fracture; J30.89 Other allergic rhinitis; B02.29 Other postherpetic nervous system involvement; R79.89 Other specified abnormal findings of blood chemistry; E55.9 Vitamin D deficiency, unspecified; M19.049 Primary osteoarthritis, unspecified hand; E79.0 Hyperuricemia without signs of inflammatory arthritis and tophaceous disease; M51.360 Other intervertebral disc degeneration, lumbar region with discogenic back pain only; R42 Dizziness and giddiness

== ENCOUNTER → 2025-02-13 09:43 | Outpatient (BNVA) | payer MEDICARE, MEDICAID, SELFPAY | PROVIDERS: PCP Internal Medicine; Visit Provider Internal Medicine | DX: I10 Essential (primary) hypertension (principal); E78.00 Pure hypercholesterolemia, unspecified; R73.01 Impaired fasting glucose; M81.0 Age-related osteoporosis without current pathological fracture; J30.89 Other allergic rhinitis; B02.29 Other postherpetic nervous system involvement; E55.9 Vitamin D deficiency, unspecified; M19.049 Primary osteoarthritis, unspecified hand; M51.360 Other intervertebral disc degeneration, lumbar region with discogenic back pain only; E79.0 Hyperuricemia without signs of inflammatory arthritis and tophaceous disease; R42 Dizziness and giddiness; H40.9 Unspecified glaucoma | CPT/HCPCS: 96127; 99212 ==

== ENCOUNTER 2025-06-11 12:28 | Outpatient (REF) | payer MEDICARE, MEDICAID, SELFPAY | END 2025-06-11 12:29 | disposition home or self-care (01) | LOC: HO.MAMMO 12:28 | PROVIDERS: PCP Internal Medicine; Visit Provider Internal Medicine | DX: Z12.31 Encounter for screening mammogram for malignant neoplasm of breast (principal) | CPT/HCPCS: 77063; 77067 ==

== ENCOUNTER → 2025-06-11 12:45 | Outpatient (BNV) | payer MEDICARE, MEDICAID, SELFPAY | PROVIDERS: PCP Internal Medicine; Visit Provider Internal Medicine | DX: Z12.31 Encounter for screening mammogram for malignant neoplasm of breast (principal) | CPT/HCPCS: 77063; 77067 ==

== ENCOUNTER 2025-06-14 06:08 | Outpatient (REF) | payer MEDICARE, MEDICAID, SELFPAY ==
[2025-06-14 06:25] LABS: MANUAL DIFF FLAG NO
[2025-06-14 07:21] LABS: Hematocrit 36.9 % (37.0-47.0); Hemoglobin 12.1 g/dl (12.0-16.0); Imm Gran Abs Auto 0.02 X10*3/uL (0.00-0.03); Imm Gran Pct Auto 0.3 % (0.0-0.4); Lymphocytes Absolute Auto 1.6 X10*3/uL (1.2-4.9); Mean Corpuscular HGB Conc 32.8 g/dl (31.0-35.0); Mean Corpuscular Hemoglobin 29.4 pg (27.0-33.0); Mean Corpuscular Volume 89.8 fL (80.0-98.0); NRBC Abs Auto 0.000 X10*3/uL (0.0-0.012); NRBC Pct Auto 0.0 /100WBC (0.0-0.2); Platelet Count 300 X10*3/uL (160-400); Red Blood Count 4.11 X10*6/uL (4.20-5.50); White Blood Count 6.7 X10*3/uL (4.8-10.8)
[2025-06-14 07:28] LABS: Appearance Urine Cloudy; Glucose Urine UA Negative (Negative); PH 6.5 (5.0-9.0); Specific Gravity - Urine 1.015 (1.005-1.025); UMIC TRIGGER UACC YES
[2025-06-14 07:32] LABS: UACC Culture Trigger YES
[2025-06-14 07:55] LABS: Alanine Aminotransferase 18 U/L (0-31); Albumin Level 4.7 g/dL (3.5-5.0); Alkaline Phosphatase 74 U/L (39-117); Anion Gap 13 (12-20); Aspartate Amino Transferase 27 U/L (5-31); Blood Urea Nitrogen 22 mg/dL (9-16); Calcium 9.6 mg/dL (8.4-10.2); Carbon Dioxide 30 mmol/L (22-29); Chloride 101 mmol/L (96-108); Cholesterol 182 mg/dL (<200); Estimated Glomerular Filt Rate 55; HDL Cholesterol 60 mg/dL (>40); Potassium 4.1 mmol/L (3.3-5.1); Sodium 140 mmol/L (135-145); Total Protein 7.4 g/dL (6.5-8.0); Triglycerides 137 mg/dL (<150); Uric Acid 7.8 mg/dL (2.4-5.7)
[2025-06-14 08:06] LABS: Free T4 (Free Thyroxine) 0.98 ng/dL (0.71-1.85); Thyroid Stimulating Hormone 7.29 uIU/mL (0.32-4.0)
[2025-06-14 08:18] LABS: Folate 12.9 ng/mL (> or = 4.0); Vitamin B12 314 pg/mL (200-900)
== END 2025-06-14 06:09 | disposition home or self-care (01) ==
LOC: HO.LAB 06:08
PROVIDERS: PCP Internal Medicine; Visit Provider Internal Medicine
DX: D64.9 Anemia, unspecified (principal); E78.00 Pure hypercholesterolemia, unspecified; E79.0 Hyperuricemia without signs of inflammatory arthritis and tophaceous disease; E53.8 Deficiency of other specified B group vitamins; R73.01 Impaired fasting glucose; R30.0 Dysuria
CPT/HCPCS: 36415; 80053; 80061; 81001; 82607; 82746; 83036; 84439; 84443; 84550; 85025; 87086

== ENCOUNTER 2025-06-19 09:45 | Outpatient (AMB) | payer MEDICARE, MEDICAID, SELFPAY ==
[2025-06-19 10:08] VITALS: BP 120/64; PULSE 84; O2SAT 95; BMI 21.8
--- NOTE | 2025-06-19 10:08 | MHC.PC.OV ---
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 Insurance Required: No Accompanied by: Self / Same As Patient Allergies No Known Allergies (No Known Allergies*) Allergy (Verified 06/19/25 10:41) Medication List - Last Reconciled 06/19/25 by Jean Marie Lindsay MD atorvastatin 20 mg PO DAILY cholecalciferol (vitamin D3) 50 mcg PO DAILY 90 days famotidine 40 mg PO BEDTIME fluticasone propionate 50 mcg/actuation 2 sprays intranasal DAILY PRN 30 days hydrochlorothiazide 25 mg PO QAM latanoprost 0.005% 1 drp ophthalmic (eye) BEDTIME loratadine 10 mg PO DAILY PRN ropinirole 0.25 mg PO BEDTIME 30 days timolol maleate 0.5% 0 drps ophthalmic (eye) valsartan 160 mg PO DAILY 90 days Tobacco use date assessed: 06/19/25 Fall risk assessment: No Falls in past year Last assessed Fall Risk: 06/19/25 Dental Screening Dental Screen Date: 06/19/25 Did you have a dental visit in the last 12 months?: No Did you have a dental problem in the last 6 months where you did not have access to dental care?: No Was dental information given to patient?: No HPI [facility] f/u HPI Details Patient comes in today for her follow up visit States that she feels okay She denies any headaches or dizziness Denies any chest pains, no increased SOB but reports that she has a recurrent non-productive cough that comes on consistently whenever she lies down She denies any recent cough or cold symptoms; denies any sore throat No nausea/vomiting, no abdominal pain and she denies any heartburn symptoms lately No change in bowel habits noted She had her follow up labs done a few days ago - to discuss her results Adds that she also needs to get a referral to update her hearing test [facility] Medical History Lumbar degenerative disc disease IFG (impaired fasting glucose) Medicare annual wellness visit, initial Elevated TSH Vitamin D deficiency Allergic rhinitis Glaucoma Osteoporosis Impaired fasting glucose Benign essential hypertension Pure hypercholesterolemia Surgical History Hx of colonoscopy (~09/22/16) History of biopsy History of hard lump in extremity History of breast biopsy History of foot surgery History of tubal ligation Family History Father No problems noted. Mother Breast cancer Sister Breast cancer Sister Uterine cancer Brother DVT (deep venous thrombosis) Social History Housing: House Alcohol intake: current Alcohol intake frequency: a few times a month Alcohol type: wine Patient Tobacco Use Status: Former Tobacco user e-Cigarette/Vaping Use: Never Used Second Hand Smoke Exposure: Yes service: No Current occupational status: retired Cognitive needs: No Hearing needs: No Vision needs: Yes (glasses) Questionnaire PHQ-9 Over the last 2 weeks, how often have you been bothered by any of the following problems? 1. Little interest or pleasure in doing things: not at all 2. Feeling down, depressed, or hopeless: not at all 3. Trouble falling or staying asleep, or sleeping too much: not at all 4. Feeling tired or having little energy: not at all 5. Poor appetite or overeating: not at all 6. Feeling bad about yourself - or that you are a failure or have let yourself or your family down: not at all 7. Trouble concentrating on things, such as reading the newspaper or watching television: not at all 8. Moving or speaking so slowly that other people could have noticed. Or the opposite - being so fidgety or restless that you have been moving around a lot more than usual: not at all 9. Thoughts that you would be better off or of hurting yourself in some way: not at all Total score: 0 Depression Screening Interpretation: Negative Depression Screening Done: Yes 65194 - PHQ-9 Billing: Yes Source: Developed by Drs. Louis House, Supriya Dang, Severo Cid and colleagues, with an educational justine from [employer]. Thrive Questionnaire Date Thrive assessed: 06/19/25 I am a: Patient What is your living situation today?: I have a steady place to live Within the past 12 months, did the food you bought not last and you didn't have the money to get more?: Never true Within the past 12 months, did you worry whether your food would run out before you got money to buy more?: Never true Do you have trouble paying for medicines?: No Do you have trouble getting transportation to medical appointments?: No Do you have trouble paying your heating and electricity bill?: No Do you have trouble taking care of your child, family member or friend?: No Do you have trouble with day-to-day activities such as bathing, preparing meals, shopping, managing finances, etc.?: No Are you currently unemployed and looking for a job?: Yes Are you interested in more education?: No Please select the resources that you would like help with: None Currently or been in a relationship where the following occur: No concerns reported THRIVE Score: 0 AUDIT C Alcohol Use Questionnaire (AUDIT-C) 1. How often do you have a drink containing alcohol?: Monthly or less 2. How many drinks containing alcohol do you have on a typical day when you are drinking?: 1 or 2 Total Score: 1 Score Reviewed/Action Taken: Yes LAITH-7 AMB Questionnaire LAITH-7 Date LAITH - 7 assessed: 06/19/25 Feeling nervous, anxious, or on edge: 0 = Not at all Not being able to stop or control worryin = Not at all Worrying too much about different things: 0 = Not at all Trouble relaxin = Not at all Being so restless that it is hard to sit still: 0 = Not at all Becoming easily annoyed or irritable: 0 = Not at all Feeling afraid as if something awful might happen: 0 = Not at all Total LAITH-7 score (0-4 normal; 5-9 mild; 10-14 moderate; 15-21 severe): 0 Source: Developed by Drs. Louis House, Supriya Dang, Severo Cid and colleagues, with an educational justine from [employer]. Review of Systems Const Denies chills, Denies fatigue, Denies fever(s) and Denies headache(s) ENT Denies dysphagia, Denies dizziness, Denies otalgia, Denies headache(s), Reports hearing loss, Denies neck pain, Denies odynophagia and Denies sore throat Card Denies chest pain, Denies rapid heart rate, Denies palpitations and Denies dyspnea Resp Denies chest congestion, Reports cough (on and off, nonproductive; occurring mostly when she lies down) and Denies dyspnea GI Denies abdominal pain, Denies constipation, Denies dysphagia, Denies heartburn, Denies diarrhea, Denies nausea, Denies odynophagia and Denies vomiting Denies difficulty voiding, Denies nocturia, Denies dysuria and Denies urinary urgency Musc Reports back pain (on and off, over the right lower back), Denies arthralgias, Denies neck pain and Reports numbness (on and off in the toes - worse at night) Skin/Breast Denies rash Neuro Denies dizziness, Denies headache(s) and Reports numbness (on and off in the toes - worse at night) Endo Denies fatigue and Denies palpitations Physical exam (Primary Care) Vital Signs: Last Vital Signs Pulse 84 06/19/25 10:08 BP 120/64 06/19/25 10:08 Pulse Ox 95 06/19/25 10:08 Oxygen Delivery Method Room Air 06/19/25 10:08 BMI result Body Mass Index 21.8 Tobacco/Smoking Status: Tobacco use Status Tobacco use date assessed 06/19/25 06/19/25 10:16 Patient Tobacco Use Status Former Tobacco user 06/19/25 10:16 e-Cigarette/Vaping Use Never Used 06/19/25 10:16 PHQ-9: PHQ-9 Score PHQ-9: Total score 0 06/19/25 10:51 Depression Screening Interpretation: Negative Thrive Assessment: Date of Thrive Assessment Date Thrive assessed 06/19/25 06/19/25 10:16 Currently or been in a relationship where the following occur: No concerns reported Const General: no acute distress and alert HENMT Ears: TM's normal bilaterally and EAC's normal Throat: Yes posterior oropharynx normal and Yes tonsils normal (no TP congestion noted) Neck Neck: Yes supple and No lymphadenopathy Thyroid: Thyroid normal Resp Auscultation: clear to auscultation bilaterally, no rales and no wheezes Cardio Rate: regular rate Rhythm: regular rhythm Heart sounds: no murmurs GI Palpation (GI): Soft to palpation and nontender Auscultation: normal bowel sounds General: Yes no CVA tenderness Back/Spine/Pelvis Back: no CVA tenderness Thoracic/Lumbar Spine: lumbar spinal tenderness (mild) Skin Rashes: no rashes Extrem General: Yes no clubbing, cyanosis or edema Results Reviewed Results Reviewed: Laboratory Tests 06/14/25 06/14/25 06:14 06:19 WBC 6.7 Hgb 12.1 Hct 36.9 L Plt Count 300 Sodium 140 Potassium 4.1 Creatinine 0.98 Estimated GFR 55 Fasting Glucose 102 H Hemoglobin A1c % 6.1 H Uric Acid 7.8 H Calcium 9.6 AST 27 ALT 18 Triglycerides 137 Cholesterol 182 LDL Cholesterol, Calc 95 HDL Cholesterol 60 Vitamin B12 314 TSH 7.29 H Free T4 0.98 Ur Specific [place] 1.015 Urine Protein Negative Urine Glucose (UA) Negative Urine Blood Trace H Urine Nitrite Negative Ur Leukocyte Esterase Moderate (2+) H Coding Level of Care Code Est Pt Level 4 (60074) Add On Problem Visit Only Diagnoses Pure hypercholesterolemia E78.00 Benign essential hypertension I10 Impaired fasting glucose R73.01 Age-related osteoporosis without current pathological fracture M81.0 Osteoporosis type: age-related Presence of current pathological fracture: without current pathological fracture Non-seasonal allergic rhinitis, unspecified trigger J30.89 Allergic rhinitis trigger: unspecified Allergic rhinitis seasonality: non-seasonal Nocturnal cough R05.8 Postherpetic neuralgia B02.29 Elevated TSH R79.89 Vitamin D deficiency E55.9 Osteoarthritis of finger, 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 Laterality: unspecified laterality Hyperuricemia E79.0 Degeneration of intervertebral disc of lumbar region with discogenic back pain M51.360 Disc-related pain type: discogenic back pain only Hearing loss, unspecified hearing loss type, unspecified laterality H91.90 Hearing loss type: unspecified Laterality: unspecified laterality Glaucoma, unspecified glaucoma type, unspecified laterality H40.9 Glaucoma type: unspecified Laterality: unspecified laterality Additional Codes PHQ-9 - 41693 - PHQ-9 Billing: Yes ([id number]) Assessment & Plan Assessment & Plan (1) Pure hypercholesterolemia: Code(s): E78.00 - Pure hypercholesterolemia, unspecified Category: Medical Plan: Results of her labs done a few days ago reviewed and discussed with patient Reinforced low cholesterol diet Continue Atorvastatin 20 mg QD Will recheck her labs and fasting lipids in 4 months for follow up (2) Benign essential hypertension: Code(s): I10 - Essential (primary) hypertension Category: Medical Plan: Reinforced low sodium diet - goal is systolic BP of 130 to 140 mm or less Continue Valsartan 160 mg QD and HCTZ 25 mg QD Patient is reminded to continue monitoring her blood pressure regularly (3) Impaired fasting glucose: Code(s): R73.01 - Impaired fasting glucose Category: Medical Plan: Her HgbA1c was unchanged at 6.1% on her labs done a few days ago - was previously also at 6.1% a few months ago Reinforced low calorie/low carb diet/exercise as tolerated (4) Osteoporosis: Comment: BMD done in 2018 showed (+) osteoporosis - was started by previous PCP (Dr. Shearer) on Alendronate Rx in 2018 Code(s): M81.0 - Age-related osteoporosis without current pathological fracture Category: Medical Qualifiers: Osteoporosis type: age-related Presence of current pathological fracture: without current pathological fracture Qualified Code(s): M81.0 - Age-related osteoporosis without current pathological fracture Plan: Patient is S/P Tx with Alendronate x 5 years - Tx was started sometime in 2017 and completed at the end of 2022 Her repeat BMD done on 05/05/2024 revealed (+) improvement from previous and she is now in the osteopenic range, based on the lowest T-score value of -1.5 in the lumbar spine Patient is encouraged again to continue to stay active and exercise regularly and to continue on oral Calcium and Vitamin D supplements daily Will continue to monitor her BMD every 2 to 3 years (5) Allergic rhinitis: Code(s): J30.9 - Allergic rhinitis, unspecified Category: Medical Qualifiers: Allergic rhinitis trigger: unspecified Allergic rhinitis seasonality: non-seasonal Qualified Code(s): J30.89 - Other allergic rhinitis Plan: Continue Loratadine 10 mg QD PRN and Fluticasone 50 mcg nasal spray QD PRN (6) Nocturnal cough: Code(s): R05.8 - Other specified cough Category: Medical Plan: Have advised patient that her recent recurrent cough when she lies down at night is likely due to allergies or reflux She takes medications for her allergies on an as-needed basis Will send patient for an upper GI series for further evaluation - explained to patient that in this case, reflux disease is most likely reason for her recurrent cough and one does not need to have actual heartburn symptoms with acid reflux disease (7) Postherpetic neuralgia: Comment: S/P shingles in late April 2021 Code(s): B02.29 - Other postherpetic nervous system involvement Category: Medical Plan: S/P shingles in late April 2021; symptoms have improved a lot since Continue Gabapentin 100 mg TID (8) Elevated TSH: Code(s): R79.89 - Other specified abnormal findings of blood chemistry Category: Medical Plan: Her TSH is still elevated but free T4 remains normal on her recent labs Patient remains clinically euthyroid Will continue to monitor her TFTs regularly (9) Vitamin D deficiency: Code(s): E55.9 - Vitamin D deficiency, unspecified Category: Medical Plan: Continue Vitamin D3 2000 units QD (10) Osteoarthritis of finger: Code(s): M19.049 - Primary osteoarthritis, unspecified hand Category: Medical Qualifiers: Laterality: unspecified laterality Qualified Code(s): M19.049 - Primary osteoarthritis, unspecified hand Plan: X-rays of the right hand done in October 2021 revealed (+) advanced degenerative changes in the DIP joint of the 2nd digits with exuberant periarticular spurring and mild soft tissue swelling. There are mild degenerative osteoarthritic changes PIP and DIP joints of the 2nd through 5th digits Patient states that her joint pains (in her hands) have been mostly manageable and she takes OTC Ibuprofen only as needed (11) Hyperuricemia: Code(s): E79.0 - Hyperuricemia without signs of inflammatory arthritis and tophaceous disease Category: Medical Plan: Her serum uric acid level is still elevated at 7.8 on her recent labs (was previously at 7.9 a few months ago) Patient denies experiencing any acute gout flares/joint pains other than those in her left lower back and hands/fingers, which are not due to gout Reinforced low purine diet Will continue to monitor her serum uric acid level regularly (12) Lumbar degenerative disc disease: Code(s): M51.369 - Other intervertebral disc degeneration, lumbar region without mention of lumbar back pain or lower extremity pain Category: Medical Qualifiers: Disc-related pain type: discogenic back pain only Qualified Code(s): M51.360 - Other intervertebral disc degeneration, lumbar region with discogenic back pain only Plan: Patient states that her lower back symptoms have resolved with no recurrence lately Reinforced activity and weight-lifting restrictions Lumbar spine x-rays done back in 2014 revealed (+) hypertrophic sclerotic facet arthropathy at L5-S1, with mild spondylitic changes with endplate spurring Left hip x-rays done in 2018 came out normal Repeat x-rays of the lumbar spine and left hip as well as left SI joint x-rays done back in May 2023 revealed only (+) mild degenerative changes of L4-S1 with straightening of lumbar lordosis; her hip and SI joint x-rays were normal (13) Hearing loss: Code(s): H91.90 - Unspecified hearing loss, unspecified ear Category: Medical Qualifiers: Hearing loss type: unspecified Laterality: unspecified laterality Qualified Code(s): H91.90 - Unspecified hearing loss, unspecified ear Plan: Patient states that she failed her hearing test and was advised to wear hearing aids but she asked to hold off on this previously as she was concerned about cost and also that she will just end up misplacing her hearing aids Per request, we will refer her back to speech and hearing to have her hearing test updated (14) Glaucoma: Code(s): H40.9 - Unspecified glaucoma Category: Medical Qualifiers: Glaucoma type: unspecified Laterality: unspecified laterality Qualified Code(s): H40.9 - Unspecified glaucoma Plan: Continue Xalatan 0.005% eye drops 1 drop into affected eye once a day in the evening and Timolol 0.5% eyedrops 1 drop into affected eye once a day Follow up with ophthalmology (Dr. Powell) as scheduled Plan Follow up in 4 months Orders: Orders Lipid Panel 4 Months E78.00 - Pure hypercholesterolemia, unspecified [place] upper GI series 06/19/25 K21.9 - Gastro-esophageal reflux disease without esophagitis, R05.8 - Other specified cough Hemoglobin A1c 4 Months R73.01 - Impaired fasting glucose UA CC w/rflx Micro + Cult 4 Months R30.0 - Dysuria Free T4 (Free Thyroxine) 4 Months R79.89 - Other specified abnormal findings of blood chemistry Thyroid Stimulating Hormone 4 Months R79.89 - Other specified abnormal findings of blood chemistry Complete Blood Count Auto Diff 4 Months D64.9 - Anemia, unspecified Comprehensive [place]. Panel Fast 4 Months E78.00 - Pure hypercholesterolemia, unspecified Vitamin D 25-OH Total 4 Months E55.9 - Vitamin D deficiency, unspecified Thyroid Peroxidase Antibodies 4 Months R79.89 - Other specified abnormal findings of blood chemistry Referrals Speech and Hearing Referral H91.90 - Unspecified hearing loss, unspecified ear
== END 2025-06-19 10:54 | disposition home or self-care (01) ==
LOC: HO.HMCH 09:46
PROVIDERS: PCP Internal Medicine; Visit Provider Internal Medicine
DX: E78.00 Pure hypercholesterolemia, unspecified (principal); I10 Essential (primary) hypertension; R73.01 Impaired fasting glucose; M81.0 Age-related osteoporosis without current pathological fracture; J30.89 Other allergic rhinitis; R05.8 Other specified cough; B02.29 Other postherpetic nervous system involvement; R79.89 Other specified abnormal findings of blood chemistry; E55.9 Vitamin D deficiency, unspecified; M19.049 Primary osteoarthritis, unspecified hand; E79.0 Hyperuricemia without signs of inflammatory arthritis and tophaceous disease; M51.360 Other intervertebral disc degeneration, lumbar region with discogenic back pain only; H91.90 Unspecified hearing loss, unspecified ear; H40.9 Unspecified glaucoma

== ENCOUNTER → 2025-06-19 09:45 | Outpatient (BNVA) | payer MEDICARE, MEDICAID, SELFPAY | PROVIDERS: PCP Internal Medicine; Visit Provider Internal Medicine | DX: M81.0 Age-related osteoporosis without current pathological fracture (principal); I10 Essential (primary) hypertension; R73.01 Impaired fasting glucose; R79.89 Other specified abnormal findings of blood chemistry; R05.8 Other specified cough; E78.00 Pure hypercholesterolemia, unspecified; E55.9 Vitamin D deficiency, unspecified; J30.89 Other allergic rhinitis; B02.29 Other postherpetic nervous system involvement; M19.049 Primary osteoarthritis, unspecified hand; E79.0 Hyperuricemia without signs of inflammatory arthritis and tophaceous disease; M51.360 Other intervertebral disc degeneration, lumbar region with discogenic back pain only; H91.90 Unspecified hearing loss, unspecified ear; H40.9 Unspecified glaucoma | CPT/HCPCS: 96127; 99212 ==